=== PATIENT | male | born 1955 | race Caucasian/White ===

== ENCOUNTER 2016-08-25 19:56 | Observation (INO) | payer SELFPAY ==
--- NOTE | 2016-08-25 20:51 | CT ---
EXAM DESCRIPTION: CT HEAD WITHOUT INTRAVENOUS CONTRAST CLINICAL HISTORY: Dizziness COMPARISON: None TECHNIQUE: CT of the head was performed without intravenous contrast . FINDINGS: There is no intracranial hemorrhage, midline shift, mass effect or acute focal infarct. An MRI examination is more sensitive than the current study in evaluation of early acute infarcts, if present or clinically suspected. There is good deng/white matter differentiation. The ventricular system is normal. Visualized mastoid air cells are unremarkable. The paranasal sinuses show underlying changes of mild chronic sinusitis. There is no visualization of calvarial or skull base fractures. IMPRESSION: There are no acute intracranial findings. Electronically signed by: Wyatt Choe MD 08/25/2016 20:50
--- NOTE | 2016-08-25 20:53 | RAD ---
EXAM DESCRIPTION: X-RAY CHEST- TWO VIEW CLINICAL HISTORY: Dizziness. COMPARISON: 08/06/2016 TECHNIQUE: 2.0 views of the chest. FINDINGS: Chronic prominence of the interstitium is seen in the bilateral lung granados, without any superimposed airspace infiltrates or pleural effusions. There are no pneumothoraces. The cardiomediastinal contour is suggestive of stable cardiomegaly. IMPRESSION: Stable cardiomegaly without any acute lung parenchymal process Electronically signed by: Wyatt Choe MD 08/25/2016 20:51
[2016-08-25] MEDS ORDERED: ONDANSETRON ODT 8 MG TAB SL SCH (21:30)
[2016-08-25] MEDS ORDERED: MECLIZINE HCL 12.5 MG TAB PO ONE (22:00)
[2016-08-25] MEDS ORDERED: LACTATED RINGERS 500 ML IVS ONE (23:22)
[2016-08-25] MEDS ORDERED: IPRATROPIUM/ALBUTEROL 3 ML VIAL NEB ONE (23:23)
[2016-08-25] MEDS ORDERED: SUCRALFATE 1 GM/10 ML 1 GM UD PO ONE (23:26)
--- NOTE | 2016-08-26 00:32 | ED.PDOC ---
History of Present Illness - General Chief Complaint: General Stated Complaint: Dizzy Time Seen by Provider: 08/25/16 20:06 Source: patient Exam Limitations: no limitations - History of Present Illness Initial Comments: the patient is 60-year-old male presenting to the emergency room secondary to dizziness. It started at our so after he went to bed from eating. He has had difficulty standing since. He has also had some mild nausea. He is very anxious and has had a history of anxiety. He does have a history of significant pulmonary hypertension along with COPD and diabetes. He does take multiple medications which can certainly upset his stomach. No fevers. No sore throat. No significant near syncope. Timing/Duration: 1-3 hours Severity: moderate Improving Factors: rest Worsening Factors: movement Associated Symptoms: malaise, nausea/vomiting, shortness of breath, weakness Allergies/Adverse Reactions: Allergies Codeine Allergy (Verified 08/07/16 13:07) Penicillins Allergy (Verified 08/07/16 13:07) Home Medications: Ambulatory Orders Aspirin [Aspirin Adult Low Dose] 81 mg PO DAILY 06/08/16 Empagliflozin-Linagliptin [Glyxambi 10-5 mg] 1 tab PO DAILY 06/08/16 Glipizide [Glipizide Xl] 2.5 mg PO DAILY 06/08/16 Hydrochlorothiazide 25 mg PO MOWETH@0900 06/08/16 Ipratropium/Albuterol Inhaler [Combivent Respimat 20-100 Mcg/Act] 120 puff INH PRN PRN 06/08/16 Lisinopril 10 mg PO DAILY 06/08/16 amLODIPine BESYLATE [Norvasc] 5 mg PO DAILY 06/08/16 Azithromycin 500 mg PO DAILY #3 tab 07/15/16 Fluticasone Furoate-Vilanterol [Breo Ellipta] 1 inh IN DAILY #30 inh 07/15/16 Metoprolol Tartrate [Lopressor] 25 mg PO BIDFD #60 tab 07/15/16 guaiFENesin ER TAB [Mucinex Tab] 600 mg PO BID #60 tab 07/15/16 predniSONE [Prednisone] 10 mg PO DAILY #30 tab 07/15/16 Furosemide [Lasix] 20 mg PO DAILY #33 tab 08/06/16 Potassium Chloride Tab [K-Dur] 20 meq PO DAILY #30 tab 08/06/16 Ciprofloxacin [Cipro] 500 mg PO BID #10 tab 08/07/16 Review of Systems - Review of Systems Constitutional: States: malaise EENTM: States: no symptoms reported Respiratory: States: short of breath - chronic Cardiology: States: no symptoms reported Gastrointestinal/Abdominal: States: nausea Genitourinary: States: no symptoms reported Musculoskeletal: States: no symptoms reported Skin: States: no symptoms reported Neurological: States: other - he reports mild generalized weakness and moderate dizziness. All other Systems: No Change from Baseline Past Medical History (General) - Patient Medical History Hx Seizures: No Hx Stroke: No Hx Dementia: No Hx Asthma: No Hx of COPD: Yes Hx Cardiac Disorders: No Hx Congestive Heart Failure: Yes Hx Pacemaker: No Hx Hypertension: Yes Hx Thyroid Disease: No Hx Diabetes: Yes Hx Gastroesophageal Reflux: No Hx Renal Disease: No Hx Cancer: No Hx of HIV: No Hx Hepatitis C: No Hx MRSA: No Surgical History: tonsillectomy - Vaccination History Hx Tetanus, Diphtheria Vaccination: Yes Hx Influenza Vaccination: Yes Hx Pneumococcal Vaccination: Yes Immunizations Up to Date: Yes - Social History Hx Tobacco Use: No Hx Chewing Tobacco Use: Yes - chews on cigars Hx Alcohol Use: No Hx Substance Use: No Hx Substance Use Treatment: No Hx Depression: No Hx Physical Abuse: No Hx Emotional Abuse: No Hx Suspected Abuse: No - Activities of Daily Living Hospice Agency (if applicable):: None - Female History Patient : No Family Medical History - Family History Mother Living Status: Hx Cardiac Disease: Yes Hx Family Diabetes: Yes Brother Family History: Unknown Name: Eliezer Braden Age (years): 60 Living Status: Still Living Hx Family Asthma: No Hx Family Congestive Heart Failure: No Hx Family Hypertension: Yes Hx Family Stroke: No Hx Cardiac Disease: No Hx Family Diabetes: Yes Hx Family Cancer: No Physical Exam - Physical Exam General Appearance: Alert, Anxious, No apparent distress Eye Exam: bilateral normal - no significant abnormal nystagmus. Visual acuity appears preserved once his glasses are cleaned Ears, Nose, Throat: normal pharynx, other - bilateral cerumen impaction. Neck: full range of motion, supple Respiratory: chest non-tender, lungs clear, normal breath sounds, no respiratory distress, no accessory muscle use Cardiovascular/Chest: normal peripheral pulses, regular rate, rhythm, no edema Peripheral Pulses: radial,right: 2+, radial,left: 2+, dorsalis pedis,right: 2+, dorsalis pedis,left: 2+ Gastrointestinal/Abdominal: non tender, soft Rectal Exam: deferred Back Exam: normal inspection Extremity: normal range of motion, non-tender, normal inspection, no pedal edema , normal capillary refill Neurologic: alert, oriented x 3 - moderately anxious Skin Exam: normal color Comments: Vital Signs - 24 hr 08/25/16 08/25/16 08/25/16 20:00 20:02 23:40 Temperature 97.3 F L Pulse Rate 62 57 L Pulse Rate [ 62 62 Left Radial] Respiratory 20 20 18 Rate Blood Pressure 141/69 [Left Arm] O2 Sat by Pulse 97 98 Oximetry Progress - Progress Progress: 08/26/16 00:34 the patient is a 60-year-old male presenting to the emergency room secondary to dizziness and nausea. The source of this is uncertain at this time. Head CT is negative. Lab work is otherwise within normal limits with this patient. His blood pressure is mildly low for him. He may be having some orthostatic issues. He is receiving a small fluid bolus to see if this improves his situation. Additionally he does have significant anxiety which is likely contributing. The patient will be monitored overnight due to his significant cardiopulmonary issues. It is entirely possible he may be coming down with a gastroenteritis giving him these symptoms, however at this time it is simply not clear. He is too shaky on his feet to go home and care for himself at this time. Admit and follow for issues above. - Results/Orders Results/Orders: 08/25/16 20:07 Telemetry .CONTINUOUS 08/25/16 20:15 EKG STAT normal sinus rhythm. Mild right axis deviation. PACs. Poor R-wave progression. No acute ST segment changes otherwise concerning for ischemia. Chest x-ray shows no definitive infiltrate. it does show chronic changes. Moderate cardiomegaly. 08/25/16 21:30 Ondansetron Odt [Zofran ODT] 4 mg SL ONCE 08/25/16 23:40 SVN/Updraft Therapy ONCE Laboratory Results - last 24 hr 08/25/16 08/25/16 20:35 22:48 WBC 7.7 RBC 4.70 Hgb 14.7 Hct 43.5 MCV 92.6 MCH 31.3 H MCHC 33.9 RDW 14.3 Plt Count 137 MPV 7.4 Absolute Neuts (auto) 4.20 Absolute Lymphs (auto) 2.60 Absolute Monos (auto) 0.70 Absolute Eos (auto) 0.10 Absolute Basos (auto) 0.10 Neutrophils % 54.6 Lymphocytes % 33.4 Monocytes % 9.3 H Eosinophils % 1.6 Basophils % 1.1 PT 11.2 INR 0.990 PTT (SP) 32.6 Sodium 137 Potassium 3.8 Chloride 102 Carbon Dioxide 28 Anion Gap 10.8 L BUN 17 Creatinine 0.79 BUN/Creatinine Ratio 21.5 H Random Glucose 153 H Serum Osmolality 278.4 Calcium 9.1 Magnesium 1.8 Total Bilirubin 0.3 AST 27 ALT 39 Alkaline Phosphatase 62 Creatine Kinase 51 CK-MB (CK-2) 1.1 CK-MB (CK-2) % Not Reportable Troponin I < 0.02 B-Natriuretic Peptide 16.2 Serum Total Protein 6.9 Albumin 4.0 Globulin 2.9 Albumin/Globulin Ratio 1.4 Urine Color Yellow Urine Appearance Clear Urine pH 7.0 Ur Specific Ashley 1.015 Urine Protein Negative Urine Glucose (UA) >=1000 H Urine Ketones Negative Urine Blood Trace-lysed H Urine Nitrite Negative Urine Bilirubin Negative Urine Urobilinogen 1.0 Ur Leukocyte Esterase Negative Urine RBC 1-3 Urine WBC 0-1 Ur Epithelial Cells 0-1 Urine Bacteria 0 - EKG/XRAY/CT CT Ordered: Yes Departure - Departure Clinical Impression: Dizziness, Nausea, Dehydration, mild Disposition: Admit Patient Home Medications: Ambulatory Orders Aspirin [Aspirin Adult Low Dose] 81 mg PO DAILY 06/08/16 Empagliflozin-Linagliptin [Glyxambi 10-5 mg] 1 tab PO DAILY 06/08/16 Glipizide [Glipizide Xl] 2.5 mg PO DAILY 06/08/16 Hydrochlorothiazide 25 mg PO MOWETH@0900 06/08/16 Ipratropium/Albuterol Inhaler [Combivent Respimat 20-100 Mcg/Act] 120 puff INH PRN PRN 06/08/16 Lisinopril 10 mg PO DAILY 06/08/16 amLODIPine BESYLATE [Norvasc] 5 mg PO DAILY 06/08/16 Azithromycin 500 mg PO DAILY #3 tab 07/15/16 Fluticasone Furoate-Vilanterol [Breo Ellipta] 1 inh IN DAILY #30 inh 07/15/16 Metoprolol Tartrate [Lopressor] 25 mg PO BIDFD #60 tab 07/15/16 guaiFENesin ER TAB [Mucinex Tab] 600 mg PO BID #60 tab 07/15/16 predniSONE [Prednisone] 10 mg PO DAILY #30 tab 07/15/16 Furosemide [Lasix] 20 mg PO DAILY #33 tab 08/06/16 Potassium Chloride Tab [K-Dur] 20 meq PO DAILY #30 tab 08/06/16 Ciprofloxacin [Cipro] 500 mg PO BID #10 tab 08/07/16 Decision To Admit - Decistion To Admit Decision to Admit Reason: Medical Nature Decision to Admit Date: 08/26/16 Decision to Admit Time: 00:36
[2016-08-26] MEDS ORDERED: ACETAMINOPHEN 325 MG TAB PO PRN (02:32)
[2016-08-26] MEDS ORDERED: SODIUM CHLORIDE 0.9% (FLUSH) 10 ML SYG IV PRN (02:32)
[2016-08-26] MEDS ORDERED: ALBUTEROL SULFATE 2.5 MG/3 ML VIAL NEB PRN (02:32)
[2016-08-26] MEDS ORDERED: ONDANSETRON INJ 4 MG/2 ML VIAL IV PRN (02:32)
[2016-08-26] MEDS ORDERED: ALPRAZolam 0.25 MG TAB PO PRN (02:41)
[2016-08-26] MEDS ORDERED: KCL 20MEQ/D5NS 1,000 ML IVS PRN (02:42)
[2016-08-26] MEDS ORDERED: IV SET AND CAP CHANGE INJ INJ SCH (03:00)
[2016-08-26] MEDS ORDERED: KCL 20 MEQ/NS 1,000 ML IVS ONE (03:06)
[2016-08-26] MEDS ORDERED: KCL 20 MEQ/NS 1,000 ML IVS PRN (03:08)
[2016-08-26 06:37] VITALS: BP 143/77; TEMP 97.5; O2SAT 97
[2016-08-26] MEDS ORDERED: DEXTROSE 50% 25 GM/50 ML SYG IV PRN (07:12)
[2016-08-26] MEDS ORDERED: GLUCAGON INJ 1 MG VIAL SUBCU PRN (07:12)
[2016-08-26] MEDS ORDERED: IPRATROPIUM/ALBUTEROL 3 ML VIAL INH SCH (08:00)
[2016-08-26] MEDS ORDERED: SODIUM CHLORIDE 0.9% (FLUSH) 10 ML SYG IV SCH (09:00)
--- NOTE | 2016-08-26 10:04 | SSS ---
DATE OF ADMISSION: 08/26/16 DATE OF DISCHARGE: 08/26/16 SUPERVISING PHYSICIAN: Shaina Fulton MD CHIEF COMPLAINT: Dizziness. HISTORY OF PRESENT ILLNESS: This is a 60-year-old male who presents to the Emergency Room secondary to dizziness. It started earlier in the evening. He was visiting with friends and after he was eating, he became very dizzy. He had difficulty standing and he also had some mild nausea with one or two bouts of vomiting. He also complains of anxiety as he has a significant history of anxiety. He also has pulmonary hypertension, chronic obstructive pulmonary disease and diabetes. He takes multiple medications and it is unclear whether any of them were new that may have caused the dizziness as well as stomach upset. He had difficulty standing up in the Emergency Room, but his CBC was basically within normal limits. His chemistry was also basically within normal limits. His urinalysis showed a glucose of greater than 1000 as well as trace of lysed urine blood. It was otherwise negative. He had a head CT done and it showed no acute intracranial findings. His chest x-ray showed stable cardiomegaly without any acute lung parenchymal processes. He was given some Carafate and ranitidine in the Emergency Room. He was also given some meclizine. He received 1 liter of fluids and I was called for admission for observation. PAST MEDICAL HISTORY: 1. Hypertension. 2. Chronic obstructive pulmonary disease. 3. Diabetes mellitus, type 2. 4. Obesity. 5. Sleep apnea. 6. Emphysema. 7. History of plantar fasciitis. PAST SURGICAL HISTORY: 1. Tonsillectomy as a child. 2. Right arm [place] [address] Nix. CURRENT MEDICATIONS: Per the EMR and awaiting verification. ALLERGIES: CODEINE, PENICILLIN. FAMILY HISTORY: Positive for coronary artery disease and diabetes. SOCIAL HISTORY: The patient is a former smoker. He denies smoking in the last four to five months. He denies any ETOH use or illicit drug use. 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 He is single and lives in [place]. REVIEW OF SYSTEMS: GENERAL: Denies fever, fatigue or weight gain. HEENT: Complains of seasonal allergies although he is not having problems at this time. Denies ear pain, vision changes or sinus symptoms. RESPIRATORY: Complains of occasional wheezing and coughing, but denies shortness of breath. CARDIAC: Denies chest pain, palpitations or tachycardia. GASTROINTESTINAL: Complains of nausea with no vomiting although earlier today, he had several bouts of vomiting. GENITOURINARY: No dysuria or hematuria. EXTREMITIES: Denies any swelling or pain. NEUROLOGIC: Complains of dizziness and some generalized weakness. Denies any headaches or seizures. PHYSICAL EXAMINATION: VITAL SIGNS: Afebrile. Heart rate 62. Blood pressure 143/77. Respiratory rate 20. O2 saturation 97%. GENERAL: This is a 60-year-old, obese male who is lying in his hospital bed. He is in no acute distress. HEENT: Normocephalic, atraumatic. Pupils are equal and reactive. Oropharynx is clear. Oral mucous membranes are moist. NECK: Supple without mass. No jugular venous distention. RESPIRATORY: Somewhat diminished throughout, otherwise clear to auscultation bilaterally. CHEST: There is equal rise and fall of the chest with inspiration and expiration. CARDIAC: Regular rate and rhythm. ABDOMEN: Soft, very large and rounded. Bowel sounds are positive. EXTREMITIES: No cyanosis, clubbing or edema. NEUROLOGIC: Awake, alert and oriented times three. LABORATORY: Laboratory and films are as per the history of present illness. ASSESSMENT: 1. Dizziness, resolved with fluids and Antivert. 2. Nausea and vomiting, resolved with hydration and Carafate. 3. Chronic obstructive pulmonary disease with poor compliance. 4. Generalized weakness. 5. Obesity. 6. History of tobacco abuse. PLAN: The patient was admitted overnight. He was given fluids. He required no further antiemetics. His vital signs were stable overnight. He will be discharged this morning in stable condition. He is to continue his present home medications. I have added Antivert for him for the dizziness. He is to followup closely with Sandra Ho at [facility] within the next one to two weeks. Otherwise, he can return to the hospital or followup with [facility] for any further problems. Dr. Fulton is the collaborating physician and available for consultation. #[id number] [facility]ITALR[facility]
[2016-08-26] MEDS ORDERED: INSULIN LISPRO 100 UNITS/ML PEN SUBCU SCH (11:30)
== END 2016-08-26 08:26 | disposition home or self-care (01) ==
LOC: ER 19:56 → MS 08-26 02:01
PROVIDERS: ADMIT Nurse Practitioner Acute Care; ATTEND Nurse Practitioner Acute Care
DX: R42 Dizziness and giddiness (principal); R11.2 Nausea with vomiting, unspecified; J44.9 Chronic obstructive pulmonary disease, unspecified; R53.1 Weakness; E66.9 Obesity, unspecified; I10 Essential (primary) hypertension; E11.9 Type 2 diabetes mellitus without complications; G47.30 Sleep apnea, unspecified; Z68.35 Body mass index [BMI] 35.0-35.9, adult; Z79.82 Long term (current) use of aspirin; Z79.84 Long term (current) use of oral hypoglycemic drugs; Z79.52 Long term (current) use of systemic steroids; Z79.899 Other long term (current) drug therapy; Z88.0 Allergy status to penicillin; Z88.6 Allergy status to analgesic agent; Z87.891 Personal history of nicotine dependence; Z82.49 Family history of ischemic heart disease and other diseases of the circulatory system; Z83.3 Family history of diabetes mellitus

== ENCOUNTER → 2016-11-12 | Outpatient (CLI) | payer SELFPAY | END | disposition home or self-care (01) | LOC: LAB.O 07:50 | PROVIDERS: ATTEND Internal Medicine Endocrinology, Diabetes & Metabolism | DX: E11.65 Type 2 diabetes mellitus with hyperglycemia (principal) ==

== ENCOUNTER 2016-12-28 17:32 | Emergency (ER) | payer SELFPAY ==
[2016-12-28 17:49] VITALS: BP 151/74
--- NOTE | 2016-12-28 18:14 | ED.PDOC ---
History of Present Illness - General Chief Complaint: ENT Problem Stated Complaint: sorethroat Time Seen by Provider: 12/28/16 18:14 Source: patient Exam Limitations: no limitations - History of Present Illness Initial Comments: Jose Francisco Braden 60 y/o male with DM2 and HTN stated started having achy throat and slight cough yesterday which had got worse today. Timing/Duration: yesterday EENT Location: throat Prearrival Treatment: no prearrival treatment Improving Factors: rest Worsening Factors: nothing Associated Symptoms: cough Allergies/Adverse Reactions: Allergies Codeine Allergy (Verified 12/28/16 17:47) Penicillins Allergy (Verified 12/28/16 17:47) Home Medications: Ambulatory Orders Aspirin [Aspirin Adult Low Dose] 81 mg PO DAILY 06/08/16 Empagliflozin-Linagliptin [Glyxambi 10-5 mg] 1 tab PO DAILY 06/08/16 Glipizide [Glipizide Xl] 2.5 mg PO DAILY 06/08/16 Hydrochlorothiazide 25 mg PO MOWETH@0900 06/08/16 Ipratropium/Albuterol Inhaler [Combivent Respimat 20-100 Mcg/Act] 120 puff INH PRN PRN 06/08/16 Lisinopril 10 mg PO DAILY 06/08/16 amLODIPine BESYLATE [Norvasc] 5 mg PO DAILY 06/08/16 Fluticasone Furoate-Vilanterol [Breo Ellipta 100-25 Mcg/INH] 1 inh IN DAILY #30 inh 07/15/16 Metoprolol Tartrate [Lopressor] 25 mg PO BIDFD #60 tab 07/15/16 guaiFENesin ER TAB [Mucinex Tab] 600 mg PO BID #60 tab 07/15/16 Furosemide [Lasix] 20 mg PO DAILY #33 tab 08/06/16 Potassium Chloride Tab [K-Dur] 20 meq PO DAILY #30 tab 08/06/16 Meclizine HCl 25 mg PO Q4H PRN #100 tab 08/26/16 Doxycycline Hyclate 100 mg PO BID #14 tab 12/28/16 Review of Systems - Review of Systems Constitutional: States: no symptoms reported EENTM: States: see HPI Respiratory: States: see HPI, cough - slightly productive Cardiology: States: no symptoms reported Gastrointestinal/Abdominal: States: no symptoms reported Genitourinary: States: no symptoms reported Musculoskeletal: States: no symptoms reported Skin: States: no symptoms reported Neurological: States: no symptoms reported Endocrine: States: no symptoms reported Hematologic/Lymphatic: States: no symptoms reported Past Medical History (General) - Patient Medical History Hx Seizures: No Hx Stroke: No Hx Dementia: No Hx Asthma: No Hx of COPD: Yes Hx Cardiac Disorders: No Hx Congestive Heart Failure: No Hx Pacemaker: No Hx Hypertension: Yes Hx Thyroid Disease: No Hx Diabetes: Yes Hx Gastroesophageal Reflux: No Hx Renal Disease: No Hx Cancer: No Hx of HIV: No Hx Hepatitis C: No Hx MRSA: No Surgical History: tonsillectomy, other - excision cyst right arm - Vaccination History Hx Tetanus, Diphtheria Vaccination: Yes Hx Influenza Vaccination: Yes Hx Pneumococcal Vaccination: Yes - Social History Hx Tobacco Use: No Hx Chewing Tobacco Use: Yes - chews on cigars Hx Alcohol Use: No Hx Substance Use: No Hx Substance Use Treatment: No Hx Depression: No Hx Physical Abuse: No Hx Emotional Abuse: No Hx Suspected Abuse: No - Activities of Daily Living Hospice Agency (if applicable):: None Grooming Ability: Independent Eating (Feeding) Ability: Independent Toileting Ability: Independent - Female History Patient is a Female of Child Bearing Age (10 -59 yrs old): No Patient : No Family Medical History - Family History Mother Living Status: Hx Cardiac Disease: Yes - brother Hx Family Diabetes: Yes - mom Brother Family History: Unknown Name: Eliezer Braden Age (years): 60 Living Status: Still Living Hx Family Asthma: No Hx Family Congestive Heart Failure: No Hx Family Hypertension: Yes Hx Family Stroke: No Hx Cardiac Disease: No Hx Family Diabetes: Yes Hx Family Cancer: No Physical Exam - Physical Exam General Appearance: Alert, No apparent distress Eye Exam: bilateral normal Ear Exam: bilateral ear: auricle normal, canal normal, TM normal, other - SCALY RASH RIGHT PREAURICULAR AREA Nasal Exam: normal inspection Throat Exam: normal mouth inspection, other - pharyngeal erythema Neck: non-tender, full range of motion Cardiovascular/Respiratory: regular rate, rhythm, no M/R/G, normal peripheral pulses, wheezing - mild Abdominal Exam: non-tender, no organomegaly Neurologic: no motor/sensory deficits, alert, normal mood/affect, oriented x 3 Skin Exam: normal color, warm/dry Progress - Results/Orders Results/Orders: 12/28/16 18:08 STREP A SCREEN CULTURE Stat 12/28/16 18:15 SVN/Updraft Therapy .ONCE 12/28/16 18:58 Doxycycline Hyclate [Vibramycin] 100 mg PO ONCE ONE 12/29/16 09:00 Updrafts Daily Laboratory Results Group A Strep DNA Negative (NEGATIVE) 12/28/16 18:08 Vital Signs - 8 hr 12/28/16 12/28/16 17:40 17:47 Temperature 100.0 F H Pulse Rate [ 96 H pulse ox] Respiratory 20 20 Rate Blood Pressure 151/74 [Left Arm] O2 Sat by Pulse 94 L Oximetry - EKG/XRAY/CT XRAY: chest - no acute abnormality Departure - Departure Clinical Impression: Nasopharyngitis acute, Bronchospasm Time of Disposition: 18:48 Disposition: Discharge to Home or Self Care Condition: Good Departure Forms: ED Discharge - Pt. Copy, Patient Portal Self Enrollment Instructions: Sore Throat, DI for Viral Pharyngitis Referrals: Sandra Ho FNP [Primary Care Provider] - 1-2 Weeks Prescriptions: Doxycycline Hyclate 100 mg PO BID #14 tab Home Medications: Ambulatory Orders Aspirin [Aspirin Adult Low Dose] 81 mg PO DAILY 06/08/16 Empagliflozin-Linagliptin [Glyxambi 10-5 mg] 1 tab PO DAILY 06/08/16 Glipizide [Glipizide Xl] 2.5 mg PO DAILY 06/08/16 Hydrochlorothiazide 25 mg PO MOWETH@0900 06/08/16 Ipratropium/Albuterol Inhaler [Combivent Respimat 20-100 Mcg/Act] 120 puff INH PRN PRN 06/08/16 Lisinopril 10 mg PO DAILY 06/08/16 amLODIPine BESYLATE [Norvasc] 5 mg PO DAILY 06/08/16 Fluticasone Furoate-Vilanterol [Breo Ellipta 100-25 Mcg/INH] 1 inh IN DAILY #30 inh 07/15/16 Metoprolol Tartrate [Lopressor] 25 mg PO BIDFD #60 tab 07/15/16 guaiFENesin ER TAB [Mucinex Tab] 600 mg PO BID #60 tab 07/15/16 Furosemide [Lasix] 20 mg PO DAILY #33 tab 08/06/16 Potassium Chloride Tab [K-Dur] 20 meq PO DAILY #30 tab 08/06/16 Meclizine HCl 25 mg PO Q4H PRN #100 tab 08/26/16 Doxycycline Hyclate 100 mg PO BID #14 tab 12/28/16 Additional Instructions: FOLLOW UP WITH PRIMARY MD 12/30/16 CALL FOR APPOINTMENT ;rETURN TO EMERGENCY ROOM NEEDED
[2016-12-28] MEDS ORDERED: IPRATROPIUM/ALBUTEROL 3 ML VIAL NEB ONE (18:16)
--- NOTE | 2016-12-28 18:37 | RAD ---
PROCEDURE: Chest,2 Views CLINICAL HISTORY: cough INDICATION: Same as above COMPARISON: 08/25/2016 TECHNIQUE: PA and and lateral chest radiographs were obtained. FINDINGS: The lung granados are well inflated. There are no discrete airspace infiltrates, pneumothoraces or pleural effusions. The pulmonary vascularity is normal The cardiomediastinal silhouette is stable and suggestive of stable cardiomegaly. IMPRESSION: There is no acute pleural-parenchymal process seen in the imaged lung granados. Stable cardiomegaly Electronically signed by: Wyatt Choe MD 12/28/2016 6:37 PM CDT Workstation: [id number]
[2016-12-28] MEDS ORDERED: DOXYCYCLINE TAB (ER DISPENSE) 100 MG CAP PO ONE (18:46)
[2016-12-28] MEDS ORDERED: ACETAMINOPHEN 325 MG TAB PO ONE (18:46)
[2016-12-28] MEDS ORDERED: DOXYCYCLINE HYCLATE CAP 100 MG CAP PO ONE (18:58)
[2016-12-28 19:09] VITALS: TEMP 99.5
[2016-12-29 11:49] VITALS: O2SAT 99
== END 2016-12-28 19:07 | disposition home or self-care (01) ==
LOC: ER 17:32
DX: J00 Acute nasopharyngitis [common cold] (principal); J98.01 Acute bronchospasm; E11.9 Type 2 diabetes mellitus without complications; I10 Essential (primary) hypertension; J44.9 Chronic obstructive pulmonary disease, unspecified; Z88.6 Allergy status to analgesic agent; Z88.0 Allergy status to penicillin; Z79.82 Long term (current) use of aspirin; Z79.899 Other long term (current) drug therapy

== ENCOUNTER 2017-01-06 18:27 | Emergency (ER) | payer SELFPAY ==
[2017-01-06] MEDS ORDERED: IPRATROPIUM/ALBUTEROL 3 ML VIAL INH ONE (18:41)
[2017-01-06] MEDS ORDERED: methylPREDNISolone SODIUM SUC 125 MG/2 ML VIAL IV ONE (18:45)
--- NOTE | 2017-01-06 18:49 | ED.PDOC ---
History of Present Illness - General Stated Complaint: WHEEZING AND FEVER Time Seen by Provider: 01/06/17 18:34 Source: patient Exam Limitations: no limitations - History of Present Illness Initial Comments: C/O WHEEZING AND SUBJECTIVE FEVER X 1 WK. FEELS HOT. POS COUGH. H/O COPD W/ EXACERBATIONS. Timing/Duration: week Severity: severe Possible Cause: unknown cause Improving Factors: nothing Worsening Factors: movement Associated Symptoms: cough, fever/chills, shortness of breath, wheezing Allergies/Adverse Reactions: Allergies Codeine Allergy (Verified 12/28/16 17:47) Penicillins Allergy (Verified 12/28/16 17:47) Home Medications: Ambulatory Orders Aspirin [Aspirin Adult Low Dose] 81 mg PO DAILY 06/08/16 Empagliflozin-Linagliptin [Glyxambi 10-5 mg] 1 tab PO DAILY 06/08/16 Glipizide [Glipizide Xl] 2.5 mg PO DAILY 06/08/16 Hydrochlorothiazide 25 mg PO MOWETH@0900 06/08/16 Ipratropium/Albuterol Inhaler [Combivent Respimat 20-100 Mcg/Act] 120 puff INH PRN PRN 06/08/16 Lisinopril 10 mg PO DAILY 06/08/16 amLODIPine BESYLATE [Norvasc] 5 mg PO DAILY 06/08/16 Fluticasone Furoate-Vilanterol [Breo Ellipta 100-25 Mcg/INH] 1 inh IN DAILY #30 inh 07/15/16 Metoprolol Tartrate [Lopressor] 25 mg PO BIDFD #60 tab 07/15/16 guaiFENesin ER TAB [Mucinex Tab] 600 mg PO BID #60 tab 07/15/16 Furosemide [Lasix] 20 mg PO DAILY #33 tab 08/06/16 Potassium Chloride Tab [K-Dur] 20 meq PO DAILY #30 tab 08/06/16 Meclizine HCl 25 mg PO Q4H PRN #100 tab 08/26/16 Doxycycline Hyclate 100 mg PO BID #14 tab 12/28/16 Azithromycin Tab [Zithromax Tab] 250 mg PO QD #4 tab 01/06/17 methylPREDNISolone TAB [Medrol Tab] 4 mg PO DAILY #1 tab 01/06/17 Review of Systems - Review of Systems Constitutional: States: fever. Denies: chills EENTM: Denies: ear pain, nose congestion, throat pain Respiratory: States: cough, short of breath, wheezing Cardiology: Denies: chest pain, palpitations Gastrointestinal/Abdominal: States: no symptoms reported Genitourinary: States: no symptoms reported Musculoskeletal: States: no symptoms reported Skin: States: no symptoms reported Neurological: States: no symptoms reported Endocrine: States: no symptoms reported Hematologic/Lymphatic: States: no symptoms reported All other Systems: Reviewed and Negative Past Medical History (General) - Patient Medical History Hx Seizures: No Hx Stroke: No Hx Dementia: No Hx Asthma: No Hx of COPD: Yes Hx Cardiac Disorders: No Hx Congestive Heart Failure: No Hx Pacemaker: No Hx Hypertension: Yes Hx Thyroid Disease: No Hx Diabetes: Yes Hx Gastroesophageal Reflux: No Hx Renal Disease: No Hx Cancer: No Hx of HIV: No Hx Hepatitis C: No Hx MRSA: No - Vaccination History Hx Tetanus, Diphtheria Vaccination: Yes Hx Influenza Vaccination: Yes Hx Pneumococcal Vaccination: Yes - Social History Hx Tobacco Use: No Hx Chewing Tobacco Use: Yes - chews on cigars Hx Alcohol Use: No Hx Substance Use: No Hx Substance Use Treatment: No Hx Depression: No Hx Physical Abuse: No Hx Emotional Abuse: No Hx Suspected Abuse: No - Female History Patient : No Family Medical History - Family History Mother Living Status: Hx Cardiac Disease: Yes - brother Hx Family Diabetes: Yes - mom Brother Family History: Unknown Name: Eliezer Braden Age (years): 60 Living Status: Still Living Hx Family Asthma: No Hx Family Congestive Heart Failure: No Hx Family Hypertension: Yes Hx Family Stroke: No Hx Cardiac Disease: No Hx Family Diabetes: Yes Hx Family Cancer: No Physical Exam - Physical Exam General Appearance: Alert, Obvious distress Eye Exam: bilateral normal ENT Exam: normal ENT inspection, hearing grossly normal, TMs normal, pharynx normal Neck: non-tender, full range of motion, supple, normal inspection - NO JVD. NO BRUIT. Respiratory: chest non-tender, respiratory distress, wheezing, expiration, inspiration Cardiovascular/Chest: normal peripheral pulses, regular rate, rhythm, no edema, no gallop, no JVD, no murmur Gastrointestinal/Abdominal: normal bowel sounds, non tender Extremity: normal range of motion, non-tender, pedal edema Neurologic: alert, oriented x 3 Skin Exam: normal color, diaphoresis Lymphatic: no adenopathy Progress - Progress Progress: 01/06/17 20:22 PT STATES BREATHING IS NOT MUCH BETTER YET. STILL BL EXPIR WHEEZE IN ALL LUNG JARVIS UPON AUSCULTATION. GIVING 2ND DUONEBS TX. GIVING AZITHROMYCIN IV. DX: COPD EXACERBATION EKG = NSR. CXR NEG FOR IFXN, POS FOR COPD. BNAT NEG (20 CMP NEG CBC = MILD ANEMIA, MACROCYTIC, HYPERCHROMIC THUS POSSIBLY VIT B12 OR FOLIC ACID DEFICIENCY; NOT RELATED TO HIS ER VISIT THUS FURTHER W/U REFERRED TO PCP. 01/06/17 21:05 SOB IMPROVING SINCE 2ND DUONEB. STILL BL WHEEZES THUS GIVING 3RD DUONEB PRIOR TO DISCHARGE. 01/06/17 21:07 WILL RX AZITHROMYCIN (1ST DOSE GIVEN IV IN ER) AND MEDROL DOSE PACK FOR COPD EXACERBATION. SATS IMPROVED FROM 91% RA ON ER ADMISSION TO 99% RA. SAFE FOR DC TO HOME. - EKG/XRAY/CT EKG: Sinus Departure - Departure Clinical Impression: COPD exacerbation, Dyspnea, Hypoxia, Anemia, macrocytic Disposition: Discharge to Home or Self Care Condition: Good Instructions: DI for Chronic Obstructive Pulmonary Disease Diet: resume usual diet Activity: increase activity as tolerated Referrals: Sandra Ho FNP [Primary Care Provider] - 1-5 Days Prescriptions: Azithromycin Tab [Zithromax Tab] 250 mg PO QD #4 tab methylPREDNISolone TAB [Medrol Tab] 4 mg PO DAILY #1 tab Home Medications: Ambulatory Orders Aspirin [Aspirin Adult Low Dose] 81 mg PO DAILY 06/08/16 Empagliflozin-Linagliptin [Glyxambi 10-5 mg] 1 tab PO DAILY 06/08/16 Glipizide [Glipizide Xl] 2.5 mg PO DAILY 06/08/16 Hydrochlorothiazide 25 mg PO MOWETH@0900 06/08/16 Ipratropium/Albuterol Inhaler [Combivent Respimat 20-100 Mcg/Act] 120 puff INH PRN PRN 06/08/16 Lisinopril 10 mg PO DAILY 06/08/16 amLODIPine BESYLATE [Norvasc] 5 mg PO DAILY 06/08/16 Fluticasone Furoate-Vilanterol [Breo Ellipta 100-25 Mcg/INH] 1 inh IN DAILY #30 inh 07/15/16 Metoprolol Tartrate [Lopressor] 25 mg PO BIDFD #60 tab 07/15/16 guaiFENesin ER TAB [Mucinex Tab] 600 mg PO BID #60 tab 07/15/16 Furosemide [Lasix] 20 mg PO DAILY #33 tab 08/06/16 Potassium Chloride Tab [K-Dur] 20 meq PO DAILY #30 tab 08/06/16 Meclizine HCl 25 mg PO Q4H PRN #100 tab 08/26/16 Doxycycline Hyclate 100 mg PO BID #14 tab 12/28/16 Azithromycin Tab [Zithromax Tab] 250 mg PO QD #4 tab 01/06/17 methylPREDNISolone TAB [Medrol Tab] 4 mg PO DAILY #1 tab 01/06/17
--- NOTE | 2017-01-06 19:11 | RAD ---
EXAM DESCRIPTION: Chest,2 Views CLINICAL HISTORY: 61 years Male DYSPNEA COMPARISON: 12/28/2016 FINDINGS: Cardiac enlargement which appears stable. Pulmonary hyperinflation consistent with COPD, also stable. Multilevel degenerative change in the spine. Some increased perihilar markings which appears stable as compared to the previous study and stable basilar atelectasis. IMPRESSION: No interval change Electronically signed by: Temitope Young 01/06/2017 7:11 PM CDT
[2017-01-06] MEDS: SODIUM CHLORIDE 0.9% (FLUSH) 10 ML SYG IV PRN ×2 (19:31→20:40)
[2017-01-06] MEDS ORDERED: IPRATROPIUM/ALBUTEROL 3 ML VIAL NEB ONE ×2 (20:20→21:06)
[2017-01-06] MEDS ORDERED: AZITHROMYCIN IV 500 MG in SODIUM CHLORIDE 0.9% 250ML 250 ML IVPB ONE (20:21)
[2017-01-06] MEDS ORDERED: SODIUM CHLORIDE 0.9% 250ML 250 ML ONE (20:30)
[2017-01-06] MEDS ORDERED: AZITHROMYCIN IV 500 MG VIAL IVPB ONE (20:30)
[2017-01-06 22:11] VITALS: O2SAT 94
[2017-01-06 22:48] VITALS: BP 133/65; TEMP 98.8
== END 2017-01-06 22:48 | disposition home or self-care (01) ==
LOC: ER 18:27
DX: J44.1 Chronic obstructive pulmonary disease with (acute) exacerbation (principal); R09.02 Hypoxemia; D53.9 Nutritional anemia, unspecified; F17.290 Nicotine dependence, other tobacco product, uncomplicated; E11.9 Type 2 diabetes mellitus without complications; I10 Essential (primary) hypertension; Z79.899 Other long term (current) drug therapy; Z79.82 Long term (current) use of aspirin; Z88.0 Allergy status to penicillin; Z88.6 Allergy status to analgesic agent
CPT/HCPCS: 36415; 71020; 80053; 83880; 85025; 93005; 94640; 94760; J0456; J2930; J7050; J7620

== ENCOUNTER 2017-01-30 11:14 | Emergency (ER) | payer SELFPAY ==
--- NOTE | 2017-01-30 11:40 | ED.PDOC ---
History of Present Illness - General Chief Complaint: Abdominal Pain Stated Complaint: Lower abd pain Time Seen by Provider: 01/30/17 11:24 Information Source: patient, RN notes reviewed, Vital Signs reviewed Exam Limitations: no limitations - History of Present Illness Initial Comments: Patient comes in with c/o sharp, constant lower abd pain that started @ 10am this morning. Reports he ate at [employer] and the pain started after that. + nausea but no vomiting. Feels like he needs to have a bowel movement but can't. + Sweating but no fever or chills. No CP or SOB. Denies urinary symptoms. Abdominal Pain Onset Location: suprapubic Pain Radiation: no radiation Quality: moderate, sharpness Timing/Duration: 1-3 hours Improving Factors: nothing Worsening Factors: nothing Associated Symptoms: diaphoresis, nausea/vomiting Review of Systems - Review of Systems Constitutional: States: diaphoresis. Denies: chills, fever, malaise, weakness Respiratory: States: no symptoms reported Cardiology: States: no symptoms reported Gastrointestinal/Abdominal: States: see HPI, abdominal pain, nausea. Denies: diarrhea, vomiting Genitourinary: States: no symptoms reported Musculoskeletal: States: no symptoms reported Skin: States: no symptoms reported Neurological: States: no symptoms reported. Denies: headache All other Systems: No Change from Baseline Past Medical History (General) - Patient Medical History Hx Seizures: No Hx Stroke: No Hx Dementia: No Hx Asthma: No Hx of COPD: Yes Hx Cardiac Disorders: No Hx Congestive Heart Failure: No Hx Pacemaker: No Hx Hypertension: Yes Hx Thyroid Disease: No Hx Diabetes: Yes Hx Gastroesophageal Reflux: No Hx Renal Disease: No Hx Cancer: No Hx of HIV: No Hx Hepatitis C: No Hx MRSA: No - Vaccination History Hx Tetanus, Diphtheria Vaccination: Yes Hx Influenza Vaccination: Yes Hx Pneumococcal Vaccination: Yes - Social History Hx Tobacco Use: No Hx Chewing Tobacco Use: Yes - chews on cigars Hx Alcohol Use: No Hx Substance Use: No Hx Substance Use Treatment: No Hx Depression: No Hx Physical Abuse: No Hx Emotional Abuse: No Hx Suspected Abuse: No - Female History Patient : No Family Medical History - Family History Mother Living Status: Hx Cardiac Disease: Yes - brother Hx Family Diabetes: Yes - mom Brother Family History: Unknown Name: Eliezer Braden Age (years): 60 Living Status: Still Living Hx Family Asthma: No Hx Family Congestive Heart Failure: No Hx Family Hypertension: Yes Hx Family Stroke: No Hx Cardiac Disease: No Hx Family Diabetes: Yes Hx Family Cancer: No Physical Exam - Physical Exam General Appearance: Alert, No apparent distress, Obese, Restless, Unkempt, Well Developed, Well Groomed, Well Hydrated, Well Nourished Neck: non-tender, full range of motion, supple, normal inspection Respiratory: lungs clear, normal breath sounds, no respiratory distress, no accessory muscle use Cardiovascular/Chest: regular rate, rhythm, no gallop, no murmur Gastrointestinal/Abdominal: normal bowel sounds, soft, no organomegaly, guarding , rebound - suprapubic & LLQ, tenderness - suprapubic, LLQ & LUQ Extremity: normal range of motion Neurologic: alert, normal mood/affect, oriented x 3 Skin Exam: normal color, warm/dry Progress - Progress Progress: 01/30/17 14:07 Patient reports he is feeling better. Discussed need to see Urologist for his kidney stone. Dr. Ceja is here in the specialty clinic tomorrow. - EKG/XRAY/CT CT Ordered: Yes - 5mm kidney stone @ R UVJ with mild hydronephrosis per Rad Departure - Departure Clinical Impression: Kidney stone on right side, Hydronephrosis of right kidney Time of Disposition: 14:54 Disposition: Discharge to Home or Self Care Condition: Good Departure Forms: ED Discharge - Pt. Copy, Patient Portal Self Enrollment Instructions: Kidney Stones -- Adult Diet: resume usual diet Activity: increase activity as tolerated Referrals: Sandra Ho FNP [Primary Care Provider] - 1-2 Weeks DAE CEJA MD [Referring] - 1-2 Days Prescriptions: Tramadol HCl 50 mg PO Q6HR PRN #15 tab PRN Reason: Moderate To Severe Pain Home Medications: Ambulatory Orders Aspirin [Aspirin Adult Low Dose] 81 mg PO DAILY 06/08/16 Empagliflozin-Linagliptin [Glyxambi 10-5 mg] 1 tab PO DAILY 06/08/16 Glipizide [Glipizide Xl] 2.5 mg PO DAILY 06/08/16 Hydrochlorothiazide 25 mg PO MOWETH@0900 06/08/16 Ipratropium/Albuterol Inhaler [Combivent Respimat 20-100 Mcg/Act] 120 puff INH PRN PRN 06/08/16 Lisinopril 10 mg PO DAILY 06/08/16 amLODIPine BESYLATE [Norvasc] 5 mg PO DAILY 06/08/16 Fluticasone Furoate-Vilanterol [Breo Ellipta 100-25 Mcg/INH] 1 inh IN DAILY #30 inh 07/15/16 Metoprolol Tartrate [Lopressor] 25 mg PO BIDFD #60 tab 07/15/16 guaiFENesin ER TAB [Mucinex Tab] 600 mg PO BID #60 tab 07/15/16 Furosemide [Lasix] 20 mg PO DAILY #33 tab 08/06/16 Potassium Chloride Tab [K-Dur] 20 meq PO DAILY #30 tab 08/06/16 Meclizine HCl 25 mg PO Q4H PRN #100 tab 08/26/16 Doxycycline Hyclate 100 mg PO BID #14 tab 12/28/16 Azithromycin Tab [Zithromax Tab] 250 mg PO QD #4 tab 01/06/17 methylPREDNISolone TAB [Medrol Tab] 4 mg PO DAILY #1 tab 01/06/17 Tramadol HCl 50 mg PO Q6HR PRN #15 tab 01/30/17 Additional Instructions: Increase water intake
[2017-01-30] MEDS ORDERED: SODIUM CHLORIDE 0.9% 1000ML 1,000 ML IVS ONE (11:50)
[2017-01-30] MEDS ORDERED: KETOROLAC TROMETHAMINE INJ 30 MG/ML VIAL IV ONE (13:40)
--- NOTE | 2017-01-30 13:53 | CT ---
EXAM DESCRIPTION: Abdomen/Pelvis w/Contrast CLINICAL HISTORY: abd pain with rebound COMPARISON: April 15, 2015 TECHNIQUE: CT of the abdomen and Pelvis was performed with IV contrast. This exam was performed according to our departmental dose-optimization program, which includes automated exposure control, adjustment of the mA and/or kV according to patient size and/or use of iterative reconstruction technique. FINDINGS: There is a 5 mm calculus at or just proximal to the right UVJ resulting in mild right-sided hydroureteronephrosis, perinephric and periureteral inflammation. The left kidney and left ureter are unremarkable. No bladder calculus. No colonic wall thickening or pericolonic inflammation. Normal appendix. No dilated small bowel loops. No pneumoperitoneum or adenopathy. No calcified gallstone. The liver, spleen, pancreas and adrenals are unremarkable. There is minimal anterior compression of the T8 body which is likely not acute. IMPRESSION: 5 mm calculus at or just proximal to the right UVJ resulting in mild right-sided hydroureteronephrosis, perinephric and periureteral inflammation. Urologic consultation is recommended. Electronically signed by: Jaspreet Segura MD 01/30/2017 1:51 PM CDT Workstation: [id number]
[2017-01-30 16:01] VITALS: BP 136/72; TEMP 97.2; O2SAT 96
== END 2017-01-30 15:00 | disposition home or self-care (01) ==
LOC: ER 11:14
DX: N13.2 Hydronephrosis with renal and ureteral calculous obstruction (principal); J44.9 Chronic obstructive pulmonary disease, unspecified; I10 Essential (primary) hypertension; E11.9 Type 2 diabetes mellitus without complications; F17.220 Nicotine dependence, chewing tobacco, uncomplicated
CPT/HCPCS: 36415; 74177; 80053; 81001; 85025; J1885; J7030

== ENCOUNTER 2017-03-28 12:41 | Emergency (ER) | payer SELFPAY ==
[2017-03-28 12:58] VITALS: BP 161/87; TEMP 97; O2SAT 98
--- NOTE | 2017-03-28 13:08 | ED.PDOC ---
History of Present Illness - General Chief Complaint: ENT Problem Stated Complaint: RIGHT EAR PROBLEM X SEVERAL YEARS, WORSE LAST 3 MO Time Seen by Provider: 03/28/17 12:54 Source: patient, RN notes reviewed, Vital Signs reviewed Exam Limitations: no limitations - History of Present Illness Initial Comments: Patient comes in with c/o of a sore on his right ear. It does not bother him during the day but at night he sleeps on the right side and it is causing a lot of pain. He has had this for several years and has had it frozen of 4 times. A couple of months ago it started bleeding and has been painful since. Timing/Duration: constant - several years, worse recently Improving Factors: nothing Worsening Factors: other - sleeping on his R side Associated Symptoms: denies symptoms Allergies/Adverse Reactions: Allergies Codeine Allergy (Verified 03/28/17 12:53) Penicillins Allergy (Verified 03/28/17 12:53) Home Medications: Ambulatory Orders Aspirin [Aspirin Adult Low Dose] 81 mg PO DAILY 06/08/16 Empagliflozin-Linagliptin [Glyxambi 10-5 mg] 1 tab PO DAILY 06/08/16 Glipizide [Glipizide Xl] 2.5 mg PO DAILY 06/08/16 Hydrochlorothiazide 25 mg PO MOWETH@0900 06/08/16 Ipratropium/Albuterol Inhaler [Combivent Respimat 20-100 Mcg/Act] 120 puff INH PRN PRN 06/08/16 Lisinopril 10 mg PO DAILY 06/08/16 amLODIPine BESYLATE [Norvasc] 5 mg PO DAILY 06/08/16 Fluticasone Furoate-Vilanterol [Breo Ellipta 100-25 Mcg/INH] 1 inh IN DAILY #30 inh 07/15/16 Metoprolol Tartrate [Lopressor] 25 mg PO BIDFD #60 tab 07/15/16 guaiFENesin ER TAB [Mucinex Tab] 600 mg PO BID #60 tab 07/15/16 Furosemide [Lasix] 20 mg PO DAILY #33 tab 08/06/16 Potassium Chloride Tab [K-Dur] 20 meq PO DAILY #30 tab 08/06/16 Meclizine HCl 25 mg PO Q4H PRN #100 tab 08/26/16 Doxycycline Hyclate 100 mg PO BID #14 tab 12/28/16 Azithromycin Tab [Zithromax Tab] 250 mg PO QD #4 tab 01/06/17 methylPREDNISolone TAB [Medrol Tab] 4 mg PO DAILY #1 tab 01/06/17 Tramadol HCl 50 mg PO Q6HR PRN #15 tab 01/30/17 Review of Systems - Review of Systems Constitutional: States: no symptoms reported EENTM: States: ear pain. Denies: ear discharge Respiratory: States: no symptoms reported Cardiology: States: no symptoms reported Skin: States: see HPI, lesions Neurological: States: no symptoms reported All other Systems: No Change from Baseline Past Medical History (General) - Patient Medical History Hx Seizures: No Hx Stroke: No Hx Dementia: No Hx Asthma: No Hx of COPD: No Hx Cardiac Disorders: Yes Hx Congestive Heart Failure: No Hx Pacemaker: No Hx Hypertension: Yes Hx Thyroid Disease: No Hx Diabetes: Yes Hx Gastroesophageal Reflux: Yes Hx Renal Disease: No Hx Cancer: No Hx of HIV: No Hx Hepatitis C: No Hx MRSA: No - Vaccination History Hx Tetanus, Diphtheria Vaccination: Yes Hx Influenza Vaccination: Yes Hx Pneumococcal Vaccination: Yes Immunizations Up to Date: Yes - Social History Hx Tobacco Use: No Hx Chewing Tobacco Use: No Hx Alcohol Use: No Hx Substance Use: No Hx Substance Use Treatment: No Hx Depression: No Feels Threatened In Home Enviroment: No Feels Threatened In a Relationship: No Hx Physical Abuse: No Hx Emotional Abuse: No Hx Suspected Abuse: No - Female History Patient : No Family Medical History - Family History Mother Living Status: Hx Cardiac Disease: Yes - brother Hx Family Diabetes: Yes - mom Brother Family History: Unknown Name: Eliezer Braden Age (years): 60 Living Status: Still Living Hx Family Asthma: No Hx Family Congestive Heart Failure: No Hx Family Hypertension: Yes Hx Family Stroke: No Hx Cardiac Disease: No Hx Family Diabetes: Yes Hx Family Cancer: No Physical Exam - Physical Exam General Appearance: Alert, Comfortable, No apparent distress, Well Developed, Well Groomed, Well Hydrated, Well Nourished Ears, Nose, Throat: hearing grossly normal, normal ENT inspection Respiratory: no respiratory distress Neurologic: alert, normal mood/affect, oriented x 3 Skin Exam: normal color - except for a rough, light brown, irregular, thickened lesion just anterior to pinna of the right ear. Tender to touch Comments: Vital Signs 03/28/17 12:53 Temperature 97 F L Pulse Rate [ 80 Left Superficial Temporal] Respiratory 20 Rate Blood Pressure 161/87 [Left Arm] O2 Sat by Pulse 98 Oximetry Departure - Departure Clinical Impression: Seborrheic keratoses, inflamed Time of Disposition: 13:16 Disposition: Discharge to Home or Self Care Condition: Good Departure Forms: ED Discharge - Pt. Copy, Patient Portal Self Enrollment Instructions: Seborrheic Keratosis Diet: resume usual diet Activity: increase activity as tolerated Referrals: Sandra Ho FNP [Primary Care Provider] - 1-5 Days Home Medications: Ambulatory Orders Aspirin [Aspirin Adult Low Dose] 81 mg PO DAILY 06/08/16 Empagliflozin-Linagliptin [Glyxambi 10-5 mg] 1 tab PO DAILY 06/08/16 Glipizide [Glipizide Xl] 2.5 mg PO DAILY 06/08/16 Hydrochlorothiazide 25 mg PO MOWETH@0900 06/08/16 Ipratropium/Albuterol Inhaler [Combivent Respimat 20-100 Mcg/Act] 120 puff INH PRN PRN 06/08/16 Lisinopril 10 mg PO DAILY 06/08/16 amLODIPine BESYLATE [Norvasc] 5 mg PO DAILY 06/08/16 Fluticasone Furoate-Vilanterol [Breo Ellipta 100-25 Mcg/INH] 1 inh IN DAILY #30 inh 07/15/16 Metoprolol Tartrate [Lopressor] 25 mg PO BIDFD #60 tab 07/15/16 guaiFENesin ER TAB [Mucinex Tab] 600 mg PO BID #60 tab 07/15/16 Furosemide [Lasix] 20 mg PO DAILY #33 tab 08/06/16 Potassium Chloride Tab [K-Dur] 20 meq PO DAILY #30 tab 08/06/16 Meclizine HCl 25 mg PO Q4H PRN #100 tab 08/26/16 Doxycycline Hyclate 100 mg PO BID #14 tab 12/28/16 Azithromycin Tab [Zithromax Tab] 250 mg PO QD #4 tab 01/06/17 methylPREDNISolone TAB [Medrol Tab] 4 mg PO DAILY #1 tab 01/06/17 Tramadol HCl 50 mg PO Q6HR PRN #15 tab 01/30/17
== END 2017-03-28 13:23 | disposition home or self-care (01) ==
LOC: ER 12:41
DX: L82.0 Inflamed seborrheic keratosis (principal); I10 Essential (primary) hypertension; E11.9 Type 2 diabetes mellitus without complications; K21.9 Gastro-esophageal reflux disease without esophagitis; Z79.899 Other long term (current) drug therapy; Z79.82 Long term (current) use of aspirin; Z88.6 Allergy status to analgesic agent; Z88.0 Allergy status to penicillin

== ENCOUNTER → 2017-03-29 | Outpatient (CLI) | payer SELFPAY | END | disposition home or self-care (01) | LOC: YCFC.O 09:55 | PROVIDERS: ATTEND Nurse Practitioner Family | DX: J44.9 Chronic obstructive pulmonary disease, unspecified (principal); E11.9 Type 2 diabetes mellitus without complications; I10 Essential (primary) hypertension ==

== ENCOUNTER 2017-05-22 17:52 | Emergency (ER) | payer SELFPAY ==
[2017-05-22] MEDS ORDERED: ACETAMINOPHEN 500 MG TAB PO ONE (18:12)
--- NOTE | 2017-05-22 18:15 | ED.PDOC ---
History of Present Illness - General Chief Complaint: General Stated Complaint: hurt all over Time Seen by Provider: 05/22/17 18:04 Source: patient, RN notes reviewed, Vital Signs reviewed Exam Limitations: no limitations - History of Present Illness Initial Comments: Patient comes in with c/o generalized body aches and chills that started this morning. + mild HERNANDEZ. Denies earache, sore throat, cough, upset stomach, cuts or sores. Severity: moderate Improving Factors: nothing Associated Symptoms: fever/chills, headaches, malaise Allergies/Adverse Reactions: Allergies Codeine Allergy (Verified 05/22/17 18:02) Penicillins Allergy (Verified 05/22/17 18:02) Home Medications: Ambulatory Orders Aspirin [Aspirin Adult Low Dose] 81 mg PO DAILY 06/08/16 Glipizide [Glipizide Xl] 2.5 mg PO BID 06/08/16 Lisinopril 10 mg PO DAILY 06/08/16 amLODIPine BESYLATE [Norvasc] 5 mg PO DAILY 06/08/16 Review of Systems - Review of Systems Constitutional: States: chills, malaise EENTM: Denies: ear pain, nose congestion, throat pain Respiratory: Denies: cough, short of breath Cardiology: States: no symptoms reported Gastrointestinal/Abdominal: States: diarrhea - diarrhea 4 days ago. Denies: abdominal pain, nausea, vomiting Musculoskeletal: States: joint pain - generalized, muscle pain - generalized Skin: States: no symptoms reported Neurological: States: headache All other Systems: No Change from Baseline Past Medical History (General) - Patient Medical History Hx Seizures: No Hx Stroke: No Hx Dementia: No Hx Asthma: No Hx of COPD: No Hx Cardiac Disorders: Yes Hx Congestive Heart Failure: No Hx Pacemaker: No Hx Hypertension: Yes Hx Thyroid Disease: No Hx Diabetes: Yes Hx Gastroesophageal Reflux: Yes Hx Renal Disease: No Hx Cancer: No Hx of HIV: No Hx Hepatitis C: No Hx MRSA: No - Vaccination History Hx Tetanus, Diphtheria Vaccination: Yes Hx Influenza Vaccination: Yes Hx Pneumococcal Vaccination: Yes - Social History Hx Tobacco Use: No Hx Chewing Tobacco Use: No Hx Alcohol Use: No Hx Substance Use: No Hx Substance Use Treatment: No Hx Depression: No Hx Physical Abuse: No Hx Emotional Abuse: No Hx Suspected Abuse: No - Female History Patient : No Family Medical History - Family History Mother Living Status: Hx Cardiac Disease: Yes - brother Hx Family Diabetes: Yes - mom Brother Family History: Unknown Name: Eliezer Braden Age (years): 60 Living Status: Still Living Hx Family Asthma: No Hx Family Congestive Heart Failure: No Hx Family Hypertension: Yes Hx Family Stroke: No Hx Cardiac Disease: No Hx Family Diabetes: Yes Hx Family Cancer: No Physical Exam - Physical Exam General Appearance: Alert, Comfortable, No apparent distress, Well Developed, Well Groomed, Well Hydrated, Well Nourished Ears, Nose, Throat: hearing grossly normal, normal ENT inspection, normal pharynx Neck: supple, normal inspection Respiratory: lungs clear, normal breath sounds, no respiratory distress, no accessory muscle use Cardiovascular/Chest: regular rate, rhythm, no gallop, no murmur Gastrointestinal/Abdominal: normal bowel sounds, non tender, soft, no organomegaly Extremity: normal inspection Neurologic: alert, normal mood/affect, oriented x 3 Skin Exam: normal color, warm/dry Progress - Progress Progress: 05/22/17 19:43 No obvious source of infection. Most likely viral. Will treat conservatively with Tylenol and Ibuprofen. Follow up with PCP in 3-5 days. - Results/Orders Results/Orders: Laboratory Tests 05/22/17 05/22/17 05/22/17 18:00 18:40 18:45 WBC 4.7 L RBC 4.32 L Hgb 13.8 L Hct 40.6 L MCV 94.1 H MCH 31.9 H MCHC 34.0 RDW 13.1 Plt Count 114 L MPV 7.1 L Absolute Neuts (auto) 3.60 Absolute Lymphs (auto) 0.60 L Absolute Monos (auto) 0.40 Absolute Eos (auto) 0.10 Absolute Basos (auto) 0.00 Neutrophils % 76.8 Lymphocytes % 12.2 L Monocytes % 8.6 Eosinophils % 1.8 Basophils % 0.6 Sodium Potassium Chloride Carbon Dioxide Anion Gap BUN Creatinine BUN/Creatinine Ratio Random Glucose Serum Osmolality Calcium Total Bilirubin AST ALT Alkaline Phosphatase Serum Total Protein Albumin Globulin Albumin/Globulin Ratio Urine Color Yellow Urine Appearance Clear Urine pH 6.0 Ur Specific Sevier 1.025 Urine Protein Negative Urine Glucose (UA) Negative Urine Ketones Negative Urine Blood Negative Urine Nitrite Negative Urine Bilirubin Negative Urine Urobilinogen 1.0 Ur Leukocyte Esterase Negative Urine RBC 0-1 Urine WBC 0-1 Ur Epithelial Cells 0 Urine Bacteria Rare Urine Mucus Trace Group A Strep DNA Negative 05/22/17 18:45 WBC RBC Hgb Hct MCV MCH MCHC RDW Plt Count MPV Absolute Neuts (auto) Absolute Lymphs (auto) Absolute Monos (auto) Absolute Eos (auto) Absolute Basos (auto) Neutrophils % Lymphocytes % Monocytes % Eosinophils % Basophils % Sodium 133 L Potassium 3.9 Chloride 100 L Carbon Dioxide 26 Anion Gap 10.9 L BUN 11 Creatinine 0.76 BUN/Creatinine Ratio 14.5 Random Glucose 135 H Serum Osmolality 267.8 L Calcium 8.9 Total Bilirubin 0.3 AST 22 ALT 32 Alkaline Phosphatase 69 Serum Total Protein 7.1 Albumin 4.3 Globulin 2.8 Albumin/Globulin Ratio 1.5 Urine Color Urine Appearance Urine pH Ur Specific Sevier Urine Protein Urine Glucose (UA) Urine Ketones Urine Blood Urine Nitrite Urine Bilirubin Urine Urobilinogen Ur Leukocyte Esterase Urine RBC Urine WBC Ur Epithelial Cells Urine Bacteria Urine Mucus Group A Strep DNA Influenza A&B: Negative - EKG/XRAY/CT XRAY: chest - No change, no infiltrate per Radiologist Departure - Departure Clinical Impression: Viral illness Time of Disposition: 19:45 Disposition: Discharge to Home or Self Care Condition: Fair Departure Forms: ED Discharge - Pt. Copy, Patient Portal Self Enrollment Instructions: DI for Viral Syndrome Diet: resume usual diet Activity: increase activity as tolerated Referrals: Sandra Ho NP [Primary Care Provider] - 1-5 Days Home Medications: Ambulatory Orders Aspirin [Aspirin Adult Low Dose] 81 mg PO DAILY 06/08/16 Glipizide [Glipizide Xl] 2.5 mg PO BID 06/08/16 Lisinopril 10 mg PO DAILY 06/08/16 amLODIPine BESYLATE [Norvasc] 5 mg PO DAILY 06/08/16 Additional Instructions: Alternate Tylenol and Ibuprofen every 3-4 hours as needed for fever and body aches.
--- NOTE | 2017-05-22 19:34 | RAD ---
EXAM: Frontal and lateral chest X-ray's obtained. CLINICAL INDICATION: Fever COMPARISON: Chest x-ray from 01/25/2017 FINDINGS: There is similar hyperinflation of the lungs and relative paucity of lung markings in bilateral upper lobes. There is no focal airspace consolidation, pleural effusion, or pneumothorax. There is stable enlargement of the cardiac silhouette. There is no overt pulmonary vascular congestion. There are stable hypertrophic degenerative changes of the spine. IMPRESSION: Similar findings suggesting emphysematous change. No focal airspace consolidation or overt pulmonary vascular congestion. Electronically signed by: Iraj Conway MD 05/22/2017 7:32 PM CDT Workstation: [id number]
[2017-05-22 20:00] VITALS: BP 146/82; TEMP 100.5; O2SAT 95
== END 2017-05-22 20:00 | disposition home or self-care (01) ==
LOC: ER 17:52
DX: B34.9 Viral infection, unspecified (principal); I10 Essential (primary) hypertension; E11.9 Type 2 diabetes mellitus without complications; K21.9 Gastro-esophageal reflux disease without esophagitis; Z88.6 Allergy status to analgesic agent; Z88.0 Allergy status to penicillin; Z79.899 Other long term (current) drug therapy

== ENCOUNTER 2017-07-03 08:02 | Emergency (ER) | payer SELFPAY ==
[2017-07-03 08:15] VITALS: O2SAT 94
--- NOTE | 2017-07-03 08:54 | RAD ---
Procedure: XR CHEST 2 VIEWS Exam Date: 07/03/2017 8:31 AM [facility] Ordering Provider: Devin Fulton Clinical Indication: cough, sore throat copd Comparison: None Findings: There is left upper lobe discoid atelectasis. No pleural effusion or pneumothorax. Cardiac silhouette is normal in size. Impression: Left upper lobe discoid atelectasis. Otherwise, no acute pulmonary process.. Electronically signed by: Tracey Lafleur MD 07/03/2017 8:53 AM [facility]
[2017-07-03] MEDS ORDERED: AZITHROMYCIN 250 MG TAB PO ONE (09:04)
[2017-07-03] MEDS ORDERED: predniSONE 20 MG TAB PO ONE (09:04)
[2017-07-03] MEDS ORDERED: IBUPROFEN 200 MG TAB PO ONE (09:10)
--- NOTE | 2017-07-03 10:00 | ED.PDOC ---
History of Present Illness - General Chief Complaint: General Stated Complaint: Fever, chills, bodyaches, frequent urination Time Seen by Provider: 07/03/17 08:07 Source: patient Exam Limitations: no limitations - History of Present Illness Initial Comments: the patient is a 61-year-old male with a history of pneumonia and COPD presenting to the emergency room with a sore throat and a cough as well as generalized body aches for the last 24 hours. Mild runny nose. No real shortness of breath. He has not been doing his nebulizer frequently treatments frequently. No productive sputum. No chest pain. No real shortness of breath. Timing/Duration: 24 hours Severity: moderate Improving Factors: nothing Worsening Factors: nothing Associated Symptoms: cough, fever/chills, malaise Allergies/Adverse Reactions: Allergies Codeine Allergy (Verified 05/22/17 18:02) Penicillins Allergy (Verified 05/22/17 18:02) Home Medications: Ambulatory Orders Aspirin [Aspirin Adult Low Dose] 81 mg PO DAILY 06/08/16 Glipizide [Glipizide Xl] 2.5 mg PO BID 06/08/16 Lisinopril 10 mg PO DAILY 06/08/16 amLODIPine BESYLATE [Norvasc] 5 mg PO DAILY 06/08/16 Azithromycin 500 mg PO DAILY #5 tab 07/03/17 predniSONE [Prednisone] 20 mg PO DAILY #3 tab 07/03/17 Review of Systems - Review of Systems Constitutional: States: fever, malaise EENTM: States: nose congestion, throat pain Respiratory: States: cough Cardiology: States: no symptoms reported Gastrointestinal/Abdominal: States: no symptoms reported Genitourinary: States: no symptoms reported Musculoskeletal: States: no symptoms reported Skin: States: no symptoms reported Neurological: States: no symptoms reported Endocrine: States: no symptoms reported All other Systems: No Change from Baseline Past Medical History (General) - Patient Medical History Hx Seizures: No Hx Stroke: No Hx Dementia: No Hx Asthma: No Hx of COPD: No Hx Cardiac Disorders: Yes Hx Congestive Heart Failure: No Hx Pacemaker: No Hx Hypertension: Yes Hx Thyroid Disease: No Hx Diabetes: Yes Hx Gastroesophageal Reflux: Yes Hx Renal Disease: No Hx Cancer: No Hx of HIV: No Hx Hepatitis C: No Hx MRSA: No Surgical History: other - Vaccination History Hx Tetanus, Diphtheria Vaccination: Yes Hx Influenza Vaccination: No Hx Pneumococcal Vaccination: Yes - 2016 - Social History Hx Tobacco Use: No Hx Chewing Tobacco Use: No Hx Alcohol Use: No Hx Substance Use: No Hx Substance Use Treatment: No Hx Depression: No Hx Physical Abuse: No Hx Emotional Abuse: No Hx Suspected Abuse: No - Female History Patient : No Family Medical History - Family History Mother Living Status: Hx Cardiac Disease: Yes - brother Hx Family Diabetes: Yes - mom Brother Family History: Unknown Name: Eliezer Braden Age (years): 60 Living Status: Still Living Hx Family Asthma: No Hx Family Congestive Heart Failure: No Hx Family Hypertension: Yes Hx Family Stroke: No Hx Cardiac Disease: No Hx Family Diabetes: Yes Hx Family Cancer: No Physical Exam - Physical Exam General Appearance: Alert, Comfortable, No apparent distress Eye Exam: bilateral normal Ears, Nose, Throat: nasal congestion, pharyngeal erythema Neck: full range of motion, supple Respiratory: no respiratory distress, no accessory muscle use, other - mild wheezes to the right upper lobe Cardiovascular/Chest: normal peripheral pulses, no edema, other - regular rate Peripheral Pulses: radial,right: 2+, radial,left: 2+, dorsalis pedis,right: 2+, dorsalis pedis,left: 2+ Gastrointestinal/Abdominal: non tender - bese, soft Rectal Exam: deferred Back Exam: no vertebral tenderness Extremity: non-tender, no pedal edema, no calf tenderness, normal capillary refill Neurologic: mooner II-XII nml as tested, alert, normal mood/affect, oriented x 3 Skin Exam: normal color Comments: Vital Signs - 24 hr 07/03/17 08:14 Temperature 98.8 F Pulse Rate [ 76 Left Radial] Respiratory 22 Rate Blood Pressure 139/71 [Left Arm] O2 Sat by Pulse 94 L Oximetry Progress - Progress Progress: 07/03/17 10:00 the patient is a 61-year-old male with a history of COPD presenting with a report of fever, sore throat and cough. There is no evidence of any overt pneumonia. The patient has tested negative for flu and strep. Given his history of COPD the patient is going to be placed on prednisone 20 mg daily for the next 3 days as well as azithromycin 500 mg daily for the next 5 days. He needs to increase his breathing treatments to at least twice daily for the next week. He should follow-up with his primary care doctor in the earlier part of this coming week. ER warnings were given for any significant worsening. Motrin and Tylenol can be used for any body aches and fevers. - Results/Orders Results/Orders: rapid strep and rapid flu were negative. Chest x-ray shows some discoid atelectasis in the right upper lung Departure - Departure Clinical Impression: COPD with acute exacerbation Pharyngitis Qualifiers: Pharyngitis/tonsillitis etiology: unspecified etiology Qualified Code(s): J02.9 - Acute pharyngitis, unspecified Disposition: Discharge to Home or Self Care Condition: Fair Departure Forms: ED Discharge - Pt. Copy, Patient Portal Self Enrollment Instructions: DI for Chronic Obstructive Pulmonary Disease Diet: diabetic diet Activity: increase activity as tolerated Referrals: Sandra Ho NP [Primary Care Provider] - 1-2 Weeks Prescriptions: Azithromycin 500 mg PO DAILY #5 tab predniSONE [Prednisone] 20 mg PO DAILY #3 tab Home Medications: Ambulatory Orders Aspirin [Aspirin Adult Low Dose] 81 mg PO DAILY 06/08/16 Glipizide [Glipizide Xl] 2.5 mg PO BID 06/08/16 Lisinopril 10 mg PO DAILY 06/08/16 amLODIPine BESYLATE [Norvasc] 5 mg PO DAILY 06/08/16 Azithromycin 500 mg PO DAILY #5 tab 07/03/17 predniSONE [Prednisone] 20 mg PO DAILY #3 tab 07/03/17 Additional Instructions: the patient is a 61-year-old male with a history of COPD presenting with a report of fever, sore throat and cough. There is no evidence of any overt pneumonia. The patient has tested negative for flu and strep. Given his history of COPD the patient is going to be placed on prednisone 20 mg daily for the next 3 days as well as azithromycin 500 mg daily for the next 5 days. He needs to increase his breathing treatments to at least twice daily for the next week. He should follow-up with his primary care doctor in the earlier part of this coming week. ER warnings were given for any significant worsening. Motrin and Tylenol can be used for any body aches and fevers.
[2017-07-03 10:16] VITALS: BP 124/76; TEMP 98
== END 2017-07-03 10:12 | disposition home or self-care (01) ==
LOC: ER 08:02
DX: J44.1 Chronic obstructive pulmonary disease with (acute) exacerbation (principal); J02.9 Acute pharyngitis, unspecified; E11.9 Type 2 diabetes mellitus without complications; I10 Essential (primary) hypertension; K21.9 Gastro-esophageal reflux disease without esophagitis; Z79.82 Long term (current) use of aspirin; Z79.899 Other long term (current) drug therapy; Z88.6 Allergy status to analgesic agent; Z88.0 Allergy status to penicillin
CPT/HCPCS: 71020; 82948; 87070; 87502; 87651; J7512; Q0144

== ENCOUNTER 2017-07-06 02:26 | Emergency (ER) | payer SELFPAY ==
[2017-07-06 02:45] VITALS: TEMP 97
[2017-07-06] MEDS ORDERED: SODIUM CHLORIDE 0.9% (FLUSH) 10 ML SYG IV PRN (02:52)
[2017-07-06] MEDS ORDERED: IPRATROPIUM/ALBUTEROL 3 ML VIAL INH ONE (02:52)
[2017-07-06] MEDS ORDERED: IPRATROPIUM/ALBUTEROL 3 ML VIAL NEB ONE ×3 (02:55→03:25)
[2017-07-06] MEDS ORDERED: methylPREDNISolone SODIUM SUC 125 MG/2 ML VIAL IV ONE (02:57)
--- NOTE | 2017-07-06 03:05 | ED.PDOC ---
History of Present Illness - General Chief Complaint: Respiratory Problem Stated Complaint: short of breath Time Seen by Provider: 07/06/17 02:43 Source: patient Exam Limitations: no limitations - History of Present Illness Initial Comments: 3 D AGO PT STARTED HAVING SOB AND WAS SEEN IN ER AT THAT TIME. GIVEN 3D STEROIDS AND 5 D AZITHROMYCIN FOR COPD EXACERBATION. IT STARTED IMPROVING BUT HAS WORSENED AGAIN. DENIES SMOKING HX OTHER THAN CIGARETTES A KID AND CHEWS ON A CIGAR NOW. Timing/Duration: constant Severity: severe Activities at Onset: none Possible Cause: chronic episodes Improving Factors: medication Associated Symptoms: denies symptoms Respiratory Risk Factors: no cause identified Allergies/Adverse Reactions: Allergies Codeine Allergy (Verified 05/22/17 18:02) Penicillins Allergy (Verified 05/22/17 18:02) Home Medications: Ambulatory Orders Aspirin [Aspirin Adult Low Dose] 81 mg PO DAILY 06/08/16 Glipizide [Glipizide Xl] 2.5 mg PO BID 06/08/16 Lisinopril 10 mg PO DAILY 06/08/16 amLODIPine BESYLATE [Norvasc] 5 mg PO DAILY 06/08/16 Azithromycin 500 mg PO DAILY #5 tab 07/03/17 Albuterol Sulfate Nebs [Proventil Nebs] 2.5 mg INH 07/06/17 Fluticasone Furoate-Vilanterol [Breo Ellipta 200-25 Mcg/INH] 1 inh IN 07/06/17 Levofloxacin [Levaquin] 750 mg PO DAILY #5 tablet 07/06/17 Methylprednisolone [Medrol Dose Siva] 4 mg PO DAILY #1 tab 07/06/17 Mometasone Furoate-Formoterol [Dulera 200-5 Mcg/Act] 1 aer IN 07/06/17 Review of Systems - Review of Systems Constitutional: Denies: chills, diaphoresis, fever EENTM: Denies: ear pain, nose congestion Respiratory: States: cough, short of breath, wheezing Cardiology: Denies: chest pain, palpitations Gastrointestinal/Abdominal: Denies: abdominal pain, constipation Genitourinary: States: no symptoms reported Musculoskeletal: States: no symptoms reported Skin: States: no symptoms reported Neurological: Denies: tingling, tremors Endocrine: States: no symptoms reported Hematologic/Lymphatic: States: no symptoms reported All other Systems: Reviewed and Negative Past Medical History (General) - Patient Medical History Hx Seizures: No Hx Stroke: No Hx Dementia: No Hx Asthma: No Hx of COPD: Yes Hx Cardiac Disorders: Yes Hx Congestive Heart Failure: No Hx Pacemaker: No Hx Hypertension: Yes Hx Thyroid Disease: No Hx Diabetes: Yes Hx Gastroesophageal Reflux: Yes Hx Renal Disease: No Hx Cancer: No Hx of HIV: No Hx Hepatitis C: No Hx MRSA: No - Vaccination History Hx Tetanus, Diphtheria Vaccination: Yes Hx Influenza Vaccination: No Hx Pneumococcal Vaccination: Yes - 2016 - Social History Hx Tobacco Use: No Hx Chewing Tobacco Use: No Hx Alcohol Use: No Hx Substance Use: No Hx Substance Use Treatment: No Hx Depression: No Hx Physical Abuse: No Hx Emotional Abuse: No Hx Suspected Abuse: No - Female History Patient : No Family Medical History - Family History Mother Living Status: Hx Cardiac Disease: Yes - brother Hx Family Diabetes: Yes - mom Brother Family History: Unknown Name: Eliezer Braden Age (years): 60 Living Status: Still Living Hx Family Asthma: No Hx Family Congestive Heart Failure: No Hx Family Hypertension: Yes Hx Family Stroke: No Hx Cardiac Disease: No Hx Family Diabetes: Yes Hx Family Cancer: No Physical Exam - Physical Exam General Appearance: Alert, Obese Eyes, Ears, Nose, Throat Exam: PERRL/EOMI, normal ENT inspection, TMs normal, pharynx normal Neck: non-tender, full range of motion, supple Respiratory: chest non-tender, decreased breath sounds, wheezing - SEVERE INSPIR AND EXPIR WHEEZE IN ALL LUNG JARVIS. Cardiovascular/Chest: normal peripheral pulses, regular rate, rhythm, no edema, no gallop, no JVD, no murmur Peripheral Pulses: radial,right: 2+, radial,left: 2+ Gastrointestinal/Abdominal: normal bowel sounds, non tender, soft Extremity: normal range of motion, normal inspection Neurologic: no motor/sensory deficits, alert, normal mood/affect Skin Exam: normal color, cyanosis Lymphatic: no adenopathy Progress - Results/Orders Results/Orders: WHEEZE HAS RESOLVED W/ DUONEBS X 3 TX. PT BREATHING BETTER. CXR SHOWS LLL PNE, THUS I WILL RX LEVQUIN. I INSTRUCTED PT TO STOP AZITHROMYCIN. COPD EXAC - RX MEDROL DOSE PACK. INSTURCTED PT TO CONTINUE HIS HOME NEB TX. OTHER TESTS NEG OR UNREMARKABLE - CBC, CMP, EKG, BNP, TROP. 02 SATS 96% ON RA. SAFE FOR DC TO HOME WITH CLOSE F/U WITH PCP THIS WEEK. Departure - Departure Clinical Impression: Pneumonia involving left lung, COPD exacerbation, Dyspnea Disposition: Discharge to Home or Self Care Condition: Good Departure Forms: ED Discharge - Pt. Copy, Patient Portal Self Enrollment Instructions: DI for Pneumonia -- Adult Diet: resume usual diet Activity: increase activity as tolerated Referrals: Sandra Ho, [employer] [Primary Care Provider] - 1-5 Days Prescriptions: Levofloxacin [Levaquin] 750 mg PO DAILY #5 tablet Methylprednisolone [Medrol Dose Siva] 4 mg PO DAILY #1 tab Home Medications: Ambulatory Orders Aspirin [Aspirin Adult Low Dose] 81 mg PO DAILY 06/08/16 Glipizide [Glipizide Xl] 2.5 mg PO BID 06/08/16 Lisinopril 10 mg PO DAILY 06/08/16 amLODIPine BESYLATE [Norvasc] 5 mg PO DAILY 06/08/16 Azithromycin 500 mg PO DAILY #5 tab 07/03/17 Albuterol Sulfate Nebs [Proventil Nebs] 2.5 mg INH 07/06/17 Fluticasone Furoate-Vilanterol [Breo Ellipta 200-25 Mcg/INH] 1 inh IN 07/06/17 Levofloxacin [Levaquin] 750 mg PO DAILY #5 tablet 07/06/17 Methylprednisolone [Medrol Dose Siva] 4 mg PO DAILY #1 tab 07/06/17 Mometasone Furoate-Formoterol [Dulera 200-5 Mcg/Act] 1 aer IN 07/06/17 Additional Instructions: Stop the azithromycin antibiotic and start the levaquin instead.
--- NOTE | 2017-07-06 03:30 | RAD ---
EXAM DESCRIPTION: Chest,1 View CLINICAL HISTORY: SOB, h/o COPD COMPARISON: 05/03/2017 FINDINGS: Single frontal view of the chest. Cardiomegaly. Pulmonary vascular congestion. Left basilar opacity. No pneumothorax. No acute osseous abnormalities. Upper abdominal soft tissues are unremarkable. IMPRESSION: 1. Interval development of left basilar opacity and likely small left pleural effusion. Underlying opacity could be related to acute pneumonic consolidation or atelectasis. 2. Cardiomegaly with pulmonary vascular congestion. Electronically signed by: Kj Rider 07/06/2017 3:29 AM [facility]
[2017-07-06] MEDS ORDERED: levoFLOXacin 500 MG TAB ONE (04:30)
[2017-07-06] MEDS ORDERED: levoFLOXacin 500 MG TAB PO ONE (04:30)
[2017-07-06 04:56] VITALS: BP 167/89; O2SAT 97
== END 2017-07-06 04:55 | disposition home or self-care (01) ==
LOC: ER 02:26
DX: J18.9 Pneumonia, unspecified organism (principal); J44.1 Chronic obstructive pulmonary disease with (acute) exacerbation; I10 Essential (primary) hypertension; E11.9 Type 2 diabetes mellitus without complications; K21.9 Gastro-esophageal reflux disease without esophagitis; Z79.899 Other long term (current) drug therapy; Z79.82 Long term (current) use of aspirin; Z88.0 Allergy status to penicillin; Z88.6 Allergy status to analgesic agent; F17.290 Nicotine dependence, other tobacco product, uncomplicated
CPT/HCPCS: 36415; 71010; 80053; 83880; 84484; 85025; 93005; J2930; J7620

== ENCOUNTER 2018-02-23 10:11 | Emergency (ER) | payer MEDICARE, MEDICAID ==
[2018-02-23 10:33] VITALS: TEMP 99
--- NOTE | 2018-02-23 10:35 | ED.PDOC ---
History of Present Illness - General Chief Complaint: ENT Problem Stated Complaint: dry throat,rash Time Seen by Provider: 02/23/18 10:22 Source: patient Exam Limitations: no limitations - History of Present Illness Initial Comments: RAHS TO THE LEFT ANTECUBITAL AREA AND SORE THROAT. LOW GRADE FEVER NOTED. Timing/Duration: abrupt Improving Factors: nothing Worsening Factors: nothing Associated Symptoms: denies symptoms Allergies/Adverse Reactions: Allergies Codeine Allergy (Verified 05/22/17 18:02) Penicillins Allergy (Verified 05/22/17 18:02) Home Medications: Ambulatory Orders Aspirin [Aspirin Adult Low Dose] 81 mg PO DAILY 06/08/16 Glipizide [Glipizide Xl] 2.5 mg PO BID 06/08/16 Albuterol Sulfate Nebs [Proventil Nebs] 2.5 mg INH PRN 07/06/17 Mometasone Furoate-Formoterol [Dulera 200-5 Mcg/Act] 1 aer IN DAILY 07/06/17 Amlodipine Besylate 5 mg PO DAILY 02/23/18 Budesonide-Formoterol Fumarate [Symbicort] 1 aer IN DAILY 02/23/18 Fluoxetine HCl 20 mg PO DAILY 02/23/18 Lisinopril & Hydrochlorothiazi [Lisinopril/Hctz 20-25 mg] 1 tab PO DAILY Ckesd-7-Uiax Ethyl Esters [Whddg-5-Qnei Ethyl Esters 1 gm] 1 cap PO DAILY Potassium Chloride [Micro-K] 20 meq PO DAILY 02/23/18 Propranolol HCl [Propranolol HCl ER] 60 mg PO DAILY 02/23/18 Tamsulosin [Flomax] 0.4 mg PO QD 02/23/18 Triamcinolone 0.1% Oint [Kenalog 0.1% Ointment] 15 gm TOP BID #1 tube 02/23/18 Review of Systems - Review of Systems Constitutional: States: no symptoms reported EENTM: States: throat pain, mouth swelling Respiratory: States: no symptoms reported Cardiology: States: no symptoms reported Gastrointestinal/Abdominal: States: no symptoms reported Genitourinary: States: no symptoms reported Musculoskeletal: States: no symptoms reported Skin: States: rash Neurological: States: no symptoms reported Endocrine: States: no symptoms reported Hematologic/Lymphatic: States: no symptoms reported Past Medical History (General) - Patient Medical History Hx Seizures: No Hx Stroke: No Hx Dementia: No Hx Asthma: No Hx of COPD: Yes Hx Cardiac Disorders: Yes Hx Congestive Heart Failure: No Hx Pacemaker: No Hx Hypertension: Yes Hx Thyroid Disease: No Hx Diabetes: Yes Hx Gastroesophageal Reflux: Yes Hx Renal Disease: No Hx Cancer: No Hx of HIV: No Hx Hepatitis C: No Hx MRSA: No - Vaccination History Hx Tetanus, Diphtheria Vaccination: Yes Hx Influenza Vaccination: No Hx Pneumococcal Vaccination: Yes - 2016 - Social History Hx Tobacco Use: No Hx Chewing Tobacco Use: No Hx Alcohol Use: No Hx Substance Use: No Hx Substance Use Treatment: No Hx Depression: No Hx Physical Abuse: No Hx Emotional Abuse: No Hx Suspected Abuse: No - Female History Patient : No Family Medical History - Family History Mother Living Status: Hx Cardiac Disease: Yes - brother Hx Family Diabetes: Yes - mom Brother Family History: Unknown Name: Eliezer Braden Age (years): 60 Living Status: Still Living Hx Family Asthma: No Hx Family Congestive Heart Failure: No Hx Family Hypertension: Yes Hx Family Stroke: No Hx Cardiac Disease: No Hx Family Diabetes: Yes Hx Family Cancer: No Physical Exam - Physical Exam General Appearance: Alert, No apparent distress Eye Exam: bilateral normal Nasal Exam: normal inspection Throat Exam: pharynx swelling Neck: non-tender, full range of motion, supple Cardiovascular/Respiratory: regular rate, rhythm, normal peripheral pulses Neurologic: meat boner II-XII nml as tested, alert, oriented x 3 Skin Exam: rash - TO THE LEFT ANTECUBITAL AREA, PAPULAR RASH Progress - Results/Orders Results/Orders: LABORATORY IS RESULTED, CBC, CMP AND RSS ARE WNL. RSS IS NEGATIVE. Departure - Departure Clinical Impression: Dermatitis Time of Disposition: 11:54 Disposition: Discharge to Home or Self Care Condition: Good Departure Forms: ED Discharge - Pt. Copy, Patient Portal Self Enrollment Instructions: DI for Ear Pain-Adult, Skin Rash Diet: resume usual diet Activity: increase activity as tolerated Referrals: Felipe Escudero MD [Primary Care Provider] - 1-2 Weeks Prescriptions: Triamcinolone 0.1% Oint [Kenalog 0.1% Ointment] 15 gm TOP BID #1 tube Home Medications: Ambulatory Orders Aspirin [Aspirin Adult Low Dose] 81 mg PO DAILY 06/08/16 Glipizide [Glipizide Xl] 2.5 mg PO BID 06/08/16 Albuterol Sulfate Nebs [Proventil Nebs] 2.5 mg INH PRN 07/06/17 Mometasone Furoate-Formoterol [Dulera 200-5 Mcg/Act] 1 aer IN DAILY 07/06/17 Amlodipine Besylate 5 mg PO DAILY 02/23/18 Budesonide-Formoterol Fumarate [Symbicort] 1 aer IN DAILY 02/23/18 Fluoxetine HCl 20 mg PO DAILY 02/23/18 Lisinopril & Hydrochlorothiazi [Lisinopril/Hctz 20-25 mg] 1 tab PO DAILY Ljupm-4-Vzqh Ethyl Esters [Imajb-5-Actd Ethyl Esters 1 gm] 1 cap PO DAILY Potassium Chloride [Micro-K] 20 meq PO DAILY 02/23/18 Propranolol HCl [Propranolol HCl ER] 60 mg PO DAILY 02/23/18 Tamsulosin [Flomax] 0.4 mg PO QD 02/23/18 Triamcinolone 0.1% Oint [Kenalog 0.1% Ointment] 15 gm TOP BID #1 tube 02/23/18
--- NOTE | 2018-02-23 11:28 | RAD ---
EXAM DESCRIPTION: Chest,1 View CLINICAL HISTORY: 62 years Male, sob COMPARISON: July 06, 2017 TECHNIQUE: AP portable chest. FINDINGS: Lungs are clear. No consolidation. Heart normal size. IMPRESSION: Normal. Electronically signed by: Marcos Ch MD 02/23/2018 11:26 AM CDT
[2018-02-23 11:46] VITALS: BP 100/61; O2SAT 93
== END 2018-02-23 12:05 | disposition home or self-care (01) ==
LOC: ER 10:11
DX: L30.9 Dermatitis, unspecified (principal); J44.9 Chronic obstructive pulmonary disease, unspecified; I10 Essential (primary) hypertension; E11.9 Type 2 diabetes mellitus without complications; K21.9 Gastro-esophageal reflux disease without esophagitis; Z79.899 Other long term (current) drug therapy; Z79.84 Long term (current) use of oral hypoglycemic drugs; Z79.82 Long term (current) use of aspirin; Z88.0 Allergy status to penicillin

== ENCOUNTER 2018-02-24 21:43 | Inpatient (IN) | payer MEDICARE, MEDICAID ==
[2018-02-24] MEDS ORDERED: IPRATROPIUM/ALBUTEROL 3 ML VIAL NEB ONE ×2 (22:01)
[2018-02-24] MEDS ORDERED: levoFLOXacin 500 MG TAB PO ONE (22:01)
--- NOTE | 2018-02-24 22:05 | ED.PDOC ---
History of Present Illness - General Chief Complaint: Respiratory Problem Stated Complaint: shortness of breath Time Seen by Provider: 02/24/18 22:01 Source: patient Exam Limitations: no limitations - History of Present Illness Initial Comments: patient comes in today for shortness of breath. 2 days ago patient states he started feeling sick with coughing and purulent sputum. He began having wheezing and some shortness of breath. Yesterday he was seen here and told there was nothing wrong but he has since continued to worsen. Patient is having more coughing with purulent sputum consistent within the past when he has had pneumonia. He does have COPD but has not had breathing treatments for about 6 months and up until yesterday had no symptoms. He denies any fever or chills. He has no weakness, nausea, or vomiting. He does have a history of diabetes and hypertension. Patient denies any history of heart failureor coronary artery disease. He has a severe reaction to penicillins and does not have a he has ever taken cephalosporins and does not recognize the names of Keflex or Rocephin. Timing/Duration: getting worse Possible Cause: chronic episodes Improving Factors: nothing Worsening Factors: movement Associated Symptoms: cough, shortness of breath, wheezing Respiratory Risk Factors: no cause identified Allergies/Adverse Reactions: Allergies Codeine Allergy (Verified 05/22/17 18:02) Penicillins Allergy (Verified 05/22/17 18:02) Home Medications: Ambulatory Orders Aspirin [Aspirin Adult Low Dose] 81 mg PO DAILY 06/08/16 Glipizide [Glipizide Xl] 2.5 mg PO BID 06/08/16 Albuterol Sulfate Nebs [Proventil Nebs] 2.5 mg INH PRN 07/06/17 Mometasone Furoate-Formoterol [Dulera 200-5 Mcg/Act] 1 aer IN DAILY 07/06/17 Amlodipine Besylate 5 mg PO DAILY 02/23/18 Budesonide-Formoterol Fumarate [Symbicort] 1 aer IN DAILY 02/23/18 Fluoxetine HCl 20 mg PO DAILY 02/23/18 Lisinopril & Hydrochlorothiazi [Lisinopril/Hctz 20-25 mg] 1 tab PO DAILY Eodjf-5-Qlbs Ethyl Esters [Hwisn-0-Lihz Ethyl Esters 1 gm] 1 cap PO DAILY Potassium Chloride [Micro-K] 20 meq PO DAILY 02/23/18 Propranolol HCl [Propranolol HCl ER] 60 mg PO DAILY 02/23/18 Tamsulosin [Flomax] 0.4 mg PO QD 02/23/18 Triamcinolone 0.1% Oint [Kenalog 0.1% Ointment] 15 gm TOP BID #1 tube 02/23/18 Review of Systems - Review of Systems Constitutional: States: no symptoms reported. Denies: chills, diaphoresis, fever, weakness EENTM: States: no symptoms reported. Denies: eye pain, ear pain, throat pain Respiratory: States: no symptoms reported, cough, short of breath, wheezing Cardiology: Denies: no symptoms reported, chest pain, edema, palpitations Gastrointestinal/Abdominal: States: no symptoms reported. Denies: abdominal pain, diarrhea, nausea, vomiting Genitourinary: States: no symptoms reported Musculoskeletal: States: no symptoms reported Skin: States: no symptoms reported Neurological: States: no symptoms reported Past Medical History (General) - Patient Medical History Hx Seizures: No Hx Stroke: No Hx Dementia: No Hx Asthma: No Hx of COPD: Yes Hx Cardiac Disorders: Yes Hx Congestive Heart Failure: No Hx Pacemaker: No Hx Hypertension: Yes Hx Thyroid Disease: No Hx Diabetes: Yes Hx Gastroesophageal Reflux: Yes Hx Renal Disease: No Hx Cancer: No Hx of HIV: No Hx Hepatitis C: No Hx MRSA: No - Vaccination History Hx Tetanus, Diphtheria Vaccination: Yes Hx Influenza Vaccination: No Hx Pneumococcal Vaccination: Yes - 2016 - Social History Hx Tobacco Use: No Hx Chewing Tobacco Use: No Hx Alcohol Use: No Hx Substance Use: No Hx Substance Use Treatment: No Hx Depression: No Hx Physical Abuse: No Hx Emotional Abuse: No Hx Suspected Abuse: No - Female History Patient : No Family Medical History - Family History Mother Living Status: Hx Cardiac Disease: Yes - brother Hx Family Diabetes: Yes - mom Brother Family History: Unknown Name: Eliezer Braden Age (years): 60 Living Status: Still Living Hx Family Asthma: No Hx Family Congestive Heart Failure: No Hx Family Hypertension: Yes Hx Family Stroke: No Hx Cardiac Disease: No Hx Family Diabetes: Yes Hx Family Cancer: No Physical Exam - Physical Exam General Appearance: Alert, Other - audible wheezing and sitting up on the side of bed. Appears upset Eye Exam: bilateral normal ENT Exam: normal ENT inspection, hearing grossly normal, TMs normal, pharynx normal Neck: non-tender, full range of motion, supple, normal inspection Respiratory: chest non-tender, decreased breath sounds, crackles - at bilateral bases, wheezing - in all lung granados Cardiovascular/Chest: normal peripheral pulses, regular rate, rhythm, no edema, no gallop, no JVD, no murmur Gastrointestinal/Abdominal: normal bowel sounds, non tender, soft, no organomegaly, no pulsatile mass Extremity: non-tender Neurologic: alert, oriented x 3 Skin Exam: normal color Progress - Progress Progress: 02/24/18 23:01 Laboratory Results WBC 7.7 K/mm3 (4.8-10.8) 02/24/18 22: RBC 4.22 M/mm3 (4.70-6.10) L 02/24/18 22: Hgb 13.8 gm/dL (14.0-18.0) L 02/24/18 22:01 Hct 39.9 % (42.0-52.0) L 02/24/18 22:01 MCV 94.6 fl (80.0-94.0) H 02/24/18 22:01 MCH 32.7 pg (27.0-31.0) H 02/24/18 22:01 MCHC 34.7 g/dL (33.0-37.0) 02/24/18 22:01 RDW 13.1 % (11.5-14.5) 02/24/18 22:01 Plt Count 120 K/mm3 (130-400) L 02/24/18 22:01 MPV 7.6 fl (7.40-10.4) 02/24/18 22:01 Absolute Neuts (auto) 4.40 K/uL (1.8-6.8) 02/24/18 22:01 Absolute Lymphs (auto) 2.00 K/uL (1.0-3.4) 02/24/18 22: Absolute Monos (auto) 1.10 K/uL (0.2-0.8) H 02/24/18 22:01 Absolute Eos (auto) 0.30 K/uL (0.0-0.4) 02/24/18 22: Absolute Basos (auto) 0.00 K/uL (0.0-0.1) 02/24/18 22:01 Neutrophils % 56.5 % (42.0-78.0) 02/24/18 22:01 Lymphocytes % 25.2 % (20.0-50.0) 02/24/18 22:01 Monocytes % 14.1 % (2.0-9.0) H 02/24/18 22:01 Eosinophils % 3.6 % (1.0-5.0) 02/24/18 22: Basophils % 0.6 % (0.0-2.0) 02/24/18 22:01 Sodium 133 mmol/L (135-145) L 02/24/18 22:01 Potassium 3.3 mmol/L (3.6-5.0) L 02/24/18 22:01 Chloride 96 mmol/L (101-111) L 02/24/18 22:01 Carbon Dioxide 26 mmol/L (21-31) 02/24/18 22:01 Anion Gap 14.3 (12-18) 02/24/18 22:01 BUN 21 mg/dL (7-18) H 02/24/18 22:01 Creatinine 1.22 mg/dL (0.6-1.3) 02/24/18 22:01 BUN/Creatinine Ratio 17.2 (10-20) 02/24/18 22:01 Random Glucose 141 mg/dL (70-105) H 02/24/18 22:01 Serum Osmolality 271.7 mOsm/L (275-295) L 02/24/18 22:01 Lactic Acid 1.6 mmol/L (0.5-2.2) 02/24/18 22:01 Calcium 9.1 mg/dL (8.4-10.2) 02/24/18 22:01 Total Bilirubin 0.6 mg/dL (0.2-1.0) 02/24/18 22:01 AST 26 IU/L (10-42) 02/24/18 22:01 ALT 30 IU/L (10-60) 02/24/18 22:01 Alkaline Phosphatase 74 IU/L (42-121) 02/24/18 22:01 Serum Total Protein 7.1 gm/ dL (6.4-8.2) 02/24/18 22: Albumin 4.0 g/dl (3.2-5.5) 02/24/18 22:01 Globulin 3.1 gm/dL (2.3-3.5) 02/24/18 22:01 Albumin/Globulin Ratio 1.3 (1.1-1.9) 02/24/18 22:01 Patient Name: CHANA BRADEN Gender: Male Date of : 1955 Referring Physician: MARY MASSEY Organization: [facility] Accession Number: [id number] Requested Date: February 24, 2018 22:01 Report Status: Final Requested Procedure: 1 Procedure Description: Chest,2 Views Modality: CR Findings Reporting MD: Miguel Ramirez Fellow MD: Not available Dictation Time: Site Damage Prevention Technician: Not available Cream Hauler Date: EXAM DESCRIPTION: Chest,2 Views CLINICAL HISTORY: 62 years Male, shortness of breath/?pneumonia COMPARISON: AP chest February 23, 2018 FINDINGS: No consolidation. No pneumothorax. No significant pleural effusion. Cardiac silhouette is enlarged but unchanged. Degenerative changes of the spine noted. Anterior wedging of a midthoracic vertebra is unchanged. IMPRESSION: No acute findings 02/24/18 23:03 discussed the patient's findings do not support at this time an acute pneumonia the patient does understand the chest x-rays can lag behind the patient by a couple of days. At this time he appears to have a COPD exacerbation. He continues to be very short of breath and wheezy with mild hypoxia of 91% on room air after 3 breathing treatments, Solu-Medrol, and Levaquin. We've called o n-call practitioner Peggy Kamara for admission and she has accepted. Patient is at high risk for rapid decompensation as he does not have access at this time to nebulizer treatments and continues to be short of breath with tight BS despite treatments as above. Departure - Departure Clinical Impression: COPD with acute exacerbation Disposition: Admit Patient Departure Forms: ED Discharge - Pt. Copy, Patient Portal Self Enrollment Referrals: Felipe Escudero MD [Primary Care Provider] - 1-2 Weeks Home Medications: Ambulatory Orders Aspirin [Aspirin Adult Low Dose] 81 mg PO DAILY 06/08/16 Glipizide [Glipizide Xl] 2.5 mg PO BID 11/01/16 Albuterol Sulfate Nebs [Proventil Nebs] 2.5 mg INH PRN 07/06/17 Mometasone Furoate-Formoterol [Dulera 200-5 Mcg/Act] 1 aer IN DAILY 07/06/17 Amlodipine Besylate 5 mg PO DAILY 02/23/18 Budesonide-Formoterol Fumarate [Symbicort] 1 aer IN DAILY 02/23/18 Fluoxetine HCl 20 mg PO DAILY 02/23/18 Lisinopril & Hydrochlorothiazi [Lisinopril/Hctz 20-25 mg] 1 tab PO DAILY Ortkt-5-Ktvz Ethyl Esters [Lmiai-5-Znmg Ethyl Esters 1 gm] 1 cap PO DAILY Potassium Chloride [Micro-K] 20 meq PO DAILY 02/23/18 Propranolol HCl [Propranolol HCl ER] 60 mg PO DAILY 02/23/18 Tamsulosin [Flomax] 0.4 mg PO QD 02/23/18 Triamcinolone 0.1% Oint [Kenalog 0.1% Ointment] 15 gm TOP BID #1 tube 02/23/18
[2018-02-24] MEDS ORDERED: LEVALBUTEROL NEBS 1.25 MG/3 ML VIAL NEB ONE ×2 (22:19)
[2018-02-24] MEDS ORDERED: methylPREDNISolone SODIUM SUC 125 MG/2 ML VIAL IM ONE (22:40)
--- NOTE | 2018-02-24 22:57 | RAD ---
EXAM DESCRIPTION: Chest,2 Views CLINICAL HISTORY: 62 years Male, shortness of breath/?pneumonia COMPARISON: AP chest February 23, 2018 FINDINGS: No consolidation. No pneumothorax. No significant pleural effusion. Cardiac silhouette is enlarged but unchanged. Degenerative changes of the spine noted. Anterior wedging of a midthoracic vertebra is unchanged. IMPRESSION: No acute findings. Electronically signed by: Miguel Ramirez MD 02/24/2018 10:55 PM CDT
--- NOTE | 2018-02-24 23:23 | HP ---
SUPERVISING PHYSICIAN: Kj Valenzuela M.D. CHIEF COMPLAINT: Shortness of breath. HISTORY OF PRESENT ILLNESS: Mr. Braden is a 62 year-old male patient who has a history of chronic obstructive pulmonary disease, but is not currently on any breathing treatments. He presented to the Emergency Room the day before yesterday with complaints of some shortness of breath and was told there was nothing wrong with him, and he was discharged home. Since discharge the patient has continued to have increasing cough, purulent sputum, wheezing and shortness of breath. He presented to the Emergency Room again for evaluation and was found to have a low-grade temperature of 99.4, satting 91 to 92 on room air but obviously short of breath and audible wheezing. He was give breathing treatments and Solu-Medrol with minimal improvement. His labs showed he had a white count of 7,700. Radiographic studies on his chest x-ray per radiology interpretation of 2 view chest showed no acute findings. Given his history of chronic obstructive pulmonary disease and obvious respiratory distress, and having failed to respond to outpatient treatment plan in regards to his COPD exacerbation, the patient is now going to be admitted to the hospital for continued treatment and evaluation of COPD exacerbation with concerns for developing community-acquired pneumonia. The patient is admitted in stable condition. PAST MEDICAL HISTORY: 1. Hypertension. 2. Chronic obstructive pulmonary disease. 3. Diabetes mellitus type 2. 4. Obesity. 5. Sleep apnea utilizing CPAP. 6. Emphysema. 7. History of plantar fasciitis. PAST SURGICAL HISTORY: 1. Tonsillectomy. 2. Right arm lymph node removed in 2013. CURRENT MEDICATIONS: 1. Lisinopril/Hydrochlorothiazide 20-25 mg 1 tablet daily. 2. Albuterol nebulizers 2.5 mg every 4 hours as needed. 3. Symbicort 1 actuator inhaled daily. 4. Propranolol 60 mg daily. 5. Lake-3 acid ethyl esters 1 capsule twice daily. 6. Glipizide XL 2.5 mg b.i.d. 7. Potassium chloride 10 mEq daily. 8. Flomax 0.4 mg daily. 9. Aspirin 81 mg daily. 10. Amlodipine 10 mg daily. 11. Trulicity 1.5 subcue monthly. ALLERGIES: CODEINE AND PENICILLINS. FAMILY HISTORY: Positive for coronary artery disease and diabetes. SOCIAL HISTORY: The patient is a former smoker but quit last year. He denies any alcohol or illicit drug use. He currently is single and lives in [place]. 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 REVIEW OF SYSTEMS: CONSTITUTIONAL: Denies any chills, fever, diaphoresis or weakness. HEENT: Denies any ear pain or throat pain. RESPIRATORY: As noted in History of Present Illness, worsening cough, shortness of breath, wheezing and productive sputum. CARDIOVASCULAR: Denies any chest pains, edema, palpitations or syncopal episodes. GASTROINTESTINAL: Denies any abdominal pains, diarrhea, nausea or vomiting or constipation. GENITOURINARY: Denies any dysuria, hematuria, polyuria or other urinary symptoms. NEUROLOGIC: Denies any ataxia, seizures, syncope or near syncopal episodes. The patient does have a tremor that has been present for a length of time that appears to be chronic. PHYSICAL EXAMINATION: VITAL SIGNS: Temperature 99.4, pulse 90, blood pressure 145/84, respirations 24 with shortness of breath and accessory muscles utilized, satting 91 to 92% on room air at rest. Admission weight 115.3 kg. GENERAL: On admission to the Medical/Surgical floor, the patient appears to be resting comfortably in no acute distress. There is some audible wheezes noted. He is alert. HEENT: Tympanic membranes are clear bilaterally. Oropharynx is pink and moist without any lesions. NECK: Supple, non-tender. Full range of motion. No jugular venous distention. CHEST: Breath sounds were decreased more so on the left than the right with wheezing noted in all lung granados, more prominent on the expiratory than inspiratory phase. CARDIOVASCULAR: Heart rate was regular rate and rhythm without any appreciable murmurs, gallops, or rubs. ABDOMEN: Obese but soft, non-tender with positive bowel sounds. EXTREMITIES: No clubbing, cyanosis or edema. NEUROLOGIC: He is alert and oriented times three. LABORATORY: White count 7,700, hemoglobin 13.8, hematocrit 39.9, platelet count 120,000. Differential showed to be without a left shift. Chemistries showed a mild hyponatremia and hypokalemia with potassium 3.3, sodium 133, CO2 was 26, BUN 21, creatinine 1.22, glucose 141. Liver functions all were within normal limits. Lactic acid normal at 1.6, calcium 8.8. MICROBIOLOGY: Sputum cultures are pending. Blood cultures were not collected in the E. R. prior to administration of antibiotics. RADIOLOGY: Chest x-ray of 2 view chest in the Emergency Department prior to admission per radiology interpretation showed no acute findings. ASSESSMENT: 1. Acute exacerbation of chronic obstructive pulmonary disease having failed to respond to outpatient treatment plan with concerns for developing community acquired pneumonia. 2. Hypertension. 3. Diabetes mellitus type 2 on oral therapy. 4. Obesity as noted with a body mass index of 34.5. 5. Obstructive sleep apnea utilizing CPAP. 6. History of benign prostatic hypertrophy on Flomax. PLAN: The patient is going to be admitted to the Medical/Surgical floor for ongoing evaluation and treatment of exacerbation of chronic obstructive pulmonary disease with concerns for community acquired pneumonia. He was initiated on Levaquin in the Emergency Department as well as given 125 mg of Solu-Medrol. He was started on DuoNeb breathing treatments and aggressive pulmonary hygiene. Will continue with current antibiotic regimen of Levaquin and aggressive pulmonary hygiene. Will restart his medications once those have been updated and verified. He will be on DVT prophylaxis as per protocol as well as Protonix for GI protection. Will anticipate his length of stay to be 2 to 3 days until clinically stable and will be able to continue with outpatient treatment management. The patient will be followed closely and treated appropriately. Once clinically stable and able to transition to p.o. medication , the patient will need close followup with his primary care provider, Dr. Escudero. #[id number] [facility]
[2018-02-24] MEDS ORDERED: ENOXAPARIN SODIUM 40 MG/0.4 ML SYG SUBCU SCH (23:45)
[2018-02-24] MEDS ORDERED: ALBUTEROL SULFATE 2.5 MG/3 ML VIAL NEB PRN (23:53)
[2018-02-25] MEDS: IV SET AND CAP CHANGE INJ INJ SCH (00:07)
[2018-02-25] MEDS: PANTOPRAZOLE SODIUM IV 40 MG VIAL IV SCH (06:06)
--- NOTE | 2018-02-25 08:17 | RAD ---
PROCEDURE: Chest,2 Views CLINICAL HISTORY: Pneumonia INDICATION: Same as above COMPARISON: 02/24/2018 TECHNIQUE: PA and and lateral chest radiographs were obtained. FINDINGS: Multilevel degenerative changes seen in the thoracic spine There are no discrete airspace infiltrates, pneumothoraces or pleural effusions. The pulmonary vascularity is normal The cardiomediastinal silhouette is stable. IMPRESSION: There is no acute pleural-parenchymal process seen in the imaged lung granados. Place of interpretation: Teleradiology. Electronically signed by: Wyatt Choe MD 02/25/2018 8:16 AM CDT Workstation: [id number]
[2018-02-25] MEDS: IPRATROPIUM/ALBUTEROL 3 ML VIAL NEB SCH ×4 (08:22→20:09)
[2018-02-25] MEDS ORDERED: DEXTROSE 50% 25 GM/50 ML SYG IV PRN (09:25)
[2018-02-25] MEDS ORDERED: GLUCAGON INJ 1 MG VIAL SUBCU PRN (09:25)
[2018-02-25] MEDS ORDERED: NON-FORMULARY MEDICATION 1 EA MIS (Lisinopril & Hydrochlorothiazi [Lisinopril/Hctz 20-25 M PO SCH (09:30)
[2018-02-25] MEDS: hydroCHLOROthiazide 25 MG TAB PO SCH (10:46)
[2018-02-25] MEDS: TAMSULOSIN 0.4 MG CAP PO SCH (10:46)
[2018-02-25] MEDS: LISINOPRIL 10 MG TAB PO SCH (10:46)
[2018-02-25] MEDS: POTASSIUM CHLORIDE 10 MEQ TAB PO SCH (10:47)
[2018-02-25] MEDS: glipiZIDE EXTENDED REL (XL) 2.5 MG TAB PO SCH ×2 (10:47→17:50)
[2018-02-25] MEDS: amLODIPine BESYLATE 5 MG TAB PO SCH (10:47)
[2018-02-25] MEDS: ASPIRIN (ENTERIC COATED) 81 MG TAB PO SCH (10:47)
[2018-02-25] MEDS: SODIUM CHLORIDE 0.9% (FLUSH) 10 ML SYG IV SCH ×2 (10:50→20:36)
[2018-02-25] MEDS: PROPRANOLOL HCL 60 MG PO SCH (10:51)
[2018-02-25] MEDS ORDERED: KETOROLAC TROMETHAMINE INJ 30 MG/ML VIAL IV ONE (12:05)
[2018-02-25] MEDS: INSULIN LISPRO 100 UNITS/ML PEN SUBCU SCH ×3 (12:30→20:49)
[2018-02-25] MEDS: methylPREDNISolone SODIUM SUC 125 MG/2 ML VIAL IV SCH ×3 (12:35→23:34)
[2018-02-25] MEDS: SODIUM CHLORIDE 0.9% 1000ML 1,000 ML IVS PRN (12:35)
[2018-02-25] MEDS: levoFLOXacin 750MG IV 750 MG in PREMIX BAG 1 BAG IVPB SCH (20:33)
[2018-02-25] MEDS: ENOXAPARIN SODIUM 40 MG/0.4 ML SYG SUBCU SCH (20:37)
[2018-02-25] MEDS ORDERED: levoFLOXacin 500MG IV 500 MG in PREMIX BAG 1 BAG IVPB SCH (21:00)
--- NOTE | 2018-02-25 22:19 | PN ---
DATE: 02/25/18 SUPERVISING PHYSICIAN: Kj Valenzuela M.D. SUBJECTIVE: The patient is resting in bed. Just finished a pulmonary treatment. He notes that he is still somewhat short of breath but has no chest pains. He has been afebrile. He is producing purulent-looking sputum which has been sent for culture. OBJECTIVE: VITAL SIGNS: Temperature 98.1, pulse 74, blood pressure 118/72, respirations 16, satting 95% on nasal cannula at 2 liters at rest. I's and O's show a negative balance of 150 with 150 in, 300 out. Weight is 115.3 kg. CHEST : Lungs continue to be decreased with some faint wheezing but no rhonchi noted today. Again, wheezing is notably more expiratory than inspiratory. HEART: Regular rate and rhythm. ABDOMEN: Obese but soft, non-tender. Positive bowel sounds. EXTREMITIES: No clubbing, edema or cyanosis. NEUROLOGIC: He remains alert and oriented times three. LABORATORY: White count 5,900 with hemoglobin 13.4, hematocrit 30.6. RBC indices indicate a macrocytic/hyperchromic presentation. Platelet count is 120, 000. Differential shows an early left shift. Chemistries show a persistent hyponatremia of 133 with potassium 4.2, BUN 21, creatinine 1 with glucose 225, calcium 8.8. Urinalysis was pending. MICROBIOLOGY: Sputum culture is pending. RADIOLOGY: Chest x-ray this morning, 2 view chest, per radiology interpretation showed no acute pleural or parenchymal processes seen in imaged granados. ASSESSMENT: 1. Acute exacerbation of chronic obstructive pulmonary disease having failed to respond to outpatient treatment management plan with concerns for developing community acquired pneumonia requiring aggressive management with corticosteroids, parenteral antibiotics and aggressive pulmonary hygiene. 2. Hypertension, stable. 3. Diabetes mellitus type 2 on oral therapy. 4. Electrolyte imbalance to include hyponatremia likely chronic with the patient on a thiazide diuretic. 5. Renal insufficiency probably secondary to thiazide diuretic with some prerenal azotemia complicated by his chronic obstructive pulmonary disease exacerbation. 6. Obesity as noted with a body mass index of 34.5. 7. Obstructive sleep apnea utilizing CPAP. 8. History of benign prostatic hypertrophy on Flomax with no complications. PLAN: Will continue with aggressive pulmonary hygiene and parenteral antibiotics with Levaquin. I will increase his dose to 750 every 24 hours. Given that he continues to have a significant amount of wheezing and history of COPD, I will go ahead and continue his Solu-Medrol at 60 mg every 6 hours IV for 4 more doses. I resumed his home medications. He will remain on DVT prophylaxis and GI prophylaxis with Protonix. Will plan to repeat labs and a chest x-ray in the morning. Until clinically stable and can discharge on oral medications, will continue to monitor and treat appropriately. #[id number] [facility]
[2018-02-26] MEDS: SODIUM CHLORIDE 0.9% 1000ML 1,000 ML IVS PRN ×2 (02:14→15:02)
[2018-02-26] MEDS: methylPREDNISolone SODIUM SUC 125 MG/2 ML VIAL IV SCH (05:37)
[2018-02-26] MEDS: PANTOPRAZOLE SODIUM IV 40 MG VIAL IV SCH (06:02)
[2018-02-26] MEDS: INSULIN LISPRO 100 UNITS/ML PEN SUBCU SCH ×4 (07:07→20:51)
[2018-02-26] MEDS: glipiZIDE EXTENDED REL (XL) 2.5 MG TAB PO SCH ×2 (07:08→16:32)
[2018-02-26] MEDS: POTASSIUM CHLORIDE 10 MEQ TAB PO SCH (07:18)
--- NOTE | 2018-02-26 07:22 | RAD ---
EXAM: Two view chest. INDICATION: COPD. COMPARISON: Chest x-ray: 02/25/2018. FINDINGS: Cardiac silhouette: Enlarged Harriet: Unremarkable. Lobar consolidation: None. Pleural effusion: None. Pneumothorax: None. Other: None. Bones: Unremarkable. Other: None. IMPRESSION: 1. No acute cardiopulmonary process. Electronically signed by: Tristan Fisher MD 02/26/2018 7:21 AM CDT Workstation: [id number]
[2018-02-26] MEDS: SODIUM CHLORIDE 0.9% (FLUSH) 10 ML SYG IV PRN (08:00)
[2018-02-26] MEDS: TAMSULOSIN 0.4 MG CAP PO SCH (08:00)
[2018-02-26] MEDS: amLODIPine BESYLATE 5 MG TAB PO SCH (08:01)
[2018-02-26] MEDS: LISINOPRIL 10 MG TAB PO SCH (08:01)
[2018-02-26] MEDS: ASPIRIN (ENTERIC COATED) 81 MG TAB PO SCH (08:01)
[2018-02-26] MEDS: hydroCHLOROthiazide 25 MG TAB PO SCH (08:01)
[2018-02-26] MEDS: PROPRANOLOL HCL 60 MG PO SCH (08:02)
[2018-02-26] MEDS: IPRATROPIUM/ALBUTEROL 3 ML VIAL NEB SCH ×4 (08:03→20:05)
[2018-02-26] MEDS: guaiFENesin ER TAB 600 MG TAB PO SCH ×2 (10:34→20:45)
[2018-02-26] MEDS ORDERED: methylPREDNISolone SODIUM SUC 40 MG/ML VIAL ONE (12:24)
[2018-02-26] MEDS: methylPREDNISolone SODIUM SUC 40 MG/ML VIAL IV SCH ×2 (12:25→17:28)
--- NOTE | 2018-02-26 15:23 | PN ---
DATE: 02/26/18 SUPERVISING PHYSICIAN: Kj Valenzuela M.D. SUBJECTIVE: The patient says he continues with a cough but is able to produce much of his sputum. He still has a complaint of some shortness of breath and just not feeling well overall. He has no chest pain, diarrhea, nausea or vomiting and he remains afebrile. OBJECTIVE: VITAL SIGNS: Temperature 97.6, pulse 64, blood pressure 132/62, respirations 18 , saturation 94% on nasal cannula at 2 liters, I's and O's show a positive balance of 150 with 2200 in, 0 out. Weight is 117.8 kg. CHEST: Lung sounds are diminished throughout with notable rhonchi and some inspiratory wheezing heard in the right upper apices with no rales noted. HEART: Regular rate and rhythm. ABDOMEN: Obese but soft, non-tender. Positive bowel sounds. EXTREMITIES: No clubbing, edema or cyanosis. NEUROLOGIC: He remains alert and oriented times three. LABORATORY: White count has gone up to 11,200. Hemoglobin 12.5, hematocrit 37.1 with continued macrocytic/hyperchromic presentation. Platelet count is 105 ,000. Differential shows a left shift increasing bands at 14%. Chemistries show a persistent hyponatremia with sodium of 133, BUN 20, creatinine 0.91. Blood sugars have been between 177 and 280. Calcium 8.1. Urinalysis showed 500 glucose, otherwise within normal limits. . MICROBIOLOGY: Sputum culture and gram stain are pending. RADIOLOGY: Repeat chest x-ray this morning per radiology interpretation showed no acute cardiopulmonary processes. ASSESSMENT: 1. Acute exacerbation of chronic obstructive pulmonary disease having failed to respond to outpatient treatment management plan with again concerns for developing community acquired pneumonia requiring continued aggressive management with corticosteroids, parenteral antibiotics and aggressive pulmonary hygiene. 2. Hypertension, stable. 3. Diabetes mellitus type 2 on oral therapy. 4. Electrolyte imbalance with persistent hyponatremia likely chronic with the patient on a Dyazide diuretics. 5. Continued renal insufficiency probably secondary to thiazide diuretics with some continued prerenal azotemia complicated by his chronic obstructive pulmonary disease exacerbation. 6. Obesity as noted with a body mass index of 34.5. 7. Obstructive sleep apnea utilizing CPAP. 8. History of benign prostatic hypertrophy on Flomax with no complications noted. PLAN: Will continue with current plan of care with aggressive pulmonary hygiene , chest percussive therapy and Levaquin IV 750 mg. He continues to have some inspiratory and expiratory wheezing. Will continue with Solu-Medrol but will decrease to 40 mg every 6 hours for an additional four doses. We will resume his home medications as appropriate and he is on DVT prophylaxis as well as GI prophylaxis while on Solu-Medrol with IV Protonix. Will again plan to repeat labs and chest x-ray in the morning and hopefully be able to discharge in the next 24 to 48 hours if the patient stabilizes and is able to deescalate to oral medications. Until the, we will continue to monitor and treat appropriately. #[id number] [facility]
[2018-02-26] MEDS: ENOXAPARIN SODIUM 40 MG/0.4 ML SYG SUBCU SCH (20:46)
[2018-02-26] MEDS: levoFLOXacin 750MG IV 750 MG in PREMIX BAG 1 BAG IVPB SCH (20:47)
[2018-02-26] MEDS ORDERED: ALPRAZolam 0.25 MG TAB PO ONE (23:00)
[2018-02-26] MEDS ORDERED: ALPRAZolam 0.5 MG TAB ONE (23:02)
[2018-02-27] MEDS: methylPREDNISolone SODIUM SUC 40 MG/ML VIAL IV SCH ×4 (00:09→17:08)
[2018-02-27] MEDS: SODIUM CHLORIDE 0.9% (FLUSH) 10 ML SYG IV PRN (00:09)
[2018-02-27] MEDS: SODIUM CHLORIDE 0.9% 1000ML 1,000 ML IVS PRN (04:34)
[2018-02-27] MEDS: PANTOPRAZOLE SODIUM IV 40 MG VIAL IV SCH (06:23)
--- NOTE | 2018-02-27 07:51 | RAD ---
Procedure: XR CHEST 2 VIEWS Exam Date: 02/27/2018 Ordering Provider: Terence Orellana NP Clinical Indication: copd exacerbation; ? rt sided pneumonia Comparison: 02/26/2018 Findings: Cardiomegaly. No focal lung consolidation. No pleural effusion. No pneumothorax. No acute osseous abnormalities. Impression: 1. No acute abnormalities in the chest. Electronically signed by: Robert Beltrán MD 02/27/2018 7:50 AM CDT
[2018-02-27] MEDS: IPRATROPIUM/ALBUTEROL 3 ML VIAL NEB SCH ×4 (08:04→20:36)
[2018-02-27] MEDS: INSULIN LISPRO 100 UNITS/ML PEN SUBCU SCH ×4 (08:23→21:14)
[2018-02-27] MEDS: POTASSIUM CHLORIDE 10 MEQ TAB PO SCH (08:33)
[2018-02-27] MEDS: glipiZIDE EXTENDED REL (XL) 2.5 MG TAB PO SCH ×2 (08:33→17:08)
[2018-02-27] MEDS: guaiFENesin ER TAB 600 MG TAB PO SCH ×2 (08:45→21:16)
[2018-02-27] MEDS: LISINOPRIL 10 MG TAB PO SCH (08:45)
[2018-02-27] MEDS: hydroCHLOROthiazide 25 MG TAB PO SCH (08:45)
[2018-02-27] MEDS: TAMSULOSIN 0.4 MG CAP PO SCH (08:45)
[2018-02-27] MEDS: ASPIRIN (ENTERIC COATED) 81 MG TAB PO SCH (08:46)
[2018-02-27] MEDS: amLODIPine BESYLATE 5 MG TAB PO SCH (08:46)
[2018-02-27] MEDS: PROPRANOLOL HCL 60 MG PO SCH (08:47)
[2018-02-27] MEDS: SODIUM CHLORIDE 0.9% (FLUSH) 10 ML SYG IV SCH ×2 (12:48→21:17)
--- NOTE | 2018-02-27 15:15 | PN ---
DATE: 02/27/18 SUPERVISING PHYSICIAN: Kj Valenzuela M.D. SUBJECTIVE: The patient is resting in bed. He has had continued wheezing and some mild shortness of breath. No chest pain and he remains afebrile. Discussed that he needs to be up practicing some good deep breathing exercises as well as trying to ambulate and at least be in a chair for meals.. OBJECTIVE: VITAL SIGNS: Temperature 97.5, pulse 62, blood pressure 129/76, respirations 18 , saturation 96% on nasal cannula at 3 liters, I's and O's show a positive balance of 1385 with 3885 in, 2500 out. Weight is 118.1 kg. CHEST: Lung sounds are diminished bilaterally and coarse to the upper right lung granados with some continued expiratory wheezing, HEART: Regular rate and rhythm. ABDOMEN: Obese but soft, non-tender. Positive bowel sounds. EXTREMITIES: No clubbing, edema or cyanosis. NEUROLOGIC: He is alert and oriented times three. LABORATORY: White count 11,900. Hemoglobin stable at 13.4, hematocrit 39.2 with platelet count of 115,000. Differential shows to continue the left shift. Chemistries continue to show persistent hyponatremia with potassium 3.7, BUN 16, creatinine 0.8. . MICROBIOLOGY: Sputum culture and gram stain still pending. RADIOLOGY: Chest x-ray per radiology interpretation continues to show no acute abnormalities in the chest including no focal lung consolidation. ASSESSMENT: 1. Acute exacerbation of chronic obstructive pulmonary disease having failed to respond to outpatient treatment management with concerns for developing community acquired pneumonia requiring ongoing aggressive management with corticosteroids, parenteral antibiotics and aggressive pulmonary hygiene. 2. Hypertension, stable. 3. Diabetes mellitus type 2 on oral therapy. 4. Electrolyte imbalance with persistent hyponatremia likely chronic with the patient on Dyazide diuretic. 5. Renal insufficiency secondary to Dyazide diuretics with some prerenal azotemia complicated by his chronic obstructive pulmonary disease exacerbation. 6. Obesity with a body mass index of 34.5. 7. Obstructive sleep apnea utilizing CPAP. 8. History of benign prostatic hypertrophy on Flomax with no complications noted. PLAN: He continues to have wheezing, we will continue with IV corticosteroids. as well as Levaquin IV 750 mg every 24 hours. He continues on Mucinex and has been hydrated and is able to produce somewhat more sputum today. Will continue with aggressive pulmonary hygiene with chest percussive therapy in efforts to mobilize some of the mucus. He will be saline-locked as he has had an adequate rehydration and is more euvolemic today. He remains on GI prophylaxis, Protonix while on Solu-Medrol and is on DVT prophylaxis. Will repeat his lab and chest x-ray in the morning and hopefully be able to discharge to outpatient management with p.o. antibiotics. Until then, we will continue to monitor and treat appropriately. #[id number] [facility]
[2018-02-27] MEDS ORDERED: BISACODYL TAB 5 MG TAB PO PRN (17:23)
[2018-02-27] MEDS ORDERED: MAGNESIUM HYDROXIDE 30 ML UD PO SCH (21:00)
[2018-02-27] MEDS: ENOXAPARIN SODIUM 40 MG/0.4 ML SYG SUBCU SCH (21:15)
[2018-02-27] MEDS: levoFLOXacin 750MG IV 750 MG in PREMIX BAG 1 BAG IVPB SCH (21:15)
[2018-02-28] MEDS: methylPREDNISolone SODIUM SUC 40 MG/ML VIAL IV SCH (00:19)
[2018-02-28] MEDS: IV SET AND CAP CHANGE INJ INJ SCH (00:20)
[2018-02-28] MEDS ORDERED: PANTOPRAZOLE SODIUM TAB 40 MG PO SCH (06:30)
[2018-02-28] MEDS: INSULIN LISPRO 100 UNITS/ML PEN SUBCU SCH ×2 (07:11→11:32)
[2018-02-28] MEDS: glipiZIDE EXTENDED REL (XL) 2.5 MG TAB PO SCH (07:12)
[2018-02-28] MEDS: POTASSIUM CHLORIDE 10 MEQ TAB PO SCH (07:33)
[2018-02-28] MEDS: guaiFENesin ER TAB 600 MG TAB PO SCH (08:09)
[2018-02-28] MEDS: ASPIRIN (ENTERIC COATED) 81 MG TAB PO SCH (08:09)
[2018-02-28] MEDS: SODIUM CHLORIDE 0.9% (FLUSH) 10 ML SYG IV SCH (08:09)
[2018-02-28] MEDS: hydroCHLOROthiazide 25 MG TAB PO SCH (08:09)
[2018-02-28] MEDS: LISINOPRIL 10 MG TAB PO SCH (08:09)
[2018-02-28] MEDS: TAMSULOSIN 0.4 MG CAP PO SCH (08:10)
[2018-02-28] MEDS: amLODIPine BESYLATE 5 MG TAB PO SCH (08:10)
[2018-02-28] MEDS: PROPRANOLOL HCL 60 MG PO SCH (08:10)
[2018-02-28] MEDS: IPRATROPIUM/ALBUTEROL 3 ML VIAL NEB SCH (08:29)
[2018-02-28] MEDS ORDERED: predniSONE 20 MG TAB PO SCH (09:00)
[2018-02-28] MEDS ORDERED: FISH OIL 1,200 MG CAP PO SCH ×2 (09:00)
[2018-02-28 10:28] VITALS: BP 146/77; TEMP 97.9; O2SAT 94
--- NOTE | 2018-02-28 21:13 | DS ---
SUPERVISING PHYSICIAN: Kj Valenzuela M.D. ADMISSION DIAGNOSIS: 1. Acute exacerbation of chronic obstructive pulmonary disease having failed to respond to outpatient treatment plan with initial concerns for developing community acquired pneumonia. 2. Hypertension. 3. Diabetes mellitus type 2 on oral therapy. 4. Obesity as noted with a body mass index of 34.5. 5. Obstructive sleep apnea utilizing CPAP at night. 6. History of benign prostatic hypertrophy on Flomax. DISCHARGE DIAGNOSIS: 1. Acute exacerbation of chronic obstructive pulmonary disease having failed to respond to outpatient treatment plan with no obvious signs of acute community acquired pneumonia but continued requirements of aggressive management with corticosteroids, parenteral antibiotics and aggressive pulmonary hygiene, but stabilizing and able to deescalate to p.o. medication regimen. 2. History of chronic obstructive pulmonary disease with chronic bronchitis with poor control secondary to poor medical compliance with usp treatment of chronic obstructive pulmonary disease. 3. Hypertension, stable. 4. Diabetes mellitus type 2 on oral therapy. 5. Electrolyte imbalance with hyponatremia that is persistent more likely chronic in nature with the patient on a thiazide diuretic. 6. Renal insufficiency secondary to thiazide diuretics with a degree of prerenal azotemic state complicated by his chronic obstructive pulmonary disease but showing improvement with fluids. 7. Obesity with a body mass index of 34.5. 8. Obstructive sleep apnea utilizing CPAP. 9. History of benign prostatic hypertrophy on Flomax with no complications noted during admission. REASON FOR HOSPITALIZATION: Mr. Braden is a 62 year-old male patient who has a history of chronic obstructive pulmonary disease, and is not very compliant with his regimen for maintenance of COPD and not currently on usp management. He presented to the Emergency Room initially on 02/23/18, the day before admission, complaining of some shortness of breath. At that time he was told there was nothing wrong with him, and he was discharged home. After discharge, the patient has continued to have increasing shortness of breath, productive sputum and wheezing. He then presented back to the Emergency Room on 02/24/18 for evaluation and was found to have a low-grade temperature of 99.4, satting 91 to 92% on room air with some obvious shortness of breath and audible wheezing. He was given breathing treatments and Solu- Medrol and had minimal improvement. His labs showed a normal white count. Radiographic studies of 2 view chest per radiology interpretation showed no acute findings at that time. Given his history of chronic obstructive pulmonary disease and obvious respiratory distress, and having failed to respond to outpatient treatment plan in regards to his COPD exacerbation, the patient was admitted to the hospital for initiation of treatment and evaluation of COPD exacerbation with concerns for developing community-acquired pneumonia. The patient was admitted in stable condition. LABORATORY STUDIES: White count on admission was 7,700. White count did go up to a maximum of 11,900, at discharge had gone down to 10,200. Hemoglobin and hematocrit were stable, on discharge hemoglobin was 13.7, hematocrit 39.5. Platelets were 111,000. Differential did show a left shift on admission and he developed bandemia shortly after admission which did resolve and was showing improvements prior to discharge after treatment with antibiotics. Chemistries initially on admission showed sodium was low at 133, potassium 3.3, BUN 21, creatinine 1.21. Liver functions all showed to be within normal limits. With fluids and treatment, and prior to discharge he was still continuing to show a low sodium of 132. Potassium was up to 4.0, BUN 17, creatinine 0.7. Blood sugars ranged between 173 and 280. Urinalysis just showed 500 of glucose, otherwise within normal limits. He did have a Strep culture that was collected , Strep screen and Strep culture that was collected on 02/23/18 that showed no beta hemolytic Streptococcus isolated. Gram stain after admission for antibiotics showed less than 10 epithelials with a few WBCs and rare gram positive cocci. Sputum culture at discharge was still pending with a few mixed gram positive syeda noted. Final culture is pending. RADIOLOGY: Initially on admission he had a chest x-ray and per radiology interpretation of a single view chest showed no acute findings. He had multiple chest x-rays through his admission process and last x-ray on 02/27/18, the day before discharge, per radiology interpretation continued to show no acute abnormalities in the chest. HOSPITAL COURSE: Mr. Braden was admitted from the [facility] on 02/24/18 for exacerbation of COPD with concerns for developing community acquired pneumonia. He did have a mild fever on admission and was wheezing. Initially he was started on Levaquin 750 daily along with corticosteroids IV which was continued up until discharge and he was transitioned to p.o. medications. He did show slow progression in his treatment course but on the day of discharge was showing good improvement, was ambulating without any significant distress and was having no further complaints. It was felt that he had clinically improved well enough to continue with outpatient management with p.o. medication. PLAN: Mr. Braden was discharged on 02/28/18 with instructions to followup with Dr. Escudero in 7 days as scheduled. He is to resume his home medications as instructed. He was reminded to utilize his Symbicort inhaler daily and not just as needed to better control his COPD on a usp maintenance basis. He was again reminded that his Symbicort was not for short term management and should he have any concerns for exacerbation once again he is to utilize Albuterol and to return to the hospital should he have any concerning symptoms or worsening symptoms. Diet at discharge was diabetic diet as tolerated. Activity is increase as tolerated. DISCHARGE MEDICATIONS: 1. Dulcolax tablet 5 mg daily as needed to prevent constipation. 2. Symbicort 160-4.5 mcg per actuator, 2 inhaled daily. 3. Guaifenesin 1200 mg twice daily. 4. Levaquin 500 mg, #4. 5. Medrol Dosepak 4 mg, 6 day pack. Take as directed. Condition on discharge was stable and improved. #[id number] [facility]
== END 2018-02-28 13:00 | disposition home or self-care (01) | DRG 191 ==
LOC: ER 21:43 → OBSVTOIN 23:22 → MS 23:22
PROVIDERS: ADMIT Nurse Practitioner Family; ATTEND Nurse Practitioner Family
DX: J44.1 Chronic obstructive pulmonary disease with (acute) exacerbation (principal); E87.1 Hypo-osmolality and hyponatremia; I10 Essential (primary) hypertension; E11.9 Type 2 diabetes mellitus without complications; G47.33 Obstructive sleep apnea (adult) (pediatric); N40.0 Benign prostatic hyperplasia without lower urinary tract symptoms; N28.9 Disorder of kidney and ureter, unspecified; L30.9 Dermatitis, unspecified; T50.2X5A Adverse effect of carbonic-anhydrase inhibitors, benzothiadiazides and other diuretics, initial encounter; E66.9 Obesity, unspecified; Y92.009 Unspecified place in unspecified non-institutional (private) residence as the place of occurrence of the external cause; Z91.19 Patient's noncompliance with other medical treatment and regimen; Z79.51 Long term (current) use of inhaled steroids; Z79.84 Long term (current) use of oral hypoglycemic drugs; Z79.899 Other long term (current) drug therapy; Z79.82 Long term (current) use of aspirin; Z68.34 Body mass index [BMI] 34.0-34.9, adult; Z88.0 Allergy status to penicillin; Z88.5 Allergy status to narcotic agent; Z87.891 Personal history of nicotine dependence

== ENCOUNTER 2018-08-04 16:53 | Emergency (ER) | payer MEDICARE, MEDICAID ==
[2018-08-04 17:14] VITALS: TEMP 97.3
[2018-08-04] MEDS ORDERED: IPRATROPIUM/ALBUTEROL 3 ML VIAL NEB ONE (17:24)
--- NOTE | 2018-08-04 17:28 | ED.PDOC ---
History of Present Illness - General Chief Complaint: Respiratory Problem Stated Complaint: shortness of breath Time Seen by Provider: 08/04/18 17:15 Source: patient Exam Limitations: no limitations - History of Present Illness Timing/Duration: yesterday Cough Quality/Degree: dry cough Possible Cause: occasional episodes Improving Factors: nothing Worsening Factors: movement Associated Symptoms: chest pain/soreness, dizziness, fever/chills, shortness of breath Allergies/Adverse Reactions: Allergies Codeine Allergy (Verified 02/25/18 01:06) Penicillins Allergy (Verified 02/25/18 01:06) Home Medications: Ambulatory Orders Aspirin [Aspirin Adult Low Dose] 81 mg PO DAILY 06/08/16 Glipizide [Glipizide Xl] 2.5 mg PO BID 06/08/16 Albuterol Sulfate Nebs [Proventil Nebs] 2.5 mg INH Q4H PRN 07/06/17 Amlodipine Besylate 10 mg PO DAILY 02/23/18 Lisinopril & Hydrochlorothiazi [Lisinopril/Hctz 20-25 mg] 1 tab PO DAILY 02/23/18 Zhnvz-6-Sqnd Ethyl Esters [Xouub-4-Ijlk Ethyl Esters 1 gm] 1 cap PO BID 02/23/18 Potassium Chloride [Micro-K] 10 meq PO DAILY 02/23/18 Propranolol HCl [Propranolol HCl ER] 60 mg PO DAILY 02/23/18 Tamsulosin [Flomax] 0.4 mg PO QD 02/23/18 Dulaglutide [Trulicity] 1.5 mg SC MONTHLY 02/25/18 Albuterol Sulfate Nebs [Proventil Nebs] 2.5 mg INH Q4HR #60 vial 02/28/18 Bisacodyl [Dulcolax Tab] 5 mg PO DAILY PRN tab 02/28/18 Budesonide-Formoterol Fumarate [Symbicort 160-4.5 Mcg/Act] 2 inh IN DAILY #1 02/28/18 Methylprednisolone [Medrol Dose Siva] 4 mg PO DAILY 6 Days #21 tab 02/28/18 guaiFENesin ER TAB [Mucinex Tab] 1,200 mg PO BID tab 02/28/18 levoFLOXacin [Levaquin] 500 mg PO DAILY #4 tab 02/28/18 Apixaban [Eliquis] 5 mg PO BID #30 tab 08/04/18 Digoxin 0.25 mg PO QAM #30 tab 08/04/18 Review of Systems - Review of Systems Constitutional: States: chills, weakness EENTM: States: no symptoms reported Respiratory: States: cough, short of breath, wheezing Cardiology: States: chest pain Gastrointestinal/Abdominal: States: nausea. Denies: abdominal pain, diarrhea, vomiting Genitourinary: States: no symptoms reported Musculoskeletal: States: no symptoms reported Skin: States: no symptoms reported Neurological: States: no symptoms reported Endocrine: States: no symptoms reported Hematologic/Lymphatic: States: no symptoms reported Past Medical History (General) - Patient Medical History Hx Seizures: No Hx Stroke: No Hx Dementia: No Hx Asthma: No Hx of COPD: Yes Hx Cardiac Disorders: Yes Hx Congestive Heart Failure: No Hx Pacemaker: No Hx Hypertension: Yes Hx Thyroid Disease: No Hx Diabetes: Yes Hx Gastroesophageal Reflux: Yes Hx Renal Disease: No 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 Hx of HIV: No Hx Hepatitis C: No Hx MRSA: No - Vaccination History Hx Tetanus, Diphtheria Vaccination: Yes Hx Influenza Vaccination: No Hx Pneumococcal Vaccination: Yes - Social History Hx Tobacco Use: Yes Hx Chewing Tobacco Use: No Hx Alcohol Use: Yes Hx Substance Use: No Hx Substance Use Treatment: No Hx Depression: No Hx Physical Abuse: No Hx Emotional Abuse: No Hx Suspected Abuse: No - Female History Patient : No Family Medical History - Family History Mother Living Status: Hx Cardiac Disease: Yes - brother Hx Family Diabetes: Yes - mom Brother Family History: Unknown Name: Eliezer Braden Age (years): 60 Living Status: Still Living Hx Family Asthma: No Hx Family Congestive Heart Failure: No Hx Family Hypertension: Yes Hx Family Stroke: No Hx Cardiac Disease: No Hx Family Diabetes: Yes Hx Family Cancer: No Physical Exam - Physical Exam General Appearance: Alert, Anxious Eye Exam: bilateral normal ENT Exam: normal ENT inspection Neck: non-tender, full range of motion Respiratory: chest non-tender, normal breath sounds, no respiratory distress, wheezing Cardiovascular/Chest: normal peripheral pulses, regular rate, rhythm, no edema Gastrointestinal/Abdominal: normal bowel sounds, non tender, soft Extremity: normal range of motion, non-tender, normal inspection Neurologic: alert, normal mood/affect, oriented x 3 Skin Exam: normal color, warm/dry Lymphatic: no adenopathy Progress - EKG/XRAY/CT EKG: Atrial, Fibrillation, no ST T wave changes Comments: rate 84, QRS 69, QTc 408 Departure - Departure Clinical Impression: Atrial fibrillation and flutter Disposition: Discharge to Home or Self Care Departure Forms: ED Discharge - Pt. Copy, Patient Portal Self Enrollment Referrals: Felipe Escudero MD [Primary Care Provider] - 1-2 Weeks Prescriptions: Apixaban [Eliquis] 5 mg PO BID #30 tab Digoxin 0.25 mg PO QAM #30 tab Home Medications: Ambulatory Orders Aspirin [Aspirin Adult Low Dose] 81 mg PO DAILY 06/08/16 Glipizide [Glipizide Xl] 2.5 mg PO BID 06/08/16 Albuterol Sulfate Nebs [Proventil Nebs] 2.5 mg INH Q4H PRN 07/06/17 Amlodipine Besylate 10 mg PO DAILY 02/23/18 Lisinopril & Hydrochlorothiazi [Lisinopril/Hctz 20-25 mg] 1 tab PO DAILY 02/23/18 Zjdnm-1-Wcrn Ethyl Esters [Drqcg-0-Zdcw Ethyl Esters 1 gm] 1 cap PO BID 02/23/18 Potassium Chloride [Micro-K] 10 meq PO DAILY 02/23/18 Propranolol HCl [Propranolol HCl ER] 60 mg PO DAILY 02/23/18 Tamsulosin [Flomax] 0.4 mg PO QD 02/23/18 Dulaglutide [Trulicity] 1.5 mg SC MONTHLY 02/25/18 Albuterol Sulfate Nebs [Proventil Nebs] 2.5 mg INH Q4HR #60 vial 02/28/18 Bisacodyl [Dulcolax Tab] 5 mg PO DAILY PRN tab 02/28/18 Budesonide-Formoterol Fumarate [Symbicort 160-4.5 Mcg/Act] 2 inh IN DAILY #1 02/28/18 Methylprednisolone [Medrol Dose Siva] 4 mg PO DAILY 6 Days #21 tab 02/28/18 guaiFENesin ER TAB [Mucinex Tab] 1,200 mg PO BID tab 02/28/18 levoFLOXacin [Levaquin] 500 mg PO DAILY #4 tab 02/28/18 Apixaban [Eliquis] 5 mg PO BID #30 tab 08/04/18 Digoxin 0.25 mg PO QAM #30 tab 08/04/18
--- NOTE | 2018-08-04 17:40 | RAD ---
EXAM DESCRIPTION: Chest,1 View CLINICAL HISTORY: 62 years Male cough COMPARISON: 02/27/2018 FINDINGS: Cardiac enlargement. Prominence of the central pulmonary vasculature without henrietta pulmonary edema. Blunting of the left costophrenic angle which is similar to the previous examination and appears unchanged. IMPRESSION: Stable appearance of the chest Electronically signed by: Temitope Young MD 08/04/2018 5:38 PM [facility]
[2018-08-04] MEDS ORDERED: DIGOXIN 0.25 MG TAB PO ONE (18:43)
[2018-08-04] MEDS ORDERED: APIXABAN 2.5 MG TAB PO ONE (18:45)
[2018-08-04 18:48] VITALS: BP 119/62; O2SAT 91
== END 2018-08-04 19:05 | disposition home or self-care (01) ==
LOC: ER 16:53
DX: I48.91 Unspecified atrial fibrillation (principal); I48.92 Unspecified atrial flutter; J44.9 Chronic obstructive pulmonary disease, unspecified; E11.9 Type 2 diabetes mellitus without complications; I10 Essential (primary) hypertension; Z79.899 Other long term (current) drug therapy; Z85.22 Personal history of malignant neoplasm of nasal cavities, middle ear, and accessory sinuses; Z87.891 Personal history of nicotine dependence; Z79.82 Long term (current) use of aspirin; Z88.0 Allergy status to penicillin; Z88.5 Allergy status to narcotic agent
CPT/HCPCS: 36415; 71045; 80053; 84484; 85025; 93005; 94640; J7620

== ENCOUNTER 2018-08-07 19:44 | Emergency (ER) | payer MEDICARE, MEDICAID ==
[2018-08-07] MEDS ORDERED: ASPIRIN (CHEWABLE) 81 MG TAB PO ONE (20:04)
[2018-08-07] MEDS ORDERED: NITROGLYCERIN 2% 1 GM UD TOP ONE (20:04)
--- NOTE | 2018-08-07 20:07 | ED.PDOC ---
History of Present Illness - General Chief Complaint: Cardiovascular Problem Stated Complaint: chest pain Time Seen by Provider: 08/07/18 19:57 Source: patient Exam Limitations: no limitations - History of Present Illness Initial Comments: Patient present with chest pain for one hour. Sudden onset, upper sternal with radiation to both sides of the chest, was constant but now has resolved, was burning in nature. Denies previous episodes. No cardiac history. No COPD. Stopped smoking 25 years ago. Denies cholesterol medications. His brother, sister, and mother all had heart attacks. Denies history of bipedal edema. NO cough nor dyspnea. No orthopnea. No other complaints. Timing/Duration: 1 hour Severity: mild Improving Factors: nothing Worsening Factors: nothing Associated Symptoms: denies symptoms Allergies/Adverse Reactions: Allergies Codeine Allergy (Verified 02/25/18 01:06) Penicillins Allergy (Verified 02/25/18 01:06) Home Medications: Ambulatory Orders Aspirin [Aspirin Adult Low Dose] 81 mg PO DAILY 06/08/16 Glipizide [Glipizide Xl] 2.5 mg PO BID 06/08/16 Albuterol Sulfate Nebs [Proventil Nebs] 2.5 mg INH Q4H PRN 07/06/17 Amlodipine Besylate 10 mg PO DAILY 02/23/18 Lisinopril & Hydrochlorothiazi [Lisinopril/Hctz 20-25 mg] 1 tab PO DAILY 02/23/18 Bxwqi-6-Ftdc Ethyl Esters [Iuslj-4-Zeuu Ethyl Esters 1 gm] 1 cap PO BID 02/23/18 Potassium Chloride [Micro-K] 10 meq PO DAILY 02/23/18 Propranolol HCl [Propranolol HCl ER] 60 mg PO DAILY 02/23/18 Tamsulosin [Flomax] 0.4 mg PO QD 02/23/18 Dulaglutide [Trulicity] 1.5 mg SC MONTHLY 02/25/18 Albuterol Sulfate Nebs [Proventil Nebs] 2.5 mg INH Q4HR #60 vial 02/28/18 Bisacodyl [Dulcolax Tab] 5 mg PO DAILY PRN tab 02/28/18 Budesonide-Formoterol Fumarate [Symbicort 160-4.5 Mcg/Act] 2 inh IN DAILY #1 02/28/18 Methylprednisolone [Medrol Dose Siva] 4 mg PO DAILY 6 Days #21 tab 02/28/18 guaiFENesin ER TAB [Mucinex Tab] 1,200 mg PO BID tab 02/28/18 levoFLOXacin [Levaquin] 500 mg PO DAILY #4 tab 02/28/18 Apixaban [Eliquis] 5 mg PO BID #30 tab 08/04/18 Digoxin 0.25 mg PO QAM #30 tab 08/04/18 Omeprazole 20 mg PO QAM #30 cap 08/07/18 Review of Systems - Review of Systems Constitutional: States: no symptoms reported EENTM: States: no symptoms reported Respiratory: States: no symptoms reported Cardiology: States: see HPI Gastrointestinal/Abdominal: States: no symptoms reported Genitourinary: States: no symptoms reported Musculoskeletal: States: no symptoms reported Skin: States: no symptoms reported Neurological: States: no symptoms reported Endocrine: States: no symptoms reported Hematologic/Lymphatic: States: no symptoms reported Past Medical History (General) - Patient Medical History Hx Seizures: No Hx Stroke: No Hx Dementia: No Hx Asthma: No Hx of COPD: Yes Hx Cardiac Disorders: Yes Hx Congestive Heart Failure: No Hx Pacemaker: No Hx Hypertension: Yes Hx Thyroid Disease: No Hx Diabetes: Yes Hx Gastroesophageal Reflux: Yes Hx Renal Disease: No 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 Hx of HIV: No Hx Hepatitis C: No Hx MRSA: No - Vaccination History Hx Tetanus, Diphtheria Vaccination: Yes Hx Influenza Vaccination: No Hx Pneumococcal Vaccination: Yes - Social History Hx Tobacco Use: Yes Hx Chewing Tobacco Use: No Hx Alcohol Use: Yes Hx Substance Use: No Hx Substance Use Treatment: No Hx Depression: No Hx Physical Abuse: No Hx Emotional Abuse: No Hx Suspected Abuse: No - Female History Patient : No Family Medical History - Family History Mother Living Status: Hx Cardiac Disease: Yes - brother Hx Family Diabetes: Yes - mom Brother Family History: Unknown Name: Eliezer Braden Age (years): 60 Living Status: Still Living Hx Family Asthma: No Hx Family Congestive Heart Failure: No Hx Family Hypertension: Yes Hx Family Stroke: No Hx Cardiac Disease: No Hx Family Diabetes: Yes Hx Family Cancer: No Physical Exam - Physical Exam General Appearance: Alert Eye Exam: bilateral normal Ears, Nose, Throat: normal ENT inspection Neck: non-tender, full range of motion, supple Respiratory: chest non-tender, lungs clear, normal breath sounds Cardiovascular/Chest: normal peripheral pulses, regular rate, rhythm, no edema Gastrointestinal/Abdominal: normal bowel sounds, non tender, soft Back Exam: normal inspection, no CVA tenderness Extremity: normal range of motion, non-tender, normal inspection Neurologic: no motor/sensory deficits, alert, normal mood/affect, oriented x 3 Skin Exam: normal color Lymphatic: no adenopathy Progress - Progress Progress: 08/07/18 21:53 Laboratory Tests 08/07/18 08/07/18 08/07/18 20:25 20:25 20:25 WBC 7.8 RBC 4.55 L Hgb 15.1 Hct 44.4 MCV 97.5 H MCH 33.1 H MCHC 33.9 RDW 13.9 Plt Count 167 MPV 7.7 Absolute Neuts (auto) 4.70 Absolute Lymphs (auto) 2.20 Absolute Monos (auto) 0.80 Absolute Eos (auto) 0.20 Absolute Basos (auto) 0.10 Neutrophils % 59.9 Lymphocytes % 27.5 Monocytes % 9.6 H Eosinophils % 2.1 Basophils % 0.9 PT 10.8 INR 1.08 PTT (SP) 28.5 Sodium 138 Potassium 4.2 Chloride 102 Carbon Dioxide 29 Anion Gap 11.2 L BUN 20 H Creatinine 0.88 BUN/Creatinine Ratio 22.7 H Random Glucose 125 H Serum Osmolality 279.8 Calcium 9.3 Total Bilirubin 0.4 AST 26 ALT 42 Alkaline Phosphatase 57 Creatine Kinase 44 CK-MB (CK-2) 1.2 CK-MB (CK-2) % Not Reportable Troponin I < 0.02 B-Natriuretic Peptide 23.1 Serum Total Protein 7.1 Albumin 4.1 Globulin 3.0 Albumin/Globulin Ratio 1.4 After speaking with the patient, it seemed apparent that the pain was GI in origin. It occurred just after he ate and he has had a history of acid reflux. He has only one risk factor for CAD. He was given a GI cocktail. Patient remained symptom free. EKG showed NSR with no ST changes nor T wave inversions. No LBBB. Troponin x two negative. E.R. warnings given. Care instructions given. Questions were elicited and answered. The patient voiced understanding and agreement with the plan. 08/07/18 23:13 Departure - Departure Clinical Impression: Chest pain in adult, Esophagitis Disposition: Discharge to Home or Self Care Condition: Good Departure Forms: ED Discharge - Pt. Copy, Patient Portal Self Enrollment Instructions: DI for Chest Pain Diet: low fat, low cholesterol Activity: increase activity as tolerated Referrals: Felipe Escudero MD [Primary Care Provider] - 1-2 Weeks Prescriptions: Omeprazole 20 mg PO QAM #30 cap Home Medications: Ambulatory Orders Aspirin [Aspirin Adult Low Dose] 81 mg PO DAILY 06/08/16 Glipizide [Glipizide Xl] 2.5 mg PO BID 06/08/16 Albuterol Sulfate Nebs [Proventil Nebs] 2.5 mg INH Q4H PRN 07/06/17 Amlodipine Besylate 10 mg PO DAILY 02/23/18 Lisinopril & Hydrochlorothiazi [Lisinopril/Hctz 20-25 mg] 1 tab PO DAILY 02/23/18 Uheyd-6-Tvas Ethyl Esters [Pfmrs-7-Kmeg Ethyl Esters 1 gm] 1 cap PO BID 02/23/18 Potassium Chloride [Micro-K] 10 meq PO DAILY 02/23/18 Propranolol HCl [Propranolol HCl ER] 60 mg PO DAILY 02/23/18 Tamsulosin [Flomax] 0.4 mg PO QD 02/23/18 Dulaglutide [Trulicity] 1.5 mg SC MONTHLY 02/25/18 Albuterol Sulfate Nebs [Proventil Nebs] 2.5 mg INH Q4HR #60 vial 02/28/18 Bisacodyl [Dulcolax Tab] 5 mg PO DAILY PRN tab 02/28/18 Budesonide-Formoterol Fumarate [Symbicort 160-4.5 Mcg/Act] 2 inh IN DAILY #1 02/28/18 Methylprednisolone [Medrol Dose Siva] 4 mg PO DAILY 6 Days #21 tab 02/28/18 guaiFENesin ER TAB [Mucinex Tab] 1,200 mg PO BID tab 02/28/18 levoFLOXacin [Levaquin] 500 mg PO DAILY #4 tab 02/28/18 Apixaban [Eliquis] 5 mg PO BID #30 tab 08/04/18 Digoxin 0.25 mg PO QAM #30 tab 08/04/18 Omeprazole 20 mg PO QAM #30 cap 08/07/18 Additional Instructions: Try taking Prilosec every morning as directed. See your regular doctor this week regarding cardiac stress testing. Return to the E.R. if the pain returns or for new symptoms.
--- NOTE | 2018-08-07 20:27 | RAD ---
EXAM DESCRIPTION: AP view of the chest CLINICAL HISTORY:62 years Male, chest pain Comparison: August 04, 2018 FINDINGS: The cardiac silhouette is enlarged but stable. Central pulmonary vascular congestion remains. No focal pulmonary opacities. No definite pleural abnormalities. IMPRESSION: No acute cardiopulmonary disease and no significant change from prior study. Electronically signed by: Glen Sood DO 08/07/2018 8:26 PM [employer]DER
[2018-08-07] MEDS ORDERED: ALUM & MAG HYDROX-SIMETHICONE 30 ML, LIDOCAINE VISCOUS 2% 15 ML PO ONE ×2 (21:52)
[2018-08-07] MEDS ORDERED: ALUM & MAG HYDROX-SIMETHICONE 30 ML UD ONE (22:15)
[2018-08-07] MEDS ORDERED: LIDOCAINE HCL 2% (MOUTH-THROAT) 15 ML UD ONE (22:15)
[2018-08-07 23:40] VITALS: BP 104/64; O2SAT 94
== END 2018-08-07 23:40 | disposition home or self-care (01) ==
LOC: ER 19:44
DX: R07.2 Precordial pain (principal); K20.9 Esophagitis, unspecified; I51.9 Heart disease, unspecified; I10 Essential (primary) hypertension; E11.9 Type 2 diabetes mellitus without complications; K21.9 Gastro-esophageal reflux disease without esophagitis; Z85.89 Personal history of malignant neoplasm of other organs and systems; Z79.82 Long term (current) use of aspirin; Z79.899 Other long term (current) drug therapy; Z88.5 Allergy status to narcotic agent; Z88.0 Allergy status to penicillin; Z87.891 Personal history of nicotine dependence

== ENCOUNTER 2018-09-06 17:35 | Emergency (ER) | payer MEDICARE, MEDICAID ==
[2018-09-06 17:52] VITALS: TEMP 98.6
[2018-09-06] MEDS ORDERED: methylPREDNISolone SODIUM SUC 125 MG/2 ML VIAL IV ONE (18:09)
[2018-09-06] MEDS ORDERED: IPRATROPIUM/ALBUTEROL 3 ML VIAL NEB ONE (18:09)
--- NOTE | 2018-09-06 19:03 | RAD ---
EXAM DESCRIPTION: Chest,2 Views CLINICAL HISTORY: 62 years Male SOB COMPARISON: None TECHNIQUE: PA and lateral views of the chest are obtained. FINDINGS: Heart: The heart is mildly enlarged. Vasculature: The aorta is unremarkable. The pulmonary vascularity is normal. Mediastinum: Unremarkable otherwise. No evidence of mass or adenopathy. Lungs: There is no focal consolidation in the lungs, allowing for superimposed pannus/skinfolds. Pleural spaces: There are no pleural effusions. There are no pneumothoraces. Osseous structures: There is no evidence of acute fracture, osseous destruction or osteoblastic lesions. There are diffuse enthesopathic changes including a rolling pattern of ossification in the thoracic spine consistent with diffuse idiopathic skeletal hyperostosis (DISH). Tubes and catheters: None. Upper abdomen: No acute findings. IMPRESSION: Mild cardiomegaly without gross congestive heart failure. [] Remainder of findings as described above. Electronically signed by: Sera Ramirez MD 09/06/2018 7:02 PM VASCULAR NEUROLOGIST
--- NOTE | 2018-09-06 19:42 | ED.PDOC ---
History of Present Illness - General Chief Complaint: Respiratory Problem Stated Complaint: shortness of breath Time Seen by Provider: 09/06/18 18:01 Source: patient Exam Limitations: no limitations - History of Present Illness Initial Comments: C/O 2 DAY HX OF PROGRESSIVE SOB WITH NON PRODUCTIVE COUGH. HX O2 AND STEROID DEPENDENT COPD. Severity: moderate Improving Factors: nothing Worsening Factors: nothing Allergies/Adverse Reactions: Allergies Codeine Allergy (Verified 09/06/18 17:52) Penicillins Allergy (Verified 09/06/18 17:52) Home Medications: Ambulatory Orders Aspirin [Aspirin Adult Low Dose] 81 mg PO DAILY 06/08/16 Glipizide [Glipizide Xl] 2.5 mg PO BID 06/08/16 Albuterol Sulfate Nebs [Proventil Nebs] 2.5 mg INH Q4H PRN 07/06/17 Amlodipine Besylate 10 mg PO DAILY 02/23/18 Lisinopril & Hydrochlorothiazi [Lisinopril/Hctz 20-25 mg] 1 tab PO DAILY 02/23/18 Bnmul-9-Vnvt Ethyl Esters [Ezvdf-3-Tlde Ethyl Esters 1 gm] 1 cap PO BID 02/23/18 Potassium Chloride [Micro-K] 10 meq PO DAILY 02/23/18 Propranolol HCl [Propranolol HCl ER] 60 mg PO DAILY 02/23/18 Tamsulosin [Flomax] 0.4 mg PO QD 02/23/18 Dulaglutide [Trulicity] 1.5 mg SC MONTHLY 02/25/18 Albuterol Sulfate Nebs [Proventil Nebs] 2.5 mg INH Q4HR #60 vial 02/28/18 Bisacodyl [Dulcolax Tab] 5 mg PO DAILY PRN tab 02/28/18 Budesonide-Formoterol Fumarate [Symbicort 160-4.5 Mcg/Act] 2 inh IN DAILY #1 02/28/18 Methylprednisolone [Medrol Dose Siva] 4 mg PO DAILY 6 Days #21 tab 02/28/18 guaiFENesin ER TAB [Mucinex Tab] 1,200 mg PO BID tab 02/28/18 levoFLOXacin [Levaquin] 500 mg PO DAILY #4 tab 02/28/18 Apixaban [Eliquis] 5 mg PO BID #30 tab 08/04/18 Digoxin 0.25 mg PO QAM #30 tab 08/04/18 Omeprazole 20 mg PO QAM #30 cap 08/07/18 Doxycycline (Monohydrate) [Doxycycline Monohydrate] 100 mg PO BID #20 cap 09/06/18 Prednisone [Deltasone] 20 mg PO DAILY #5 tab 09/06/18 Review of Systems - Review of Systems Constitutional: Denies: chills, fever EENTM: States: no symptoms reported Respiratory: States: cough, short of breath, wheezing Cardiology: States: chest pain. Denies: palpitations, syncope Gastrointestinal/Abdominal: Denies: abdominal pain, nausea, vomiting Genitourinary: States: no symptoms reported Musculoskeletal: States: no symptoms reported Skin: States: other - NO DIAPHORESIS Neurological: States: no symptoms reported Endocrine: States: no symptoms reported Hematologic/Lymphatic: States: no symptoms reported Past Medical History (General) - Patient Medical History Hx Seizures: No Hx Stroke: No Hx Dementia: No Hx Asthma: No Hx of COPD: Yes Hx Cardiac Disorders: Yes Hx Congestive Heart Failure: No Hx Pacemaker: No Hx Hypertension: Yes Hx Thyroid Disease: No Hx Diabetes: Yes Hx Gastroesophageal Reflux: Yes Hx Renal Disease: No 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 Hx of HIV: No Hx Hepatitis C: No Hx MRSA: No Surgical History: other - Vaccination History Hx Tetanus, Diphtheria Vaccination: Yes Hx Influenza Vaccination: No Hx Pneumococcal Vaccination: Yes - Social History Hx Tobacco Use: Yes Hx Chewing Tobacco Use: No Hx Alcohol Use: Yes Hx Substance Use: No Hx Substance Use Treatment: No Hx Depression: No Hx Physical Abuse: No Hx Emotional Abuse: No Hx Suspected Abuse: No - Female History Patient : No Family Medical History - Family History Mother Living Status: Hx Cardiac Disease: Yes - brother Hx Family Diabetes: Yes - mom Brother Family History: Unknown Name: Eliezer Braden Age (years): 60 Living Status: Still Living Hx Family Asthma: No Hx Family Congestive Heart Failure: No Hx Family Hypertension: Yes Hx Family Stroke: No Hx Cardiac Disease: No Hx Family Diabetes: Yes Hx Family Cancer: No Physical Exam - Physical Exam General Appearance: Alert, No apparent distress, Obese Eye Exam: bilateral normal Ears, Nose, Throat: hearing grossly normal, normal ENT inspection Neck: full range of motion, supple, normal inspection Respiratory: other - DIMINISHED NILE, NO WHEEZES, NO RALES, NO RHONCHI. SATS 95% ON RA (NL) Cardiovascular/Chest: regular rate, rhythm, no murmur Gastrointestinal/Abdominal: normal bowel sounds, non tender, soft, no organomegaly Back Exam: normal inspection, no CVA tenderness, no vertebral tenderness Extremity: normal range of motion, non-tender, normal inspection Neurologic: alert, normal mood/affect Skin Exam: normal color, warm/dry Lymphatic: no adenopathy Progress - Progress Progress: 09/06/18 19:43 PT STATES BREATHING SOME BETTER BUT STILL NOT NL. 09/06/18 22:25 PT STABLE, SATS 92% ON RA, HAS O2 AT HOME. NO RESP DISTRESS, NO RETRACTIONS. Departure - Departure Clinical Impression: Acute bronchitis Qualifiers: Bronchitis organism: unspecified organism Qualified Code(s): J20.9 - Acute bronchitis, unspecified COPD (chronic obstructive pulmonary disease) Qualifiers: COPD type: COPD with acute exacerbation Qualified Code(s): J44.1 - Chronic obstructive pulmonary disease with (acute) exacerbation Time of Disposition: 22:27 Disposition: Discharge to Home or Self Care Condition: Good Departure Forms: ED Discharge - Pt. Copy, Patient Portal Self Enrollment Instructions: Exacerbation of COPD, Acute Bronchitis, Adult (DC) Referrals: Felipe Escudero MD [Primary Care Provider] - 1-2 Weeks Prescriptions: Doxycycline (Monohydrate) [Doxycycline Monohydrate] 100 mg PO BID #20 cap Prednisone [Deltasone] 20 mg PO DAILY #5 tab Home Medications: Ambulatory Orders Aspirin [Aspirin Adult Low Dose] 81 mg PO DAILY 06/08/16 Glipizide [Glipizide Xl] 2.5 mg PO BID 06/08/16 Albuterol Sulfate Nebs [Proventil Nebs] 2.5 mg INH Q4H PRN 07/06/17 Amlodipine Besylate 10 mg PO DAILY 02/23/18 Lisinopril & Hydrochlorothiazi [Lisinopril/Hctz 20-25 mg] 1 tab PO DAILY 02/23/18 Jlkyk-2-Uzvk Ethyl Esters [Djosh-2-Sail Ethyl Esters 1 gm] 1 cap PO BID 02/23/18 Potassium Chloride [Micro-K] 10 meq PO DAILY 02/23/18 Propranolol HCl [Propranolol HCl ER] 60 mg PO DAILY 02/23/18 Tamsulosin [Flomax] 0.4 mg PO QD 02/23/18 Dulaglutide [Trulicity] 1.5 mg SC MONTHLY 02/25/18 Albuterol Sulfate Nebs [Proventil Nebs] 2.5 mg INH Q4HR #60 vial 02/28/18 Bisacodyl [Dulcolax Tab] 5 mg PO DAILY PRN tab 02/28/18 Budesonide-Formoterol Fumarate [Symbicort 160-4.5 Mcg/Act] 2 inh IN DAILY #1 02/28/18 Methylprednisolone [Medrol Dose Siva] 4 mg PO DAILY 6 Days #21 tab 02/28/18 guaiFENesin ER TAB [Mucinex Tab] 1,200 mg PO BID tab 02/28/18 levoFLOXacin [Levaquin] 500 mg PO DAILY #4 tab 02/28/18 Apixaban [Eliquis] 5 mg PO BID #30 tab 08/04/18 Digoxin 0.25 mg PO QAM #30 tab 08/04/18 Omeprazole 20 mg PO QAM #30 cap 08/07/18 Doxycycline (Monohydrate) [Doxycycline Monohydrate] 100 mg PO BID #20 cap 09/06/18 Prednisone [Deltasone] 20 mg PO DAILY #5 tab 09/06/18 Additional Instructions: USE NEBULIZER 4-6 TIMES DAILY
[2018-09-06] MEDS ORDERED: ALBUTEROL SULFATE 2.5 MG/3 ML VIAL NEB ONE ×2 (19:43→20:36)
[2018-09-06] MEDS ORDERED: cefTRIAXone SODIUM 1 GM in SODIUM CHL 0.9% 50ML MIN-BAG+ 50 ML IVPB ONE (22:34)
[2018-09-06] MEDS ORDERED: SODIUM CHL 0.9% 50ML MIN-BAG+ 50 ML IVPB ONE (22:39)
[2018-09-06] MEDS ORDERED: cefTRIAXone SODIUM 1 GM VIAL ONE (22:39)
[2018-09-06 23:37] VITALS: BP 121/58; O2SAT 93
== END 2018-09-06 23:37 | disposition home or self-care (01) ==
LOC: ER 17:35
DX: J44.1 Chronic obstructive pulmonary disease with (acute) exacerbation (principal); J20.9 Acute bronchitis, unspecified; I10 Essential (primary) hypertension; E11.9 Type 2 diabetes mellitus without complications; K21.9 Gastro-esophageal reflux disease without esophagitis; I51.9 Heart disease, unspecified; Z99.81 Dependence on supplemental oxygen; Z87.891 Personal history of nicotine dependence; Z79.899 Other long term (current) drug therapy; Z79.82 Long term (current) use of aspirin; Z88.5 Allergy status to narcotic agent; Z88.0 Allergy status to penicillin
CPT/HCPCS: 36415; 71046; 80053; 83880; 84484; 85025; 93005; 94640; J0696; J2930; J7050; J7611; J7620

== ENCOUNTER 2018-10-03 19:33 | Emergency (ER) | payer MEDICARE, MEDICAID ==
--- NOTE | 2018-10-03 20:25 | ED.PDOC ---
History of Present Illness - General Chief Complaint: GI Problem Stated Complaint: rectal bleeding Time Seen by Provider: 10/03/18 20:06 Information Source: patient Exam Limitations: no limitations - History of Present Illness Initial Comments: Jose Francisco Braden 62 y/o male stated that he had 2 episodes of bleeding /rectum after moving bowels today.No abdominal pain,no pain on defacation,no hematemesis. Abdominal Pain Onset Location: other - NO ABDOMINAL PAIN Pain Radiation: other - see hpi Improving Factors: nothing Worsening Factors: other - bowel movement Associated Symptoms: denies symptoms Review of Systems - Review of Systems Constitutional: States: no symptoms reported EENTM: States: no symptoms reported Respiratory: States: no symptoms reported Cardiology: States: no symptoms reported Gastrointestinal/Abdominal: States: see HPI Genitourinary: States: no symptoms reported Musculoskeletal: States: no symptoms reported Past Medical History (General) - Patient Medical History Hx Seizures: No Hx Stroke: No Hx Dementia: No Hx Asthma: No Hx of COPD: Yes Hx Cardiac Disorders: Yes Hx Congestive Heart Failure: No Hx Pacemaker: No Hx Hypertension: Yes Hx Thyroid Disease: No Hx Diabetes: Yes Hx Gastroesophageal Reflux: Yes Hx Renal Disease: No 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 Hx of HIV: No Hx Hepatitis C: No Hx MRSA: No Surgical History: tonsillectomy - Vaccination History Hx Tetanus, Diphtheria Vaccination: Yes Hx Influenza Vaccination: No Hx Pneumococcal Vaccination: Yes - Social History Hx Tobacco Use: Yes Hx Chewing Tobacco Use: No Hx Alcohol Use: Yes Hx Substance Use: No Hx Substance Use Treatment: No Hx Depression: No Hx Physical Abuse: No Hx Emotional Abuse: No Hx Suspected Abuse: No - Female History Patient : No Family Medical History - Family History Mother Living Status: Hx Cardiac Disease: Yes - brother Hx Family Diabetes: Yes - mom Brother Family History: Unknown Name: Eliezer Braden Age (years): 60 Living Status: Still Living Hx Family Asthma: No Hx Family Congestive Heart Failure: No Hx Family Hypertension: Yes Hx Family Stroke: No Hx Cardiac Disease: No Hx Family Diabetes: Yes Hx Family Cancer: No Physical Exam - Physical Exam General Appearance: Alert, Comfortable, No apparent distress Eyes, Ears, Nose, Throat Exam: normal ENT inspection Neck: supple, normal inspection Respiratory: lungs clear, normal breath sounds, no respiratory distress Cardiovascular/Chest: normal peripheral pulses, regular rate, rhythm, no murmur Peripheral Pulses: No deficit Gastrointestinal/Abdominal: soft, no organomegaly Male Genitalia: normal genitalia, normal prostate Rectal Exam: normal rectal tone, blood streaked stool Back Exam: no CVA tenderness, no vertebral tenderness Extremity: no pedal edema, no calf tenderness Neurologic: alert, oriented x 3 Skin Exam: normal color, warm/dry Progress - Progress Progress: 10/03/18 20:28 Vital Signs - 8 hr 10/03/18 20:03 Temperature 98.0 F Pulse Rate [ 75 Right] Respiratory 20 Rate Blood Pressure 134/71 [Left Arm] O2 Sat by Pulse 92 L Oximetry - Results/Orders Results/Orders: Laboratory Tests 10/03/18 10/03/18 10/03/18 20:34 20:55 20:55 WBC 6.7 RBC 4.21 L Hgb 13.8 L Hct 41.3 L MCV 97.9 H MCH 32.8 H MCHC 33.5 RDW 14.4 Plt Count 142 MPV 7.5 Absolute Neuts (auto) 3.40 Absolute Lymphs (auto) 2.40 Absolute Monos (auto) 0.70 Absolute Eos (auto) 0.20 Absolute Basos (auto) 0.00 Neutrophils % 51.1 Lymphocytes % 35.5 Monocytes % 9.8 H Eosinophils % 2.9 Basophils % 0.7 Sodium 136 Potassium 3.9 Chloride 97 L Carbon Dioxide 29 Anion Gap 13.9 BUN 20 H Creatinine 0.99 BUN/Creatinine Ratio 20.2 H Random Glucose 212 H Serum Osmolality 280.9 Calcium 9.0 Total Bilirubin 0.5 AST 22 ALT 34 Alkaline Phosphatase 70 Serum Total Protein 7.1 Albumin 4.0 Globulin 3.1 Albumin/Globulin Ratio 1.3 Stool Occult Blood Positive Discuss test result with patient and recommended transfer to [facility] for GI specialist for colonoscopy evaluation but declined prefers his primary Md in [place] to do the procedure stated he will see him tomorrow already called him up today - EKG/XRAY/CT XRAY: chest - no acute abnormalities CT Ordered: Yes - no acute abnormalities Departure - Departure Clinical Impression: Rectal bleeding Time of Disposition: 21:48 Disposition: Discharge to Home or Self Care Condition: Fair Departure Forms: ED Discharge - Pt. Copy, Patient Portal Self Enrollment Instructions: Bloody Stools, Adult (DC), Bloody Stools Referrals: Felipe Escudero MD [Primary Care Provider] - 1-2 Weeks Home Medications: Ambulatory Orders Aspirin [Aspirin Adult Low Dose] 81 mg PO DAILY 06/08/16 Glipizide [Glipizide Xl] 2.5 mg PO BID 06/08/16 Albuterol Sulfate Nebs [Proventil Nebs] 2.5 mg INH Q4H PRN 07/06/17 Amlodipine Besylate 10 mg PO DAILY 02/23/18 Lisinopril & Hydrochlorothiazi [Lisinopril/Hctz 20-25 mg] 1 tab PO DAILY 02/23/18 Tbhcy-4-Xrnr Ethyl Esters [Icelf-8-Kpdi Ethyl Esters 1 gm] 1 cap PO BID 02/23/18 Potassium Chloride [Micro-K] 10 meq PO DAILY 02/23/18 Propranolol HCl [Propranolol HCl ER] 60 mg PO DAILY 02/23/18 Tamsulosin [Flomax] 0.4 mg PO QD 02/23/18 Dulaglutide [Trulicity] 1.5 mg SC MONTHLY 02/25/18 Albuterol Sulfate Nebs [Proventil Nebs] 2.5 mg INH Q4HR #60 vial 02/28/18 Bisacodyl [Dulcolax Tab] 5 mg PO DAILY PRN tab 02/28/18 Budesonide-Formoterol Fumarate [Symbicort 160-4.5 Mcg/Act] 2 inh IN DAILY #1 02/28/18 Methylprednisolone [Medrol Dose Isva] 4 mg PO DAILY 6 Days #21 tab 02/28/18 guaiFENesin ER TAB [Mucinex Tab] 1,200 mg PO BID tab 02/28/18 levoFLOXacin [Levaquin] 500 mg PO DAILY #4 tab 02/28/18 Apixaban [Eliquis] 5 mg PO BID #30 tab 08/04/18 Digoxin 0.25 mg PO QAM #30 tab 08/04/18 Omeprazole 20 mg PO QAM #30 cap 08/07/18 Doxycycline (Monohydrate) [Doxycycline Monohydrate] 100 mg PO BID #20 cap 09/06/18 Prednisone [Deltasone] 20 mg PO DAILY #5 tab 09/06/18 Additional Instructions: Return to EMERGENCY ROOM if symptoms worsens;Keep appointment with primary Md in am 04 Oct 2018
--- NOTE | 2018-10-03 21:19 | RAD ---
EXAM DESCRIPTION: Chest,1 View CLINICAL HISTORY:62 years Male, sob Comparison: September 06, 2018 FINDINGS: No focal lung consolidation. No pleural effusion. No pneumothorax. Cardiac and mediastinal silhouette is unremarkable. No acute osseous abnormality. Soft tissues are unremarkable. IMPRESSION: No acute findings. No focal lung consolidation. Electronically signed by: Ky Barry MD 10/03/2018 9:17 PM [employer] [employer] [employer]
--- NOTE | 2018-10-03 21:34 | CT ---
EXAM DESCRIPTION: Abdomen/Pelvis w/o Contrast CLINICAL HISTORY: 62 years Male, rectal bleeding Comparison: 01/30/2017 and 04/15/2015 TECHNIQUE: Contiguous axial images of the abdomen and pelvis were obtained without IV contrast followed by reconstruction images. This exam was performed according to our departmental dose-optimization program, which includes automated exposure control, adjustment of the mA and/or kV according to patient size and/or use of iterative reconstruction technique. FINDINGS: Lung bases: Mild left lung base subsegmental atelectasis. Liver: Incompletely characterized subcentimeter hypodense focus at the left hepatic lobe (series 2 image 45) which appears stable when compared to previous study dating back to 04/15/2015. Gallbladder/Bile ducts: Contracted gallbladder. No intra or extrahepatic biliary ductal dilatation. Spleen: Within normal limits. Pancreas: Within normal limits. Adrenal glands: Within normal limits. Kidneys/Bladder: Two punctate nonobstructing renal stones at the right interpolar region. No hydronephrosis. Suggestion of a right parapelvic cyst. Symmetrical nonspecific perirenal fat stranding. Partially distended bladder without gross finding. GI tract: No bowel obstruction or active inflammatory process. The appendix is within normal limits. Prostate gland: Appears prominent in size. Central prostatic ossifications are noted. Vascular structures: Not well evaluated in this unenhanced study. Nonaneurysmal abdominal aorta. Free fluid: No free fluid. Lymph nodes: No lymphadenopathy. Soft tissues: Within normal limits Bones: No acute osseous finding. IMPRESSION: 1. No acute abdominal or pelvic finding in this unenhanced study. 2. Punctate right nephrolithiasis. 3. Prominent prostate gland. Electronically signed by: Starr Chan MD 10/03/2018 9:31 PM [employer]
[2018-10-03 22:09] VITALS: O2SAT 93
[2018-10-03 22:10] VITALS: BP 153/79; TEMP 97.9
== END 2018-10-03 22:10 | disposition home or self-care (01) ==
LOC: ER 19:33
DX: K62.5 Hemorrhage of anus and rectum (principal); J44.9 Chronic obstructive pulmonary disease, unspecified; I51.9 Heart disease, unspecified; I10 Essential (primary) hypertension; E11.9 Type 2 diabetes mellitus without complications; K21.9 Gastro-esophageal reflux disease without esophagitis; Z87.891 Personal history of nicotine dependence; Z85.89 Personal history of malignant neoplasm of other organs and systems

== ENCOUNTER 2018-10-05 21:44 | Emergency (ER) | payer MEDICARE, MEDICAID ==
[2018-10-05 22:03] VITALS: TEMP 98.2
[2018-10-05] MEDS ORDERED: ONDANSETRON ODT 8 MG TAB SL ONE (22:14)
[2018-10-05] MEDS ORDERED: SUCRALFATE 1 GM/10 ML 1 GM UD PO ONE (22:14)
--- NOTE | 2018-10-05 23:00 | RAD ---
EXAM: Acute abdominal series. INDICATION: Nausea, diarrhea. COMPARISON: None. FINDINGS: Cardiac silhouette: Enlarged Harriet: Unremarkable. Lobar consolidation: None. Pleural effusion: None. Pneumothorax: None. Other: None. Intraperitoneal free air: Negative. Bowel: No dilated loops of small bowel or air-fluid levels. Bones: Unremarkable. Other: None. IMPRESSION: 1. Nonspecific, nonobstructed bowel gas pattern. Electronically signed by: Tristan Fisher MD 10/05/2018 10:57 PM [employer] MACHINE OPERATOR Workstation: [id number]
[2018-10-06 00:22] VITALS: O2SAT 96
[2018-10-06] MEDS ORDERED: SODIUM CHLORIDE 0.9% 1000ML 1,000 ML IVS ONE (01:31)
[2018-10-06] MEDS ORDERED: PROMETHAZINE HCL INJ 25 MG in SODIUM CHLORIDE 0.9% 50ML 50 ML IVPB ONE (01:31)
[2018-10-06] MEDS ORDERED: SODIUM CHLORIDE 0.9% 50ML 50 ML ONE (01:54)
[2018-10-06] MEDS ORDERED: PROMETHAZINE HCL INJ 25 MG/ML VIAL ONE (01:54)
--- NOTE | 2018-10-06 02:02 | ED.PDOC ---
History of Present Illness - General Chief Complaint: GI Problem Stated Complaint: diarrhea Time Seen by Provider: 10/05/18 21:50 Source: patient Exam Limitations: no limitations - History of Present Illness Initial Comments: the patient is a 62-year-old male presenting to emergency room secondary to one episode of diarrhea and some nausea with 1 episode of vomiting starting approximately 30 minutes prior to arrival. No chest pain. No syncope. No palpitations. The patient was seen here a couple of days ago for a small amount of blood after having a bowel movement. He is being set up by his primary care doctor for an endoscopy. No fevers. No point abdominal pain. He is simply having mild abdominal cramping and generalized mild nausea. No fevers. No sore throat. No runny nose.he did have a CT scan of the abdomen and pelvis 2 days ago showing no acute pathology. Timing/Duration: 1/2 hour Severity: moderate Improving Factors: nothing Worsening Factors: nothing Associated Symptoms: loss of appetite, malaise, nausea/vomiting Allergies/Adverse Reactions: Allergies Codeine Allergy (Verified 09/06/18 17:52) Penicillins Allergy (Verified 09/06/18 17:52) Home Medications: Ambulatory Orders Aspirin [Aspirin Adult Low Dose] 81 mg PO DAILY 06/08/16 Glipizide [Glipizide Xl] 2.5 mg PO BID 06/08/16 Albuterol Sulfate Nebs [Proventil Nebs] 2.5 mg INH Q4H PRN 07/06/17 Amlodipine Besylate 10 mg PO DAILY 02/23/18 Lisinopril & Hydrochlorothiazi [Lisinopril/Hctz 20-25 mg] 1 tab PO DAILY 02/23/18 Rlzls-6-Huqb Ethyl Esters [Buvzd-7-Lpxy Ethyl Esters 1 gm] 1 cap PO BID 02/23/18 Potassium Chloride [Micro-K] 10 meq PO DAILY 02/23/18 Propranolol HCl [Propranolol HCl ER] 60 mg PO DAILY 02/23/18 Tamsulosin [Flomax] 0.4 mg PO QD 02/23/18 Dulaglutide [Trulicity] 1.5 mg SC MONTHLY 02/25/18 Albuterol Sulfate Nebs [Proventil Nebs] 2.5 mg INH Q4HR #60 vial 02/28/18 Bisacodyl [Dulcolax Tab] 5 mg PO DAILY PRN tab 02/28/18 Budesonide-Formoterol Fumarate [Symbicort 160-4.5 Mcg/Act] 2 inh IN DAILY #1 02/28/18 Methylprednisolone [Medrol Dose Siva] 4 mg PO DAILY 6 Days #21 tab 02/28/18 guaiFENesin ER TAB [Mucinex Tab] 1,200 mg PO BID tab 02/28/18 levoFLOXacin [Levaquin] 500 mg PO DAILY #4 tab 02/28/18 Apixaban [Eliquis] 5 mg PO BID #30 tab 08/04/18 Digoxin 0.25 mg PO QAM #30 tab 08/04/18 Omeprazole 20 mg PO QAM #30 cap 08/07/18 Doxycycline (Monohydrate) [Doxycycline Monohydrate] 100 mg PO BID #20 cap 09/06/18 Prednisone [Deltasone] 20 mg PO DAILY #5 tab 09/06/18 Ondansetron [Zofran Odt] 4 mg PO Q4H PRN #10 tab 10/06/18 Sucralfate Tab [Carafate Tab] 1 gm PO QID #60 tab 10/06/18 Review of Systems - Review of Systems Constitutional: States: malaise EENTM: States: no symptoms reported Respiratory: States: no symptoms reported Cardiology: States: no symptoms reported Gastrointestinal/Abdominal: States: diarrhea, nausea, vomiting Genitourinary: States: no symptoms reported Musculoskeletal: States: no symptoms reported - chronic issues Skin: States: no symptoms reported Neurological: States: anxiety Endocrine: States: no symptoms reported All other Systems: No Change from Baseline Past Medical History (General) - Patient Medical History Hx Seizures: No Hx Stroke: No Hx Dementia: No Hx Asthma: No Hx of COPD: Yes Hx Cardiac Disorders: Yes Hx Congestive Heart Failure: No Hx Pacemaker: No Hx Hypertension: Yes Hx Thyroid Disease: No Hx Diabetes: Yes Hx Gastroesophageal Reflux: Yes Hx Renal Disease: No 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 Hx of HIV: No Hx Hepatitis C: No Hx MRSA: No Surgical History: cancer surgery, tonsillectomy, other - Vaccination History Hx Tetanus, Diphtheria Vaccination: Yes Hx Influenza Vaccination: No Hx Pneumococcal Vaccination: Yes - Social History Hx Tobacco Use: Yes Hx Chewing Tobacco Use: Yes - chews cigars, does not smoke Hx Alcohol Use: Yes Hx Substance Use: No Hx Substance Use Treatment: No Hx Depression: No Hx Physical Abuse: No Hx Emotional Abuse: No Hx Suspected Abuse: No - Female History Patient : No Family Medical History - Family History Mother Living Status: Hx Cardiac Disease: Yes - brother Hx Family Diabetes: Yes - mom Brother Family History: Unknown Name: Eliezer Braden Age (years): 60 Living Status: Still Living Hx Family Asthma: No Hx Family Congestive Heart Failure: No Hx Family Hypertension: Yes Hx Family Stroke: No Hx Cardiac Disease: No Hx Family Diabetes: Yes Hx Family Cancer: No Physical Exam - Physical Exam General Appearance: Alert, Anxious, No apparent distress Eye Exam: bilateral normal Ears, Nose, Throat: hearing grossly normal, normal pharynx - poor dentition Neck: full range of motion, supple Respiratory: lungs clear, normal breath sounds, no respiratory distress, no accessory muscle use - the patient does wear oxygen at baseline. 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 Laboratory work is reassuring. The patient has responded well to medications. CT scan of the abdomen performed 2 days ago showed no acute intra-abdominal pathology. The patient does need to keep follow-up with gastroenterology for colonoscopy. He is going to be written for Zofran and Carafate to take for the next week or so as needed to control symptoms. He can take a small dose of Imodium every now and then if he wishes if he continues to have some diarrhea. He did test negative on one test for C. difficile colitis here today. ER warnings were given for any significant worsening. This is most likely a viral gastroenteritis given the presentation. I do recommend that he stay on his oxygen as his oxygen levels are borderline without it. The patient is also mildly dehydrated and did receive a liter of IV fluids here today. Follow-up with primary care doctor early next week. - Results/Orders Results/Orders: acute abdominal series fails to show any acute pathology. No free air. No obstruction. No ileus. Laboratory Tests 10/05/18 10/05/18 10/05/18 22:16 22:22 23:07 WBC RBC Hgb Hct MCV MCH MCHC RDW Plt Count MPV Absolute Neuts (auto) Absolute Lymphs (auto) Absolute Monos (auto) Absolute Eos (auto) Absolute Basos (auto) Neutrophils % Lymphocytes % Monocytes % Eosinophils % Basophils % Sodium 134 L Potassium 4.1 Chloride 96 L Carbon Dioxide 27 Anion Gap 15.1 BUN 28 H D Creatinine 1.35 H D BUN/Creatinine Ratio 20.7 H POC Glucose 159 H Random Glucose 170 H Serum Osmolality 277.7 Lactic Acid Calcium 9.1 Total Bilirubin 0.8 AST 23 ALT 33 Alkaline Phosphatase 73 Serum Total Protein 7.6 Albumin 4.5 Globulin 3.1 Albumin/Globulin Ratio 1.5 Urine Color Yellow Urine Appearance Clear Urine pH 5.5 Ur Specific [place] 1.025 Urine Protein 30 Urine Glucose (UA) Negative Urine Ketones Trace Urine Blood Negative Urine Nitrite Negative Urine Bilirubin Small H Urine Urobilinogen 0.2 Ur Leukocyte Esterase Negative Urine RBC 0-1 Urine WBC 3-5 H Ur Epithelial Cells 3-5 Urine Bacteria 0 10/05/18 10/05/18 23:07 23:07 WBC 8.0 RBC 4.64 L Hgb 15.3 Hct 45.4 MCV 97.9 H MCH 32.9 H MCHC 33.6 RDW 13.9 Plt Count 183 MPV 7.5 Absolute Neuts (auto) 6.70 Absolute Lymphs (auto) 0.50 L Absolute Monos (auto) 0.70 Absolute Eos (auto) 0.10 Absolute Basos (auto) 0.00 Neutrophils % 83.2 H Lymphocytes % 6.7 L Monocytes % 8.5 Eosinophils % 1.2 Basophils % 0.4 Sodium Potassium Chloride Carbon Dioxide Anion Gap BUN Creatinine BUN/Creatinine Ratio POC Glucose Random Glucose Serum Osmolality Lactic Acid 1.4 Calcium Total Bilirubin AST ALT Alkaline Phosphatase Serum Total Protein Albumin Globulin Albumin/Globulin Ratio Urine Color Urine Appearance Urine pH Ur Specific [place] Urine Protein Urine Glucose (UA) Urine Ketones Urine Blood Urine Nitrite Urine Bilirubin Urine Urobilinogen Ur Leukocyte Esterase Urine RBC Urine WBC Ur Epithelial Cells Urine Bacteria Departure - Departure Clinical Impression: Viral gastroenteritis, Dehydration Acute renal failure Qualifiers: Acute renal failure type: unspecified Qualified Code(s): N17.9 - Acute kidney failure, unspecified Disposition: Discharge to Home or Self Care Condition: Fair Departure Forms: ED Discharge - Pt. Copy, Patient Portal Self Enrollment Instructions: DI for Diarrhea and Traveler's Diarrhea -- Adult, DI for Gastritis Diet: bland diet, diabetic diet Activity: increase activity as tolerated Referrals: Felipe Escudero MD [Primary Care Provider] - 1-5 Days Prescriptions: Ondansetron [Zofran Odt] 4 mg PO Q4H PRN #10 tab PRN Reason: Vomiting Sucralfate Tab [Carafate Tab] 1 gm PO QID #60 tab Home Medications: Ambulatory Orders Aspirin [Aspirin Adult Low Dose] 81 mg PO DAILY 06/08/16 Glipizide [Glipizide Xl] 2.5 mg PO BID 06/08/16 Albuterol Sulfate Nebs [Proventil Nebs] 2.5 mg INH Q4H PRN 07/06/17 Amlodipine Besylate 10 mg PO DAILY 02/23/18 Lisinopril & Hydrochlorothiazi [Lisinopril/Hctz 20-25 mg] 1 tab PO DAILY 02/23/18 Wradq-3-Nghb Ethyl Esters [Fuixe-2-Lcmi Ethyl Esters 1 gm] 1 cap PO BID 02/23/18 Potassium Chloride [Micro-K] 10 meq PO DAILY 02/23/18 Propranolol HCl [Propranolol HCl ER] 60 mg PO DAILY 02/23/18 Tamsulosin [Flomax] 0.4 mg PO QD 02/23/18 Dulaglutide [Trulicity] 1.5 mg SC MONTHLY 02/25/18 Albuterol Sulfate Nebs [Proventil Nebs] 2.5 mg INH Q4HR #60 vial 02/28/18 Bisacodyl [Dulcolax Tab] 5 mg PO DAILY PRN tab 02/28/18 Budesonide-Formoterol Fumarate [Symbicort 160-4.5 Mcg/Act] 2 inh IN DAILY #1 02/28/18 Methylprednisolone [Medrol Dose Siva] 4 mg PO DAILY 6 Days #21 tab 02/28/18 guaiFENesin ER TAB [Mucinex Tab] 1,200 mg PO BID tab 02/28/18 levoFLOXacin [Levaquin] 500 mg PO DAILY #4 tab 02/28/18 Apixaban [Eliquis] 5 mg PO BID #30 tab 08/04/18 Digoxin 0.25 mg PO QAM #30 tab 08/04/18 Omeprazole 20 mg PO QAM #30 cap 08/07/18 Doxycycline (Monohydrate) [Doxycycline Monohydrate] 100 mg PO BID #20 cap 09/06/18 Prednisone [Deltasone] 20 mg PO DAILY #5 tab 09/06/18 Ondansetron [Zofran Odt] 4 mg PO Q4H PRN #10 tab 10/06/18 Sucralfate Tab [Carafate Tab] 1 gm PO QID #60 tab 10/06/18 Additional Instructions: the patient's 62-year-old male presenting to the emergency room secondary to 30 minutes of nausea vomiting and diarrhea prior to arrival. Laboratory work is reassuring. The patient has responded well to medications. CT scan of the abdomen performed 2 days ago showed no acute intra-abdominal pathology. The patient does need to keep follow-up with gastroenterology for colonoscopy. He is going to be written for Zofran and Carafate to take for the next week or so as needed to control symptoms. He can take a small dose of Imodium every now and then if he wishes if he continues to have some diarrhea. He did test negative on one test for C. difficile colitis here today. ER warnings were given for any significant worsening. This is most likely a viral gastroenteritis given the presentation. I do recommend that he stay on his oxygen as his oxygen levels are borderline without it. The patient is also mildly dehydrated and did receive a liter of IV fluids here today. Follow-up with primary care doctor early next week.
[2018-10-06 02:57] VITALS: BP 93/49
== END 2018-10-06 02:57 | disposition home or self-care (01) ==
LOC: ER 21:44
DX: A08.4 Viral intestinal infection, unspecified (principal); E86.0 Dehydration; N17.9 Acute kidney failure, unspecified; J44.9 Chronic obstructive pulmonary disease, unspecified; I51.9 Heart disease, unspecified; I10 Essential (primary) hypertension; E11.9 Type 2 diabetes mellitus without complications; K21.9 Gastro-esophageal reflux disease without esophagitis; Z87.891 Personal history of nicotine dependence; Z79.899 Other long term (current) drug therapy; Z85.89 Personal history of malignant neoplasm of other organs and systems; Z79.82 Long term (current) use of aspirin; Z88.5 Allergy status to narcotic agent; Z88.0 Allergy status to penicillin; Z99.81 Dependence on supplemental oxygen
CPT/HCPCS: 74019; 80053; 81001; 82948; 83605; 85025; 87324; 87449; 87502; A4216; J2550; J7030

== ENCOUNTER 2018-10-10 10:51 | Emergency (ER) | payer MEDICARE, MEDICAID ==
--- NOTE | 2018-10-10 11:58 | ED.PDOC ---
History of Present Illness - General Source: patient Exam Limitations: no limitations - History of Present Illness Initial Comments: Jose Francisco Braden 62 y/o male initially seen 03 Oct 2018 for rectal bleeding and was advised transfer to [facility] to see GI specialist but preferred his family Md in [place] to refer him and has appointment set up but date unknown to patient.He was seen here in ER the following day and again followed up done with his primary MD and had been to urgent care clinic almost daily and he was sent over here with SOB,and abdominal cramps.Stated has tarry stool but no longer bloody.Discuss case with Dr. Escudero his primary MD since his patient wants to see him but unable to see him today. Also taken Imodium and relived his abdominal cramps.Had abdominal CT w/o contrast -no acute changes noted. Timing/Duration: other - one week Severity: moderate Improving Factors: other - see hpi Worsening Factors: nothing Associated Symptoms: shortness of breath, other - abdominal cramps - General Chief Complaint: General Stated Complaint: C/O SOB, abdominal discomfort Time Seen by Provider: 10/10/18 11:27 - History of Present Illness Allergies/Adverse Reactions: Allergies Codeine Allergy (Verified 10/10/18 11:05) Penicillins Allergy (Verified 10/10/18 11:05) Home Medications: Ambulatory Orders Aspirin [Aspirin Adult Low Dose] 162 mg PO DAILY 06/08/16 Glipizide [Glipizide Xl] 2.5 mg PO BID 06/08/16 Albuterol Sulfate Nebs [Proventil Nebs] 2.5 mg INH Q4H PRN 07/06/17 Amlodipine Besylate 10 mg PO DAILY 02/23/18 Lisinopril & Hydrochlorothiazi [Lisinopril/Hctz 20-25 mg] 1 tab PO DAILY 02/23/18 Fkaae-0-Pmqe Ethyl Esters [Upzdz-1-Vork Ethyl Esters 1 gm] 1 cap PO BID 02/23/18 Propranolol HCl [Propranolol HCl ER] 60 mg PO DAILY 02/23/18 Tamsulosin [Flomax] 0.4 mg PO QD 02/23/18 Dulaglutide [Trulicity] 1.5 mg SC MONTHLY 02/25/18 Budesonide-Formoterol Fumarate [Symbicort 160-4.5 Mcg/Act] 2 inh IN DAILY #1 02/28/18 Digoxin 0.25 mg PO QAM #30 tab 08/04/18 Omeprazole 20 mg PO QAM #30 cap 08/07/18 Sucralfate Tab [Carafate Tab] 1 gm PO QID #60 tab 10/06/18 Primidone 50 mg PO BID 10/10/18 Review of Systems - Review of Systems Constitutional: States: no symptoms reported EENTM: States: no symptoms reported Respiratory: States: no symptoms reported Cardiology: States: no symptoms reported Gastrointestinal/Abdominal: States: see HPI Genitourinary: States: no symptoms reported Musculoskeletal: States: no symptoms reported Skin: States: no symptoms reported All other Systems: Reviewed and Negative, No Change from Baseline Past Medical History (General) - Patient Medical History Hx Seizures: No Hx Stroke: No Hx Dementia: No Hx Asthma: No Hx of COPD: Yes Hx Cardiac Disorders: Yes Hx Congestive Heart Failure: No Hx Pacemaker: No Hx Hypertension: Yes Hx Thyroid Disease: No Hx Diabetes: Yes Hx Gastroesophageal Reflux: Yes Hx Renal Disease: No 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 Hx of HIV: No Hx Hepatitis C: No Hx MRSA: No Hx Other PMH: Yes - rectal bleeding Surgical History: tonsillectomy - Vaccination History Hx Tetanus, Diphtheria Vaccination: Yes Hx Influenza Vaccination: Yes - 2018 Hx Pneumococcal Vaccination: Yes - Social History Hx Tobacco Use: Yes Hx Chewing Tobacco Use: Yes - chews cigars, does not smoke Hx Alcohol Use: Yes Hx Substance Use: No Hx Substance Use Treatment: No Hx Depression: No Hx Physical Abuse: No Hx Emotional Abuse: No Hx Suspected Abuse: No - Female History Patient : No Family Medical History - Family History Mother Living Status: Hx Cardiac Disease: Yes - brother Hx Family Diabetes: Yes - mom Brother Family History: Unknown Name: Eliezer Braden Age (years): 60 Living Status: Still Living Hx Family Asthma: No Hx Family Congestive Heart Failure: No Hx Family Hypertension: Yes Hx Family Stroke: No Hx Cardiac Disease: No Hx Family Diabetes: Yes Hx Family Cancer: No Physical Exam - Physical Exam General Appearance: Alert, No apparent distress Eye Exam: bilateral normal Ears, Nose, Throat: hearing grossly normal, normal ENT inspection Neck: non-tender, supple Respiratory: chest non-tender, lungs clear, normal breath sounds Cardiovascular/Chest: normal peripheral pulses, regular rate, rhythm, no murmur Peripheral Pulses: radial,right: 2+, radial,left: 2+ Gastrointestinal/Abdominal: non tender, soft Back Exam: no CVA tenderness, no vertebral tenderness Extremity: no pedal edema, no calf tenderness Neurologic: alert, oriented x 3 Skin Exam: normal color, warm/dry Progress - Progress Progress: 10/10/18 12:13 Vital Signs - 24 hr 10/10/18 10:51 Temperature 98.5 F Pulse Rate [ 70 Left Radial] Respiratory 22 Rate Blood Pressure 130/70 [Left Arm] O2 Sat by Pulse 95 Oximetry Departure - Departure Clinical Impression: Rectal bleeding, COPD exacerbation Disposition: Discharge to Home or Self Care Condition: Good Departure Forms: ED Discharge - Pt. Copy, Patient Portal Self Enrollment Referrals: Felipe Escudero MD [Primary Care Provider] - 1-2 Weeks Home Medications: Ambulatory Orders Aspirin [Aspirin Adult Low Dose] 162 mg PO DAILY 06/08/16 Glipizide [Glipizide Xl] 2.5 mg PO BID 06/08/16 Albuterol Sulfate Nebs [Proventil Nebs] 2.5 mg INH Q4H PRN 07/06/17 Amlodipine Besylate 10 mg PO DAILY 02/23/18 Lisinopril & Hydrochlorothiazi [Lisinopril/Hctz 20-25 mg] 1 tab PO DAILY 02/23/18 Vmorh-0-Xfjf Ethyl Esters [Liqvw-3-Bfya Ethyl Esters 1 gm] 1 cap PO BID 02/23/18 Propranolol HCl [Propranolol HCl ER] 60 mg PO DAILY 02/23/18 Tamsulosin [Flomax] 0.4 mg PO QD 02/23/18 Dulaglutide [Trulicity] 1.5 mg SC MONTHLY 02/25/18 Budesonide-Formoterol Fumarate [Symbicort 160-4.5 Mcg/Act] 2 inh IN DAILY #1 02/28/18 Digoxin 0.25 mg PO QAM #30 tab 08/04/18 Omeprazole 20 mg PO QAM #30 cap 08/07/18 Sucralfate Tab [Carafate Tab] 1 gm PO QID #60 tab 10/06/18 Primidone 50 mg PO BID 10/10/18
[2018-10-10] MEDS ORDERED: PANTOPRAZOLE INJECTION 80 MG in SODIUM CHLORIDE 0.9% 100ML 80 ML IVPB ONE (12:33)
[2018-10-10] MEDS ORDERED: PANTOPRAZOLE SODIUM TAB 40 MG PO ONE (13:26)
[2018-10-10] MEDS ORDERED: IPRATROPIUM/ALBUTEROL 3 ML VIAL NEB ONE (13:34)
[2018-10-11 09:34] VITALS: BP 134/69; TEMP 98; O2SAT 97
== END 2018-10-10 14:20 | disposition home or self-care (01) ==
LOC: ER 10:51
DX: K62.5 Hemorrhage of anus and rectum (principal); J44.1 Chronic obstructive pulmonary disease with (acute) exacerbation; R10.9 Unspecified abdominal pain; I10 Essential (primary) hypertension; E11.9 Type 2 diabetes mellitus without complications; K21.9 Gastro-esophageal reflux disease without esophagitis; Z85.89 Personal history of malignant neoplasm of other organs and systems; Z87.891 Personal history of nicotine dependence; I51.9 Heart disease, unspecified; Z79.82 Long term (current) use of aspirin; Z79.899 Other long term (current) drug therapy; Z88.5 Allergy status to narcotic agent; Z88.0 Allergy status to penicillin
CPT/HCPCS: 36415; 80053; 85025; 94640; J7620

== ENCOUNTER → 2019-01-09 | Outpatient (CLI) | payer MEDICARE, MEDICAID ==
--- NOTE | 2019-01-10 12:44 | US ---
EXAM DESCRIPTION: Soft Tissue,Head/Neck CLINICAL HISTORY: 63 years Male, SOFT TISSUE SWELLING LEFT NECK COMPARISON: None. TECHNIQUE: Real-time sonographic images of the neck are obtained in the area of palpable abnormality. FINDINGS: Small lymph node with central echogenicity is seen in the area of palpable abnormality of the left neck measuring 9 x 7 x 4 mm. IMPRESSION: Small less than 1 cm lymph nodes in the left lateral neck is seen on ultrasound images. This is not pathologically enlarged by ultrasound criteria. Electronically signed by: Nadeem Newell MD 01/10/2019 12:42 PM CDT
== END ==
LOC: US 14:55
PROVIDERS: ATTEND General Practice
DX: M79.89 Other specified soft tissue disorders (principal)

== ENCOUNTER 2019-02-05 22:12 | Emergency (ER) | payer MEDICARE, MEDICAID ==
[2019-02-05] MEDS ORDERED: IPRATROPIUM/ALBUTEROL 3 ML VIAL NEB ONE (22:19)
--- NOTE | 2019-02-05 22:24 | ED.PDOC ---
History of Present Illness - General Time Seen by Provider: 02/05/19 22:19 Source: patient, RN notes reviewed Additional Information: 63 YR OLD OBESE WHITE MALE WITH A KNOWN HISTORY OF CAD TYPE II DM COPD HTN PRESENTS WITH SHORTNESS OF BREATH HE HAS BEEN STAYING AT MOTOR HOME WITH NO AIR-CONDITIONER LAST WEEK HE WAS TREATED FOR BRONCHITIS HE HAS NO FEVER CHILLS NO CHEST PAIN DIAPHORESIS - History of Present Illness Timing/Duration: 1 week Severity: moderate Improving Factors: nothing Worsening Factors: nothing Associated Symptoms: denies symptoms Allergies/Adverse Reactions: Allergies Codeine Allergy (Verified 10/10/18 11:05) Penicillins Allergy (Verified 10/10/18 11:05) Home Medications: Ambulatory Orders Glipizide [Glipizide Xl] 2.5 mg PO BID 06/08/16 Albuterol Sulfate Nebs [Proventil Nebs] 2.5 mg INH Q4H PRN 07/06/17 Amlodipine Besylate 10 mg PO DAILY 02/23/18 Fidvj-4-Sajf Ethyl Esters [Gwtkm-3-Fewp Ethyl Esters 1 gm] 1 cap PO DAILY 02/23/18 Propranolol HCl [Propranolol HCl ER] 60 mg PO DAILY 02/23/18 Tamsulosin [Flomax] 0.4 mg PO QD 02/23/18 Hydrochlorothiazide 25 mg PO DAILY 12/29/18 Budesonide Nebs [Pulmicort Respules] 0.5 mg NEB BID 02/05/19 Ipratropium/Albuterol [Duoneb] 3 ml NEB QID 02/05/19 Methylprednisolone [Medrol Dose Siva] 4 mg PO DAILY 6 Days #21 tab 02/05/19 Primidone 50 mg PO BID 02/05/19 Review of Systems - Review of Systems Constitutional: States: no symptoms reported, weakness EENTM: States: no symptoms reported Respiratory: States: cough, short of breath, wheezing Cardiology: States: no symptoms reported Gastrointestinal/Abdominal: States: no symptoms reported Genitourinary: States: no symptoms reported Musculoskeletal: States: no symptoms reported Skin: States: no symptoms reported Neurological: States: no symptoms reported Endocrine: States: no symptoms reported Hematologic/Lymphatic: States: no symptoms reported Past Medical History (General) - Patient Medical History Hx Seizures: No Hx Stroke: No Hx Dementia: No Hx Asthma: No Hx of COPD: Yes Hx Cardiac Disorders: Yes Hx Congestive Heart Failure: No Hx Pacemaker: No Hx Hypertension: Yes Hx Thyroid Disease: No Hx Diabetes: Yes Hx Gastroesophageal Reflux: Yes Hx Renal Disease: No 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 Hx of HIV: No Hx Hepatitis C: No Hx MRSA: No - Vaccination History Hx Tetanus, Diphtheria Vaccination: Yes Hx Influenza Vaccination: No Hx Pneumococcal Vaccination: Yes - Social History Hx Tobacco Use: Yes Hx Chewing Tobacco Use: Yes - chews cigars, does not smoke Hx Alcohol Use: Yes Hx Substance Use: No Hx Substance Use Treatment: No Hx Depression: No Hx Physical Abuse: No Hx Emotional Abuse: No Hx Suspected Abuse: No - Female History Patient : No Family Medical History - Family History Mother Living Status: Hx Cardiac Disease: Yes - brother Hx Family Diabetes: Yes - mom Brother Family History: Unknown Name: Eliezer Braden Age (years): 60 Living Status: Still Living Hx Family Asthma: No Hx Family Congestive Heart Failure: No Hx Family Hypertension: Yes Hx Family Stroke: No Hx Cardiac Disease: No Hx Family Diabetes: Yes Hx Family Cancer: No Physical Exam - Physical Exam General Appearance: Alert, Obese Eye Exam: bilateral normal Ears, Nose, Throat: hearing grossly normal, normal ENT inspection, normal pharynx Neck: non-tender, full range of motion, supple Respiratory: chest non-tender, lungs clear, respiratory distress, rhonchi, wheezing Cardiovascular/Chest: normal peripheral pulses, regular rate, rhythm, no edema, no gallop Gastrointestinal/Abdominal: normal bowel sounds, non tender, no organomegaly Back Exam: normal inspection, no CVA tenderness Extremity: normal range of motion, non-tender, normal inspection Neurologic: human resources office assistant II-XII nml as tested, no motor/sensory deficits, alert, normal mood/affect, oriented x 3 Progress - Results/Orders Results/Orders: Laboratory Tests 02/05/19 02/05/19 22:28 22:28 WBC 8.1 RBC 4.62 L Hgb 15.0 Hct 44.8 MCV 96.9 H MCH 32.6 H MCHC 33.6 RDW 14.0 Plt Count 140 MPV 7.7 Absolute Neuts (auto) 5.60 Absolute Lymphs (auto) 1.70 Absolute Monos (auto) 0.60 Absolute Eos (auto) 0.10 Absolute Basos (auto) 0.10 Neutrophils % 68.9 Lymphocytes % 21.4 Monocytes % 7.7 Eosinophils % 1.4 Basophils % 0.6 Sodium 136 Potassium 3.6 Chloride 94 L Carbon Dioxide 31 Anion Gap 14.6 BUN 18 Creatinine 0.80 BUN/Creatinine Ratio 22.5 H Random Glucose 206 H Serum Osmolality 279.8 Calcium 9.7 Total Bilirubin 0.7 AST 17 ALT 28 Alkaline Phosphatase 60 Serum Total Protein 7.3 Albumin 4.0 Globulin 3.3 Albumin/Globulin Ratio 1.2 PATIENT APPEARS COMFORTABLE HIS VS STABLE NO HYPOXIA NOTED LUNGS WHEEZING IS MUCH DIMINISHED Departure - Departure Clinical Impression: COPD with exacerbation, COPD exacerbation, Diabetes, Bronchospasm Time of Disposition: 23:18 Disposition: Discharge to Home or Self Care Condition: Good Referrals: Felipe Escudero MD [Primary Care Provider] - 1-2 Weeks Prescriptions: Methylprednisolone [Medrol Dose Siva] 4 mg PO DAILY 6 Days #21 tab Home Medications: Ambulatory Orders Glipizide [Glipizide Xl] 2.5 mg PO BID 06/08/16 Albuterol Sulfate Nebs [Proventil Nebs] 2.5 mg INH Q4H PRN 07/06/17 Amlodipine Besylate 10 mg PO DAILY 02/23/18 Pzbmm-4-Lgal Ethyl Esters [Evbwv-7-Pxbm Ethyl Esters 1 gm] 1 cap PO DAILY 02/23/18 Propranolol HCl [Propranolol HCl ER] 60 mg PO DAILY 02/23/18 Tamsulosin [Flomax] 0.4 mg PO QD 02/23/18 Hydrochlorothiazide 25 mg PO DAILY 12/29/18 Budesonide Nebs [Pulmicort Respules] 0.5 mg NEB BID 02/05/19 Ipratropium/Albuterol [Duoneb] 3 ml NEB QID 02/05/19 Methylprednisolone [Medrol Dose Siva] 4 mg PO DAILY 6 Days #21 tab 02/05/19 Primidone 50 mg PO BID 02/05/19
--- NOTE | 2019-02-05 22:38 | RAD ---
EXAM: XR Chest, 1 View CLINICAL HISTORY: The patient is 63 years old and is Male; SOB TECHNIQUE: Frontal view of the chest. COMPARISON: Chest radiograph October 03, 2018. FINDINGS: LUNGS: Left basilar opacity is noted. The right lung is clear. PLEURAL SPACE: Unremarkable. No pneumothorax. HEART: The cardiac silhouette is enlarged. MEDIASTINUM: Unremarkable. BONES/JOINTS: There are degenerative changes of the bones. VASCULATURE: Prominence of the central vasculature is present. IMPRESSION: 1. Cardiomegaly with findings suggestive of mild venous congestion. 2. Probable left lower lobe atelectasis. Electronically signed by: Rhonda Rudolph MD 02/05/2019 10:36 PM CDT
[2019-02-05] MEDS ORDERED: DEXAMETHASONE INJ 10 MG/ML VIAL IM ONE (23:12)
[2019-02-05 23:34] VITALS: BP 136/72; TEMP 98.1; O2SAT 92
== END 2019-02-05 23:34 | disposition home or self-care (01) ==
LOC: ER 22:12
DX: J44.1 Chronic obstructive pulmonary disease with (acute) exacerbation (principal); J98.01 Acute bronchospasm; E11.9 Type 2 diabetes mellitus without complications; I51.9 Heart disease, unspecified; I10 Essential (primary) hypertension; K21.9 Gastro-esophageal reflux disease without esophagitis; Z72.0 Tobacco use; Z85.89 Personal history of malignant neoplasm of other organs and systems; Z79.899 Other long term (current) drug therapy; Z88.5 Allergy status to narcotic agent; Z88.0 Allergy status to penicillin
CPT/HCPCS: 71045; 80053; 85025; 94640; J1100; J7620

== ENCOUNTER 2019-04-05 07:19 | Emergency (ER) | payer MEDICARE, MEDICAID ==
[2019-04-05 07:42] VITALS: TEMP 97.2
[2019-04-05 13:27] VITALS: BP 140/71; O2SAT 93
== END 2019-04-05 13:15 | disposition home or self-care (01) ==
LOC: ER 07:19
DX: S92.514A Nondisplaced fracture of proximal phalanx of right lesser toe(s), initial encounter for closed fracture (principal); R60.0 Localized edema; E11.9 Type 2 diabetes mellitus without complications; K21.9 Gastro-esophageal reflux disease without esophagitis; F17.290 Nicotine dependence, other tobacco product, uncomplicated; J44.9 Chronic obstructive pulmonary disease, unspecified; I10 Essential (primary) hypertension; Z85.89 Personal history of malignant neoplasm of other organs and systems; Z79.82 Long term (current) use of aspirin; Z79.899 Other long term (current) drug therapy; Z88.5 Allergy status to narcotic agent; Z88.0 Allergy status to penicillin; X58.XXXA Exposure to other specified factors, initial encounter; Y92.9 Unspecified place or not applicable

== ENCOUNTER 2019-07-22 13:50 | Observation (INO) | payer MEDICARE, MEDICAID ==
[2019-07-22] MEDS ORDERED: IPRATROPIUM/ALBUTEROL 3 ML VIAL NEB ONE (14:00)
[2019-07-22] MEDS ORDERED: methylPREDNISolone SODIUM SUC 125 MG/2 ML VIAL IV ONE (14:02)
[2019-07-22] MEDS ORDERED: cefTRIAXone SODIUM 1 GM in SODIUM CHL 0.9% 50ML MIN-BAG+ 50 ML IVPB ONE (14:03)
--- NOTE | 2019-07-22 14:06 | ED.PDOC ---
History of Present Illness - General Chief Complaint: Respiratory Problem Time Seen by Provider: 07/22/19 13:55 Source: patient Exam Limitations: no limitations - History of Present Illness Initial Comments: 63-year-old male presents to the emergency department complaining of worsening shortness of breath onset 1 day ago. He has a history of COPD and is on oxygen as needed and over the last day has had increasing shortness of breath. He reports that he had where his oxygen all night last night. He has been doing home albuterol and treatments the last was at 2 AM this morning. He denies any significant cough or sputum production. He has had subjective fever and chills. He denies any associated chest pain, abdominal pain, nausea or vomiting. He has not had any known ill contacts. Symptoms are currently moderate in severity and it progressively worsened over time. Nothing he does seems to make the symptoms significantly better or worse. Allergies/Adverse Reactions: Allergies Codeine Allergy (Verified 07/22/19 14:08) Penicillins Allergy (Verified 07/22/19 14:08) Home Medications: Ambulatory Orders Glipizide [Glipizide Xl] 2.5 mg PO BID 06/08/16 Albuterol Sulfate Nebs [Proventil Nebs] 2.5 mg INH Q4H PRN 07/06/17 Amlodipine Besylate 10 mg PO DAILY 02/23/18 Oobqo-2-Osrs Ethyl Esters [Nusrj-6-Vmop Ethyl Esters 1 gm] 1 cap PO DAILY 02/23/18 Propranolol HCl [Propranolol HCl ER] 60 mg PO DAILY 02/23/18 Tamsulosin [Flomax] 0.4 mg PO DAILY 02/23/18 Hydrochlorothiazide 25 mg PO DAILY 12/29/18 Budesonide Nebs [Pulmicort Respules] 0.5 mg NEB BID 02/05/19 Ipratropium/Albuterol [Duoneb] 3 ml NEB QID 02/05/19 Methylprednisolone [Medrol Dose Siva] 4 mg PO DAILY 6 Days #21 tab 02/05/19 Primidone 50 mg PO BID 02/05/19 Aspirin [Aspirin Low Strength] 81 mg PO DAILY 04/05/19 Bumetanide [Bumex] 2 mg PO DAILY #5 day 04/05/19 Montelukast [Singulair] 10 mg PO DAILY 04/05/19 Potassium Chloride [Klor-Con] 20 meq PO DAILY #10 day 04/05/19 Review of Systems - Review of Systems Constitutional: States: chills, fever EENTM: Denies: nose congestion, throat pain Respiratory: States: short of breath. 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 Hx of HIV: No Hx Hepatitis C: No Hx MRSA: No - Vaccination History Hx Tetanus, Diphtheria Vaccination: Yes Hx Influenza Vaccination: Yes Hx Pneumococcal Vaccination: Yes - Social History Hx Tobacco Use: Yes Hx Chewing Tobacco Use: Yes - chews cigars, does not smoke Hx Alcohol Use: Yes - not current Hx Substance Use: No Hx Substance Use Treatment: No Hx Depression: No Hx Physical Abuse: No Hx Emotional Abuse: No Hx Suspected Abuse: No - Female History Patient : No Family Medical History - Family History Mother Living Status: Hx Cardiac Disease: Yes - brother Hx Family Diabetes: Yes - mom Brother Family History: Unknown Name: Eliezer Braden Age (years): 60 Living Status: Still Living Hx Family Asthma: No Hx Family Congestive Heart Failure: No Hx Family Hypertension: Yes Hx Family Stroke: No Hx Cardiac Disease: No Hx Family Diabetes: Yes Hx Family Cancer: No Physical Exam - Physical Exam General Appearance: Alert, Well Developed, Well Nourished Eyes, Ears, Nose, Throat Exam: PERRL/EOMI, pharynx normal Neck: normal inspection, other - No JVD Respiratory: decreased breath sounds - throughout , wheezing - faint end Cardiovascular/Chest: regular rate, rhythm, no murmur Peripheral Pulses: radial,right: 2+, radial,left: 2+, dorsalis pedis,right: 2+, dorsalis pedis,left: 2+ Gastrointestinal/Abdominal: normal bowel sounds, non tender, soft Extremity: normal range of motion, normal inspection Neurologic: alert, oriented x 3, other - Moves all extremities without focal deficits Skin Exam: normal color, warm/dry Comments: Vital Signs - 24 hr 07/22/19 13:50 Temperature 97.3 F L Pulse Rate [ 79 Pulse ox] Respiratory 24 Rate Blood Pressure 159/82 [L brachial] O2 Sat by Pulse 91 L Oximetry Progress - Progress Progress: 07/22/19 15:15 Patient recheck: All lab and imaging results so far were discussed with the charis ent. He has increased air movement on exam but diffuse expiratory wheezes continued tachypnea. The patient states that he does not feel comfortable going home and preferred to be treated in the hospital. I discussed with him the plan for admission for continued frequent breathing treatments as well as steroids. The patient voices understanding and agrees with this plan. - Results/Orders Results/Orders: 07/22/19 14:23 BLOOD CULTURE Stat Laboratory Results - last 24 hr 07/22/19 07/22/19 14:23 14:23 WBC 5.7 RBC 3.94 L Hgb 13.0 L Hct 38.5 L MCV 97.9 H MCH 32.9 H MCHC 33.6 RDW 13.9 Plt Count 117 L MPV 8.0 Absolute Neuts (auto) 3.10 Absolute Lymphs (auto) 1.80 Absolute Monos (auto) 0.60 Absolute Eos (auto) 0.10 Absolute Basos (auto) 0.10 Neutrophils % 54.7 Lymphocytes % 31.3 Monocytes % 10.4 H Eosinophils % 2.6 Basophils % 1.0 PT 10.1 INR 1.01 PTT (SP) 26.0 Sodium 136 Potassium 4.0 Chloride 96 L Carbon Dioxide 32 H Anion Gap 12.0 BUN 13 Creatinine 0.73 BUN/Creatinine Ratio 17.8 Random Glucose 151 H Serum Osmolality 275.0 Lactic Acid 1.4 Calcium 9.3 Magnesium 1.6 L Creatine Kinase 56 CK-MB (CK-2) 1.6 CK-MB (CK-2) % Not Reportable Troponin I < 0.02 B-Natriuretic Peptide 34.0 Portable Chest XR read by radiology and reviewed by myself: IMPRESSION: Stable cardiomegaly, otherwise unremarkable exam. Electronically signed by: Jaspreet Segura MD 07/22/2019 2:42 PM TECHNICAL SALES DIRECTOR EK-Interpreted by myself as sinus rhythm rate 69. Normal axis. Normal intervals. No ST elevation and nonspecific ST-T changes. Departure - Departure Clinical Impression: COPD exacerbation Time of Disposition: 15:25 Disposition: Admit Patient Condition: Fair Home Medications: Ambulatory Orders Glipizide [Glipizide Xl] 2.5 mg PO BID 06/08/16 Albuterol Sulfate Nebs [Proventil Nebs] 2.5 mg INH Q4H PRN 07/06/17 Amlodipine Besylate 10 mg PO DAILY 02/23/18 Xfvqq-8-Acrq Ethyl Esters [Bthju-3-Sncb Ethyl Esters 1 gm] 1 cap PO DAILY 02/23 Propranolol HCl [Propranolol HCl ER] 60 mg PO DAILY 02/23/18 Tamsulosin [Flomax] 0.4 mg PO DAILY 02/23/18 Hydrochlorothiazide 25 mg PO DAILY 12/29/18 Budesonide Nebs [Pulmicort Respules] 0.5 mg NEB BID 02/05/19 Ipratropium/Albuterol [Duoneb] 3 ml NEB QID 02/05/19 Methylprednisolone [Medrol Dose Siva] 4 mg PO DAILY 6 Days #21 tab 02/05/19 Primidone 50 mg PO BID 02/05/19 Aspirin [Aspirin Low Strength] 81 mg PO DAILY 04/05/19 Bumetanide [Bumex] 2 mg PO DAILY #5 day 04/05/19 Montelukast [Singulair] 10 mg PO DAILY 04/05/19 Potassium Chloride [Klor-Con] 20 meq PO DAILY #10 day 04/05/19 Decision To Admit - Decistion To Admit Decision to Admit Reason: Admit from ER Decision to Admit Date: 07/22/19 Decision to Admit Time: 15:15
[2019-07-22] MEDS ORDERED: SODIUM CHL 0.9% 50ML MIN-BAG+ 50 ML IVPB ONE (14:31)
[2019-07-22] MEDS ORDERED: cefTRIAXone SODIUM 1 GM VIAL ONE (14:31)
--- NOTE | 2019-07-22 14:44 | RAD ---
EXAM DESCRIPTION: Chest,1 View CLINICAL HISTORY: SOB COMPARISON: February 05, 2019 FINDINGS: The cardiac silhouette is enlarged, stable from February 05, 2019. Mediastinal contours are otherwise unremarkable. There is no airspace consolidation or pleural effusion. The bronchovascular markings are within normal limits, and the lungs are not hyperinflated. There is no pneumothorax or acute fracture. IMPRESSION: Stable cardiomegaly, otherwise unremarkable exam. Electronically signed by: Jaspreet Segura MD 07/22/2019 2:42 PM TNT POWDER WORKER
--- NOTE | 2019-07-22 16:05 | HP ---
SUPERVISING PHYSICIAN: Camilo Fulton MD CHIEF COMPLAINT: Shortness of breath. HISTORY OF PRESENT ILLNESS: This is a 63-year-old male patient who presented to the Emergency Room complaining of worsening shortness of breath that started about two days ago. He just did not feel good and had some shortness of breath. He woke up this morning and could not breathe. He had several breathing treatments at home and he actually put his oxygen on that he has as needed. He has had some shortness of breath for several weeks, but it worsened to the point that he had to come to the Emergency Room. In the Emergency Room, his vital signs showed temperature 97.3, heart rate 79, blood pressure 159/82, respiratory rate 44, O2 saturation 91%. He had lab drawn and his CBC was within normal limits. Electrolytes were basically within normal limits with blood sugar 151, lactic acid 1.4, magnesium 1.6. He received several DuoNebs in the Emergency Room. Blood cultures were drawn. He was started on ceftriaxone as well as azithromycin. Chest x-ray was done which showed stable cardiomegaly. Otherwise unremarkable exam. I was called for hospital admission. PAST MEDICAL HISTORY: 1. Hypertension. 2. Chronic obstructive pulmonary disease. 3. Diabetes mellitus, type 2. 4. Obesity. 5. Sleep apnea. 6. Emphysema. 7. Plantar fasciitis. PAST SURGICAL HISTORY: 1. Tonsillectomy. 2. Right arm lymph node removed in 2013. 3. Multiple skin lesion excision due to skin cancer. CURRENT MEDICATIONS: Per the EMR and awaiting verification. ALLERGIES: CODEINE, PENICILLIN. FAMILY HISTORY: Noncontributory. SOCIAL HISTORY: He is a former smoker, but quit about 20 to 30 years ago. He denies any ETOH or illicit drug use. He is single, lives in [place]. REVIEW OF SYSTEMS: GENERAL: Positive for chills. Negative for fever or weight changes. HEENT: Negative for sinus symptoms, ear pain, vision changes or sore throat. RESPIRATORY: Positive for shortness of breath, wheezing and coughing. CARDIAC: Negative for chest pain, palpitations or tachycardia. GASTROINTESTINAL: Negative for nausea, vomiting, diarrhea or abdominal pain. GENITOURINARY: Negative for hematuria, dysuria or polyuria. NEUROLOGIC: Negative for headache, dizziness or seizures. PHYSICAL EXAMINATION: VITAL SIGNS: Temperature 98.1. Heart rate 90. Blood pressure 111/64. Respiratory rate 20. O2 saturation 91% on room air. GENERAL: This is a 63-year-old male patient who is lying in his hospital bed. He is in mild respiratory distress. HEENT: Normocephalic, atraumatic. Pupils are equal and reactive. Oropharynx is clear. NECK: Supple without mass. RESPIRATORY: Diminished breath sounds throughout with a few scattered rhonchi. No wheezing or crackles noted. CHEST: There is equal rise and fall of the chest with inspiration and expiration. CARDIOVASCULAR: Regular rate and rhythm. GASTROINTESTINAL: Abdomen is soft. He is obese. It is nontender. Bowel sounds are positive. EXTREMITIES: No cyanosis, clubbing or edema. NEUROLOGIC: Awake, alert and oriented times three. Cranial nerves II-XII are grossly intact as tested. LABORATORY: Labs and films are as per history of present illness. IMPRESSION: 1. Acute exacerbation of chronic obstructive pulmonary disease with a significant history of chronic obstructive pulmonary disease. 2. Hypertension. 3. Diabetes mellitus, type 2. 4. Obesity. 5. Obstructive sleep apnea. PLAN: The patient has been placed in observation. We will continue his antibiotics, azithromycin and Rocephin. I have continued an IV steroid taper and we will need to continue the taper tomorrow. He will have aggressive pulmonary hygiene including nebulizer treatments. Lovenox has been started for DVT prophylaxis, proton pump inhibitor for ulcer prophylaxis. His home medications will be restarted as they are verified. He has been started on blood sugars a.c. and h.s. with sliding scale Humalog insulin. We will monitor his cultures and change his antibiotics as needed. Tomorrow morning, I have done labs and chest x-ray. We will continue to monitor the patient closely and follow as needed. #[id number] [facility]
[2019-07-22] MEDS ORDERED: ONDANSETRON INJ 4 MG/2 ML VIAL IV PRN (16:41)
[2019-07-22] MEDS ORDERED: ALBUTEROL SULFATE 2.5 MG/3 ML VIAL NEB PRN (16:41)
[2019-07-22] MEDS ORDERED: SODIUM CHLORIDE 0.9% (FLUSH) 10 ML SYG IV PRN (16:41)
[2019-07-22] MEDS ORDERED: GLUCAGON INJ 1 MG VIAL SUBCU PRN (16:50)
[2019-07-22] MEDS ORDERED: DEXTROSE 50% 25 GM/50 ML SYG IV PRN (16:50)
[2019-07-22] MEDS ORDERED: AZITHROMYCIN IV 500 MG in SODIUM CHLORIDE 0.9% 250ML 250 ML IVPB SCH (17:00)
[2019-07-22] MEDS ORDERED: IV SET AND CAP CHANGE INJ INJ SCH (17:00)
[2019-07-22] MEDS ORDERED: SODIUM CHLORIDE 0.9% 250ML 250 ML ONE (17:58)
[2019-07-22] MEDS ORDERED: AZITHROMYCIN IV 500 MG VIAL IVPB ONE (17:58)
[2019-07-22] MEDS ORDERED: IPRATROPIUM/ALBUTEROL 3 ML VIAL INH SCH (20:00)
[2019-07-22] MEDS: SODIUM CHLORIDE 0.9% (FLUSH) 10 ML SYG IV SCH (20:48)
[2019-07-22] MEDS ORDERED: INSULIN LISPRO 100 UNITS/ML PEN SUBCU ONE (20:50)
[2019-07-22] MEDS: INSULIN LISPRO 100 UNITS/ML PEN SUBCU SCH (20:54)
[2019-07-22] MEDS ORDERED: traMADol HCL 50 MG TAB PO PRN (21:24)
[2019-07-22] MEDS ORDERED: ENOXAPARIN SODIUM 40 MG/0.4 ML SYG SUBCU SCH (21:30)
[2019-07-23] MEDS ORDERED: methylPREDNISolone SODIUM SUC 40 MG/ML VIAL IV SCH
[2019-07-23] MEDS: IPRATROPIUM/ALBUTEROL 3 ML VIAL NEB SCH ×4 (00:27→11:58)
[2019-07-23] MEDS ORDERED: PANTOPRAZOLE SODIUM IV 40 MG VIAL IV SCH (06:30)
[2019-07-23] MEDS: INSULIN LISPRO 100 UNITS/ML PEN SUBCU SCH (07:15)
[2019-07-23] MEDS ORDERED: POTASSIUM CHLORIDE 20 MEQ TAB PO SCH (07:30)
[2019-07-23] MEDS ORDERED: glipiZIDE EXTENDED REL (XL) 2.5 MG TAB PO SCH (07:30)
--- NOTE | 2019-07-23 07:35 | RAD ---
EXAM DESCRIPTION: Chest,2 Views CLINICAL HISTORY: 63 years Male, Pneumonia COMPARISON: 07/22/2019 TECHNIQUE: 2 view radiograph of the chest. IMPRESSION: Stable enlarged cardiac silhouette. Partially calcified aorta. Increased bilateral perihilar prominence and interstitial opacification predominantly involving the mid and lower lungs which may represent underlying vascular congestion and pulmonary edema versus pneumonia and/or aspiration. Probable small left pleural effusion. No right pleural effusion appreciated. No pneumothorax. Thoracic spondylosis. Electronically signed by: Terry Brown MD 07/23/2019 7:32 AM GROUP BILLING COORDINATOR
[2019-07-23] MEDS ORDERED: SODIUM CHL 0.9% 50ML MIN-BAG+ 50 ML IVPB ONE (07:43)
[2019-07-23] MEDS ORDERED: cefTRIAXone SODIUM 1 GM VIAL ONE (07:44)
[2019-07-23] MEDS ORDERED: methylPREDNISolone SODIUM SUC 40 MG/ML VIAL IV ONE (08:00)
[2019-07-23] MEDS ORDERED: hydroCHLOROthiazide 25 MG TAB PO SCH (09:00)
[2019-07-23] MEDS ORDERED: TAMSULOSIN 0.4 MG CAP PO SCH (09:00)
[2019-07-23] MEDS ORDERED: PROPRANOLOL HCL 60 MG PO SCH (09:00)
[2019-07-23] MEDS ORDERED: cefTRIAXone SODIUM 1 GM in SODIUM CHL 0.9% 50ML MIN-BAG+ 50 ML IVPB SCH (09:00)
[2019-07-23] MEDS ORDERED: BUDESONIDE NEBS 0.5 MG/2 ML INH NEB SCH (09:00)
[2019-07-23] MEDS ORDERED: ASPIRIN (CHEWABLE) 81 MG TAB PO SCH (09:00)
[2019-07-23] MEDS ORDERED: PRIMIDONE 50 MG TAB PO SCH (09:00)
[2019-07-23] MEDS ORDERED: BUMETANIDE TAB 2 MG TAB PO SCH (09:00)
[2019-07-23] MEDS ORDERED: predniSONE 20 MG TAB PO SCH (09:00)
[2019-07-23 09:03] VITALS: BP 160/78; TEMP 98.1
[2019-07-23] MEDS: SODIUM CHLORIDE 0.9% (FLUSH) 10 ML SYG IV SCH (09:15)
[2019-07-23] MEDS ORDERED: DEXTROSE 10% 500ML IVPB PRN (09:30)
[2019-07-23 12:20] VITALS: O2SAT 99
[2019-07-23] MEDS ORDERED: MONTELUKAST 10 MG TAB PO SCH (21:00)
[2019-07-24] MEDS ORDERED: PANTOPRAZOLE SODIUM TAB 40 MG PO SCH (06:30)
--- NOTE | 2019-07-30 08:37 | DS ---
SUPERVISING PHYSICIAN: Laron Valenzuela MD ADMISSION DIAGNOSIS: 1. Acute exacerbation of chronic obstructive pulmonary disease with a significant history of chronic obstructive pulmonary disease. 2. Hypertension. 3. Diabetes mellitus, type 2. 4. Obesity. 5. Obstructive sleep apnea. DISCHARGE DIAGNOSIS: 1. Acute exacerbation of chronic obstructive pulmonary disease, showing good response to treatment. 2. Hypertension, stable. 3. Diabetes mellitus, type 2. 4. Obesity. 5. Obstructive sleep apnea. REASON FOR HOSPITALIZATION: This is a 63-year-old male patient who presented to the Emergency Room complaining of worsening shortness of breath that started about two days ago. He just did not feel good and had some shortness of breath. He woke up this morning and could not breathe. He had several breathing treatments at home and he actually put his oxygen on that he has as needed. He has had some shortness of breath for several weeks, but it worsened to the point that he had to come to the Emergency Room. In the Emergency Room, his vital signs showed temperature 97.3, heart rate 79, blood pressure 159/82, respiratory rate 44, O2 saturation 91%. He had lab drawn and his CBC was within normal limits. Electrolytes were basically within normal limits with blood sugar 151, lactic acid 1.4, magnesium 1.6. He received several DuoNebs in the Emergency Room. Blood cultures were drawn. He was started on ceftriaxone as well as azithromycin. Chest x-ray was done which showed stable cardiomegaly. Otherwise unremarkable exam. The patient was placed in observation in stable condition. LABORATORY: White count on admission and on discharge was normal. At discharge, it was 9,200. Hemoglobin and hematocrit were stable at 13.5 and 39.5 respectively. There was a slight left shift prior to discharge on differential. Coagulation studies were within normal limits. On discharge, sodium was 132, creatinine 175, blood sugars remained elevated between 151 and 321. Lactic acid was normal at 1.4. Magnesium was 1.6 on admission. Liver functions were all within normal limits. MICROBIOLOGY: Blood cultures remained negative after 5 days. RADIOLOGY: Chest x-ray per radiologic interpretation showed stable cardiomegaly, otherwise urinalysis exam. He had a repeat chest x-ray prior to discharge and per radiologic interpretation showed stable enlarged cardiac silhouette, partially calcified aorta. Please see that final report for details. EKG on admission showed normal sinus rhythm with no acute changes. HOSPITAL COURSE: Mr. Braden was admitted for chronic obstructive pulmonary disease exacerbation and started on aggressive bronchial hygiene, breathing treatments as well as antibiotic coverage for concern for developing pneumonia with Rocephin and given some Solu-Medrol along with azithromycin. On the morning of discharge, the patient was found to be stable. Vital signs were stable. Saturation 96% on 2 liters nasal cannula. Blood pressure was 160/78 and he was afebrile with T-max of 98.1. It was felt that he had clinically responded to the treatment course and was stable enough to continue with outpatient management. Therefore, he was discharged. PLAN: Mr. Braden was discharged to followup with Dr. Escudero in 7 days or sooner as needed. He was to resume his home medications as prior to hospitalization. He was given instructions to return to the hospital should he have any worsening symptoms. Diet on discharge was diabetic. Activities to increase as tolerated. MEDICATIONS PRESCRIBED ON DISCHARGE: 1. Azithromycin 500 mg for 3 days total. 2. Medrol Dosepak 4 mg tablets to take as directed. CONDITION ON DISCHARGE: Stable. DISPOSITION: The patient is discharged home to care of family members. #[id number] [facility]
== END 2019-07-23 12:00 | disposition home health service (06) ==
LOC: ER 13:50 → MS 16:04
PROVIDERS: ADMIT Nurse Practitioner Acute Care; ATTEND Nurse Practitioner Family
DX: J44.1 Chronic obstructive pulmonary disease with (acute) exacerbation (principal); I11.9 Hypertensive heart disease without heart failure; E11.9 Type 2 diabetes mellitus without complications; E66.9 Obesity, unspecified; G47.33 Obstructive sleep apnea (adult) (pediatric); K21.9 Gastro-esophageal reflux disease without esophagitis; F17.220 Nicotine dependence, chewing tobacco, uncomplicated; I70.0 Atherosclerosis of aorta; M47.814 Spondylosis without myelopathy or radiculopathy, thoracic region; Z68.37 Body mass index [BMI] 37.0-37.9, adult; Z99.81 Dependence on supplemental oxygen; Z79.51 Long term (current) use of inhaled steroids; Z79.84 Long term (current) use of oral hypoglycemic drugs; Z79.82 Long term (current) use of aspirin; Z79.899 Other long term (current) drug therapy; Z88.0 Allergy status to penicillin; Z88.6 Allergy status to analgesic agent; Z85.828 Personal history of other malignant neoplasm of skin
CPT/HCPCS: 96366; 96367; 96365; 96375 ×2; 96376 ×2; 96372 ×2; J0696 ×2; J1030 ×2; J2930; J7050 ×3; J1650; J7626; J0456; J7620 ×6; J1815; 80053; 82948 ×2; 36415 ×3; 82550; 80048; 82553; 85025 ×2; 85730; 85610; 84484; 87077; 87186; 87040 ×2; 83880; 36416; 83605; 71045; 71046; 94640 ×6; 94760 ×4; 99285; 93005; G0378

== ENCOUNTER → 2019-09-03 | Outpatient (CLI) | payer MEDICARE, MEDICAID | LOC: NC 09:58 | PROVIDERS: ATTEND General Practice | DX: R30.0 Dysuria (principal) ==

== ENCOUNTER 2019-09-11 20:51 | Emergency (ER) | payer MEDICARE, MEDICAID ==
[2019-09-11] MEDS ORDERED: ACETAMINOPHEN-CAFF-BUTALBITAL 1 EA TAB PO ONE (21:06)
[2019-09-11 21:10] VITALS: O2SAT 96
--- NOTE | 2019-09-11 21:40 | RAD ---
EXAM: XR Chest, 2 Views CLINICAL HISTORY: chf TECHNIQUE: Frontal and lateral views of the chest. COMPARISON: 07/23/2019. FINDINGS: Lungs: Stable interstitial scarring. No consolidation. Pleural space: Unremarkable. No pneumothorax. Heart: Stable cardiac enlargement. Mediastinum: Unremarkable. Bones/joints: Unremarkable. IMPRESSION: Chronic changes as above. No acute disease. Electronically signed by: Pennie Blandon MD 09/11/2019 9:38 PM POLICE SURGEON
[2019-09-11 21:46] VITALS: BP 132/72; TEMP 97.1
--- NOTE | 2019-09-11 21:46 | ED.PDOC ---
History of Present Illness - General Chief Complaint: Lower Extremity Injury Stated Complaint: lower leg edema and pain Time Seen by Provider: 09/11/19 20:52 Source: patient Exam Limitations: no limitations - History of Present Illness Initial Comments: The patient is a 63-year-old male with chronic dependent edema presenting secondary to pain in bilateral lower extremities. Apparently his home health had wrapped his bilateral lower extremities to help move all fluid earlier in the day. He reports that was about 8 or 9 hours ago. He is started having pain underneath where they are wrapped. It does look like the Jim wrap that started to slide up and down and create some constriction banding areas. No skin breakdown. Pain did improve significantly once these were taken off. He was given a dose of 40 mg of IV Lasix with EMS. The patient is breathing fairly well. He is oxygenating normally for him on his 2 L. No desaturation with lying back. No respiratory distress. No chest pain. He actually apparently saw his primary care doctor earlier today and they olaf blood so we did not repeat that here today. Timing/Duration: 1-3 hours Severity: moderate Improving Factors: nothing Worsening Factors: nothing Associated Symptoms: denies symptoms Allergies/Adverse Reactions: Allergies Codeine Allergy (Verified 07/22/19 14:08) Penicillins Allergy (Verified 07/22/19 14:08) Home Medications: Ambulatory Orders Glipizide [Glipizide Xl] 2.5 mg PO BID 06/08/16 Albuterol Sulfate Nebs [Proventil Nebs] 2.5 mg INH Q4H PRN 07/06/17 Vyrxn-3-Avjn Ethyl Esters [Hmomf-9-Izyb Ethyl Esters 1 gm] 1 cap PO DAILY 02/23/18 Propranolol HCl [Propranolol HCl ER] 60 mg PO DAILY 02/23/18 Tamsulosin [Flomax] 0.4 mg PO DAILY 02/23/18 Hydrochlorothiazide 25 mg PO DAILY 12/29/18 Budesonide Nebs [Pulmicort Respules] 0.5 mg NEB BID 02/05/19 Ipratropium/Albuterol [Duoneb] 3 ml NEB QID 02/05/19 Primidone 50 mg PO BID 02/05/19 Aspirin [Aspirin Low Strength] 81 mg PO DAILY 04/05/19 Bumetanide [Bumex] 2 mg PO DAILY #5 day 04/05/19 Montelukast [Singulair] 10 mg PO BEDTIME 04/05/19 Potassium Chloride [Klor-Con] 20 meq PO DAILY #10 day 04/05/19 Azithromycin 500 mg PO DAILY #3 tab 07/23/19 Empagliflozin [Jardiance] 10 mg PO DAILY 09/11/19 Lisinopril & Hydrochlorothiazi [Lisinopril/Hydrochlorothi 10-12.5 mg] 1 tab PO DAILY 09/11/19 Review of Systems - Review of Systems Constitutional: States: no symptoms reported EENTM: States: no symptoms reported Respiratory: States: no symptoms reported, see HPI Cardiology: States: edema Gastrointestinal/Abdominal: States: no symptoms reported Genitourinary: States: no symptoms reported Musculoskeletal: States: no symptoms reported Skin: States: see HPI Neurological: States: no symptoms reported Endocrine: States: no symptoms reported All other Systems: No Change from Baseline Past Medical History (General) - Patient Medical History Hx Seizures: No Hx Stroke: No Hx Dementia: No Hx Asthma: No Hx of COPD: Yes Hx Cardiac Disorders: No Hx Congestive Heart Failure: No Hx Pacemaker: No Hx Hypertension: Yes Hx Thyroid Disease: No Hx Diabetes: Yes Hx Gastroesophageal Reflux: Yes Hx Renal Disease: No 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 Hx of HIV: No Hx Hepatitis C: No Hx MRSA: No - Vaccination History Hx Tetanus, Diphtheria Vaccination: Yes Hx Influenza Vaccination: Yes Hx Pneumococcal Vaccination: Yes Immunizations Up to Date: Yes - Social History Hx Tobacco Use: Yes Hx Chewing Tobacco Use: Yes - chews cigars, does not smoke Hx Alcohol Use: No Hx Substance Use: No Hx Substance Use Treatment: No Hx Depression: No Hx Physical Abuse: No Hx Emotional Abuse: No Hx Suspected Abuse: No - Female History Patient : No Family Medical History - Family History Mother Living Status: Hx Cardiac Disease: Yes - brother Hx Family Diabetes: Yes - mom Brother Family History: Unknown Name: Eliezer Braden Age (years): 64 Living Status: Still Living Hx Family Asthma: No Hx Family Congestive Heart Failure: No Hx Family Hypertension: No Hx Family Stroke: No Hx Cardiac Disease: No Hx Family Diabetes: No Hx Family Cancer: No Hx Family;Other: Patient doesn't know family medical history reports brother takes morphine for pain at home and is a disabled . Physical Exam - Physical Exam General Appearance: Alert, No apparent distress Eye Exam: bilateral normal Ears, Nose, Throat: hearing grossly normal, normal pharynx Neck: non-tender, supple Respiratory: lungs clear, normal breath sounds, no respiratory distress, no accessory muscle use Cardiovascular/Chest: normal peripheral pulses, no edema, other - Regular rate Peripheral Pulses: radial,right: 2+, radial,left: 2+ Gastrointestinal/Abdominal: non tender - Obese, soft Rectal Exam: deferred Extremity: normal range of motion, normal capillary refill, pedal edema Neurologic: registrar museum II-XII nml as tested, alert, normal mood/affect, oriented x 3 Skin Exam: normal color - Mild constriction banding at the lower extremities with Jim wraps were Comments: Vital Signs - 24 hr 09/11/19 09/11/19 21:01 21:45 Temperature 98.4 F 97.1 F L Pulse Rate [ 73 70 Right] Respiratory 20 16 Rate Blood Pressure 129/67 132/72 [Left Arm] O2 Sat by Pulse 96 96 Oximetry Progress - Progress Progress: 09/11/19 21:47 The patient is a 63-year-old male presenting to the emergency room secondary to pain in his lower extremities that is due to the Jim wraps moving and causing some constriction banding areas. Jim wraps were removed and the pain did improve significantly. He needs to discuss with his home health agency about getting him some compression stockings to use. He may be able to get these on and off easier than ijm wraps. Two-view chest x-ray shows no new pat hology and no significant effusions. He is oxygenating at his baseline on his 2 L. He needs to keep follow-up with his primary care doctor. Continue home medications as dictated by his primary care doctor. ER warnings are given. 09/11/19 21:49 archie hays [id number] - Results/Orders Results/Orders: 2 view chest x-ray shows no acute pathology. No effusions. No increased fluid overload. Chronic changes only. Departure - Departure Clinical Impression: Peripheral edema Disposition: Discharge to Home or Self Care Condition: Fair Departure Forms: ED Discharge - Pt. Copy, Patient Portal Self Enrollment Diet: low salt diet Activity: increase activity as tolerated Referrals: Felipe Escudero MD [Primary Care Provider] - 1-2 Weeks Home Medications: Ambulatory Orders Glipizide [Glipizide Xl] 2.5 mg PO BID 06/08/16 Albuterol Sulfate Nebs [Proventil Nebs] 2.5 mg INH Q4H PRN 07/06/17 Xyfoi-4-Bkki Ethyl Esters [Ydrbh-9-Mjpd Ethyl Esters 1 gm] 1 cap PO DAILY 02/23/18 Propranolol HCl [Propranolol HCl ER] 60 mg PO DAILY 02/23/18 Tamsulosin [Flomax] 0.4 mg PO DAILY 02/23/18 Hydrochlorothiazide 25 mg PO DAILY 12/29/18 Budesonide Nebs [Pulmicort Respules] 0.5 mg NEB BID 02/05/19 Ipratropium/Albuterol [Duoneb] 3 ml NEB QID 02/05/19 Primidone 50 mg PO BID 02/05/19 Aspirin [Aspirin Low Strength] 81 mg PO DAILY 04/05/19 Bumetanide [Bumex] 2 mg PO DAILY #5 day 04/05/19 Montelukast [Singulair] 10 mg PO BEDTIME 04/05/19 Potassium Chloride [Klor-Con] 20 meq PO DAILY #10 day 04/05/19 Azithromycin 500 mg PO DAILY #3 tab 07/23/19 Empagliflozin [Jardiance] 10 mg PO DAILY 09/11/19 Lisinopril & Hydrochlorothiazi [Lisinopril/Hydrochlorothi 10-12.5 mg] 1 tab PO DAILY 09/11/19 Additional Instructions: The patient is a 63-year-old male presenting to the emergency room secondary to pain in his lower extremities that is due to the Jim wraps moving and causing some constriction banding areas. Jim wraps were removed and the pain did improve significantly. He needs to discuss with his home health agency about getting him some compression stockings to use. He may be able to get these on and off easier than jim wraps. Two-view chest x-ray shows no new pathology and no significant effusions. He is oxygenating at his baseline on his 2 L. He needs to keep follow-up with his primary care doctor. Continue home medications as dictated by his primary care doctor. ER warnings are given.
== END 2019-09-11 21:05 | disposition home or self-care (01) ==
LOC: ER 20:51
DX: R60.0 Localized edema (principal); I10 Essential (primary) hypertension; K21.9 Gastro-esophageal reflux disease without esophagitis; J44.9 Chronic obstructive pulmonary disease, unspecified; Z85.89 Personal history of malignant neoplasm of other organs and systems; Z87.891 Personal history of nicotine dependence; Z79.82 Long term (current) use of aspirin; Z79.899 Other long term (current) drug therapy; Z88.5 Allergy status to narcotic agent; Z88.0 Allergy status to penicillin

== ENCOUNTER → 2019-10-19 | Outpatient (CLI) | payer MEDICARE, MEDICAID | DX: M19.011 Primary osteoarthritis, right shoulder (principal) ==

== ENCOUNTER 2020-01-16 08:29 | Emergency (ER) | payer MEDICARE, MEDICAID ==
--- NOTE | 2020-01-16 08:53 | ED.PDOC ---
History of Present Illness - General Chief Complaint: Neuro Symptoms/Deficits Stated Complaint: right leg pain Time Seen by Provider: 01/16/20 08:45 - History of Present Illness Initial Comments: 64 y/o male awoke this morning with pain, burning/numbness in RLE. He had varicose vein surgery 5 days ago in [place] by Dr Oneill. He has no F/C, CP, or SOB. NO other neuro deficit Timing/Duration: 1-3 hours Severity: moderate Improving Factors: rest Worsening Factors: nothing Associated Symptoms: denies symptoms Allergies/Adverse Reactions: Allergies Codeine Allergy (Verified 07/22/19 14:08) Penicillins Allergy (Verified 07/22/19 14:08) Home Medications: Ambulatory Orders Glipizide [Glipizide Xl] 2.5 mg PO BID 06/08/16 Jbleu-9-Cisz Ethyl Esters [Wbljv-6-Qqsw Ethyl Esters 1 gm] 1 cap PO DAILY 02/23/18 Propranolol HCl [Propranolol HCl ER] 60 mg PO DAILY 02/23/18 Tamsulosin [Flomax] 0.4 mg PO DAILY 02/23/18 Primidone 50 mg PO BID 02/05/19 Aspirin [Aspirin Low Strength] 162 mg PO DAILY 04/05/19 Montelukast [Singulair] 10 mg PO BEDTIME 04/05/19 Empagliflozin [Jardiance] 10 mg PO DAILY 09/11/19 Lisinopril & Hydrochlorothiazi [Lisinopril/Hydrochlorothi 10-12.5 mg] 1 tab PO DAILY 09/11/19 Bumetanide [Bumex] 2 mg PO DAILY PRN 01/16/20 Citalopram Hydrobromide [Citalopram] 20 mg PO BEDTIME 01/16/20 Dulaglutide [Trulicity] 1.5 mg SC MO 01/16/20 Hydrochlorothiazide 12.5 mg PO DAILY 01/16/20 Potassium Chloride [Potassium Chloride ER] 10 meq PO DAILY 01/16/20 Tramadol HCl 50 mg PO Q6H PRN 01/16/20 Review of Systems - Review of Systems Constitutional: States: weakness - RLE EENTM: States: no symptoms reported Respiratory: States: no symptoms reported Cardiology: States: no symptoms reported Gastrointestinal/Abdominal: States: no symptoms reported Genitourinary: States: other - frequent urination on diuretics Musculoskeletal: States: muscle pain, other - weakness RLE and burning Skin: States: no symptoms reported Neurological: States: numbness, paresthesia, weakness - RLE Hematologic/Lymphatic: States: see HPI Past Medical History (General) - Patient Medical History Hx Seizures: No Hx Stroke: No Hx Dementia: No Hx Asthma: No Hx of COPD: Yes Hx Cardiac Disorders: No Hx Congestive Heart Failure: No Hx Pacemaker: No Hx Hypertension: Yes Hx Thyroid Disease: No Hx Diabetes: Yes Hx Gastroesophageal Reflux: Yes Hx Renal Disease: No 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 Hx of HIV: No Hx Hepatitis C: No Hx MRSA: No - Vaccination History Hx Tetanus, Diphtheria Vaccination: Yes Hx Influenza Vaccination: Yes Hx Pneumococcal Vaccination: Yes - Social History Hx Tobacco Use: Yes Hx Chewing Tobacco Use: Yes - chews cigars, does not smoke Hx Alcohol Use: No Hx Substance Use: No Hx Substance Use Treatment: No Hx Depression: No Hx Physical Abuse: No Hx Emotional Abuse: No Hx Suspected Abuse: No - Female History Patient : No Family Medical History - Family History Mother Living Status: Hx Cardiac Disease: Yes - brother Hx Family Diabetes: Yes - mom Brother Family History: Unknown Name: Eliezer Braden Age (years): 64 Living Status: Still Living Hx Family Asthma: No Hx Family Congestive Heart Failure: No Hx Family Hypertension: No Hx Family Stroke: No Hx Cardiac Disease: No Hx Family Diabetes: No Hx Family Cancer: No Hx Family;Other: Patient doesn't know family medical history reports brother takes morphine for pain at home and is a disabled . Physical Exam - Physical Exam General Appearance: Alert Ears, Nose, Throat: hearing grossly normal Neck: non-tender, full range of motion, supple, normal inspection Respiratory: chest non-tender, lungs clear, normal breath sounds, no respiratory distress, no accessory muscle use Cardiovascular/Chest: normal peripheral pulses, regular rate, rhythm, no edema, no JVD, no murmur Peripheral Pulses: dorsalis pedis,right: 2+, dorsalis pedis,left: 2+ Gastrointestinal/Abdominal: normal bowel sounds, non tender, soft, distended Back Exam: normal inspection, no CVA tenderness, no vertebral tenderness Extremity: normal capillary refill, calf tenderness, swelling, other - He is able to hold both lower extremities up off the bed Neurologic: normal mood/affect, oriented x 3, abnormal gait Skin Exam: normal color, warm/dry - WESLEY tender calf, soft compartments Progress - Progress Progress: 01/16/20 11:50 Spoke with Peggy Kamara hospitalist, will consult with pharmacy and call back Departure - Departure Clinical Impression: Pulmonary embolism on left, Leg edema, right Time of Disposition: 12:42 Disposition: Discharge to Home or Self Care Condition: Good Departure Forms: ED Discharge - Pt. Copy, Patient Portal Self Enrollment Instructions: Anti-Clotting Medicines: Direct Oral Anticoagulants Referrals: Felipe Escudero MD [Primary Care Provider] - 1-2 Weeks Home Medications: Ambulatory Orders Glipizide [Glipizide Xl] 2.5 mg PO BID 06/08/16 Kmxsd-2-Dbfz Ethyl Esters [Osthv-6-Beub Ethyl Esters 1 gm] 1 cap PO DAILY 02/23/18 Propranolol HCl [Propranolol HCl ER] 60 mg PO DAILY 02/23/18 Tamsulosin [Flomax] 0.4 mg PO DAILY 02/23/18 Primidone 50 mg PO BID 02/05/19 Aspirin [Aspirin Low Strength] 162 mg PO DAILY 04/05/19 Montelukast [Singulair] 10 mg PO BEDTIME 04/05/19 Empagliflozin [Jardiance] 10 mg PO DAILY 09/11/19 Lisinopril & Hydrochlorothiazi [Lisinopril/Hydrochlorothi 10-12.5 mg] 1 tab PO DAILY 09/11/19 Bumetanide [Bumex] 2 mg PO DAILY PRN 01/16/20 Citalopram Hydrobromide [Citalopram] 20 mg PO BEDTIME 01/16/20 Dulaglutide [Trulicity] 1.5 mg SC MO 01/16/20 Hydrochlorothiazide 12.5 mg PO DAILY 01/16/20 Potassium Chloride [Potassium Chloride ER] 10 meq PO DAILY 01/16/20 Tramadol HCl 50 mg PO Q6H PRN 01/16/20
--- NOTE | 2020-01-16 09:13 | RAD ---
EXAM DESCRIPTION: Chest,1 View CLINICAL HISTORY: 64 years Male, possible PE COMPARISON: Previous study September 11, 2019 TECHNIQUE: AP portable chest. FINDINGS: Heart size is large with centrally increased pulmonary vascularity. Increased density in the region of the left lower lung zone could be partial volume loss or infiltrate obscuring the left hemidiaphragm. However large overlying panniculus in this area obscures the anatomy. No pulmonary mass or worrisome nodule. No pneumothorax or pleural effusion. Bones are unremarkable. IMPRESSION: Large heart with centrally increased vascularity. Question infiltrate or partial volume loss left lung base. Electronically signed by: Adrian Richmond MD 01/16/2020 9:12 AM CDT
[2020-01-16] MEDS ORDERED: SODIUM CHLORIDE 0.9% 50 ML BAG IVS ONE (09:30)
[2020-01-16] MEDS ORDERED: SODIUM CHLORIDE 0.9% 500ML 500 ML IVS PRN (09:35)
--- NOTE | 2020-01-16 09:51 | US ---
EXAM DESCRIPTION: Venous,Lower Extremity LT (accession [id number]), Venous,Lower Extremity RT (accession [id number]): Ultrasound. CLINICAL HISTORY: blood clot COMPARISON: CTA of the chest on this visit. TECHNIQUE: Two -dimensional and doppler sonographic evaluation of the deep venous system of the bilateral lower extremities. FINDINGS: Doppler evaluation shows normal color flow and normal phasicity and augmentation of the bilateral common femoral veins, junctions with the bilateral proximal saphenous veins, femoral veins, popliteal veins, greater saphenous veins, peroneal and posterior tibial veins. These veins showed normal occlusion with transducer pressure. Two-dimensional survey showed no echogenic clot within these veins. IMPRESSION: Duplex ultrasound evaluation of the bilateral lower extremity deep venous systems showing no evidence of thrombosis. Electronically signed by: Navid Gallagher MD 01/16/2020 9:50 AM CDT
--- NOTE | 2020-01-16 09:52 | US ---
EXAM DESCRIPTION: Venous,Lower Extremity LT (accession [id number]), Venous,Lower Extremity RT (accession [id number]): Ultrasound. CLINICAL HISTORY: blood clot COMPARISON: CTA of the chest on this visit. TECHNIQUE: Two -dimensional and doppler sonographic evaluation of the deep venous system of the bilateral lower extremities. FINDINGS: Doppler evaluation shows normal color flow and normal phasicity and augmentation of the bilateral common femoral veins, junctions with the bilateral proximal saphenous veins, femoral veins, popliteal veins, greater saphenous veins, peroneal and posterior tibial veins. These veins showed normal occlusion with transducer pressure. Two-dimensional survey showed no echogenic clot within these veins. IMPRESSION: Duplex ultrasound evaluation of the bilateral lower extremity deep venous systems showing no evidence of thrombosis. Electronically signed by: Navid Gallagher MD 01/16/2020 9:50 AM CDT
--- NOTE | 2020-01-16 11:23 | CT ---
EXAM DESCRIPTION: CTA Chest CLINICAL HISTORY: 64 years Male, PE COMPARISON: Chest radiograph 01/16/2020.. TECHNIQUE: CT images through the thorax with IV contrast using PE protocol. Multiplanar reformations provided. This examination was performed according to a CT angiographic (CTA) protocol with 3D post-processing. This involves 3D reconstructions, MIPS, volume rendered images and/or shaded surface rendering. This exam was performed according to our departmental dose-optimization program, which includes automated exposure control, adjustment of the mA and/or kV according to patient size and/or use of iterative reconstruction technique. CT CHEST PE FINDINGS: Pulmonary arteries and vascular: Diagnostic quality bolus. Filling defect within posterior basilar segmental branch of right lower lobe pulmonary artery. Nondilated main pulmonary artery trunk. No greater than mild atherosclerosis. Heart and mediastinum: Normal heart size. Small pericardial effusion measuring greater than 3 mm in thickness. Unremarkable esophagus. No mediastinal or hilar adenopathy. Thyroid Gland: Normal. Lungs: Linear atelectasis or scarring in the posterolateral left lower lobe. Airways: Normal. Pleura: Normal. Musculoskeletal and Soft Tissues: No acute fracture or aggressive appearing osseous lesion. Soft tissues unremarkable. Subphrenic Structures: Relative hypoattenuation of liver parenchyma. IMPRESSION: 1. Small burden pulmonary embolism within posterior basilar segmental branch of a right lower lobe pulmonary artery. No associated pulmonary findings for infarction. 2. Fatty liver. Electronically signed by: Terry Brown MD 01/16/2020 11:22 AM CDT
[2020-01-16 11:52] VITALS: O2SAT 94
[2020-01-16 14:08] VITALS: BP 93/55; TEMP 97.4
== END 2020-01-16 14:09 | disposition home or self-care (01) ==
LOC: ER 08:29
DX: I26.99 Other pulmonary embolism without acute cor pulmonale (principal); R60.0 Localized edema; M79.661 Pain in right lower leg; I10 Essential (primary) hypertension; J44.9 Chronic obstructive pulmonary disease, unspecified; F17.220 Nicotine dependence, chewing tobacco, uncomplicated; Z79.899 Other long term (current) drug therapy; Z79.82 Long term (current) use of aspirin
CPT/HCPCS: 36415; 71045; 71275; 80053; 82550; 85025; 93971; J7040

== ENCOUNTER 2020-01-19 13:59 | Emergency (ER) | payer MEDICARE, MEDICAID ==
[2020-01-19] MEDS ORDERED: diazePAM 2 MG TAB PO ONE (14:18)
[2020-01-19] MEDS ORDERED: traMADol HCL 50 MG TAB PO ONE (14:18)
[2020-01-19] MEDS ORDERED: ALUM & MAG HYDROX-SIMETHICONE 30 ML, LIDOCAINE VISCOUS 2% 15 ML PO ONE ×2 (14:18)
[2020-01-19 14:21] VITALS: TEMP 97.8
--- NOTE | 2020-01-19 14:37 | RAD ---
EXAM DESCRIPTION: Chest,2 Views CLINICAL HISTORY: 64 years Male, recent pe, chest wall pain COMPARISON: 01/16/2020 FINDINGS: There is mild cardiomegaly. There is atherosclerosis about the thoracic aorta. The lung granados are clear of active infiltrates. The pulmonary vascularity is unremarkable. No active pleural disease is present. IMPRESSION: 1. No active infiltrates. 2. Mild cardiomegaly, stable. 3. Atherosclerotic disease. Electronically signed by: Frank Robb MD 01/19/2020 2:36 PM CDT
[2020-01-19] MEDS ORDERED: SODIUM CHLORIDE 0.9% 1000ML 500 ML IVS ONE (15:44)
[2020-01-19] MEDS ORDERED: FAMOTIDINE 20 MG TAB PO ONE (16:07)
--- NOTE | 2020-01-19 16:30 | ED.PDOC ---
History of Present Illness - General Chief Complaint: General Stated Complaint: weakness,dizzy,chest discomfort Time Seen by Provider: 01/19/20 14:00 Source: patient Exam Limitations: no limitations - History of Present Illness Initial Comments: The patient is a 64-year-old male presented emergency room complaining of burning chest pain to the left anterior chest for the last 30 or 40 minutes. Additionally he is having some burning in his legs. No syncope. He has had some dizziness issues recently and also some mild hearing issues recently. No fevers. No altered mental status. No new focal neurological changes. He does have chronic dependent edema for which he takes diuretics. He also has chronic peripheral neuropathy that causes him some pain. Additionally he was recently diagnosed with a DVT and small pulmonary embolus for which she is now on Xarelto. He has some mild epigastric discomfort to palpation. He is not on any acid reducing medications. No vomiting. The patient has bilateral cerumen impaction. The patient has 2+ edema to bilateral lower extremities that starts about mid calf. Blood pressures are low normal here. The patient is very anxious. Timing/Duration: 1 hour Severity: moderate Improving Factors: nothing Worsening Factors: nothing Associated Symptoms: chest pain Allergies/Adverse Reactions: Allergies Codeine Allergy (Verified 07/22/19 14:08) Penicillins Allergy (Verified 07/22/19 14:08) Home Medications: Ambulatory Orders Glipizide [Glipizide Xl] 2.5 mg PO BID 06/08/16 Propranolol HCl [Propranolol HCl ER] 60 mg PO DAILY 02/23/18 Tamsulosin [Flomax] 0.4 mg PO DAILY 02/23/18 Primidone 50 mg PO BID 02/05/19 Aspirin [Aspirin Low Strength] 81 mg PO DAILY 04/05/19 Montelukast [Singulair] 10 mg PO BEDTIME 04/05/19 Lisinopril & Hydrochlorothiazi [Lisinopril/Hydrochlorothi 10-12.5 mg] 1 tab PO DAILY 09/11/19 Bumetanide [Bumex] 2 mg PO BID PRN 01/16/20 Dulaglutide [Trulicity] 1.5 mg SC MO 01/16/20 Hydrochlorothiazide 12.5 mg PO DAILY 01/16/20 Potassium Chloride [Potassium Chloride ER] 10 meq PO DAILY 01/16/20 Tramadol HCl 50 mg PO Q6H PRN 01/16/20 Citalopram Hydrobromide [Citalopram] 20 mg PO DAILY 01/19/20 Empagliflozin [Jardiance] 10 mg PO DAILY 01/19/20 Famotidine 20 mg PO BID #60 tab 01/19/20 Rivaroxaban [Xarelto] 15 mg PO BID 01/19/20 Review of Systems - Review of Systems Constitutional: States: no symptoms reported EENTM: States: no symptoms reported Respiratory: States: no symptoms reported Cardiology: States: chest pain Gastrointestinal/Abdominal: States: no symptoms reported Genitourinary: States: no symptoms reported Musculoskeletal: States: no symptoms reported Skin: States: no symptoms reported Neurological: States: anxiety, paresthesia Endocrine: States: no symptoms reported All other Systems: No Change from Baseline Past Medical History (General) - Patient Medical History Hx Seizures: No Hx Stroke: No Hx Dementia: No Hx Asthma: No Hx of COPD: Yes Hx Cardiac Disorders: No Hx Congestive Heart Failure: No Hx Pacemaker: No Hx Hypertension: Yes Hx Thyroid Disease: No Hx Diabetes: Yes Hx Gastroesophageal Reflux: Yes Hx Renal Disease: No 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 Hx of HIV: No Hx Hepatitis C: No Hx MRSA: No Surgical History: cancer surgery, tonsillectomy - Vaccination History Hx Tetanus, Diphtheria Vaccination: Yes Hx Influenza Vaccination: Yes Hx Pneumococcal Vaccination: Yes - Social History Hx Tobacco Use: No Hx Chewing Tobacco Use: Yes - chews cigars, does not smoke Hx Alcohol Use: No Hx Substance Use: No Hx Substance Use Treatment: No Hx Depression: No Hx Physical Abuse: No Hx Emotional Abuse: No Hx Suspected Abuse: No - Female History Patient : No Family Medical History - Family History Mother Living Status: Hx Cardiac Disease: Yes - brother Hx Family Diabetes: Yes - mom Brother Family History: Unknown Name: Eliezer Braden Age (years): 64 Living Status: Still Living Hx Family Asthma: No Hx Family Congestive Heart Failure: No Hx Family Hypertension: No Hx Family Stroke: No Hx Cardiac Disease: No Hx Family Diabetes: No Hx Family Cancer: No Hx Family;Other: Patient doesn't know family medical history reports brother takes morphine for pain at home and is a disabled . Physical Exam - Physical Exam General Appearance: Alert, Anxious, No apparent distress Eye Exam: bilateral normal Ears, Nose, Throat: normal pharynx, other - Bilateral cerumen impaction. Decreased hearing as a result. Neck: full range of motion, supple Respiratory: lungs clear, normal breath sounds, no respiratory distress, no accessory muscle use, other - Left pectoralis discomfort to palpation. This does reproduce his chest pain. Cardiovascular/Chest: normal peripheral pulses, other - Regular rate Peripheral Pulses: radial,right: 2+, radial,left: 2+ Gastrointestinal/Abdominal: soft, other - Mild epigastric discomfort to palpation. Rectal Exam: deferred Back Exam: no CVA tenderness, no vertebral tenderness Extremity: normal range of motion, non-tender, normal inspection, normal capillary refill, pedal edema Neurologic: auto refinisher II-XII nml as tested, alert, oriented x 3, other - Chronic peripheral neuropathy and the patient is anxious Skin Exam: normal color Comments: Vital Signs - 24 hr 01/19/20 01/19/20 01/19/20 14:13 14:17 14:19 Temperature 97.8 F Pulse Rate [ 72 87 69 monitor] Respiratory 22 Rate Blood Pressure 122/71 111/56 107/65 [Left Arm] O2 Sat by Pulse 94 L Oximetry 01/19/20 01/19/20 14:21 15:00 Temperature Pulse Rate [ 80 70 monitor] Respiratory 21 Rate Blood Pressure 104/60 102/59 [Left Arm] O2 Sat by Pulse 96 Oximetry Progress - Progress Progress: 01/19/20 16:33 The patient is a 64-year-old male presenting with dizziness and what appears to be muscular chest pain. Chest pain is reproducible with palpation of the pectoralis muscle. Initial heart enzymes are negative and patient defers further draws due to difficulty with the sticks. Additionally the patient's burning in his lower extremities is likely due to the peripheral edema. This is likely flaring his peripheral neuropathy. I would recommend that he wears compression stockings in order to help with the problem. The dizziness is likely due to bilateral cerumen impaction which is also affecting his hearing, as well as a low blood pressure that is likely due to mild to moderate dehydration and medications. I am going to have the patient hold his Bumex for the rest of the weekend. Additionally I want him to stop his lisinopril hydrochlorothiazide until he sees his primary care doctor again. Systolic blood pressures have been ranging from 100-110, which I believe is too low, causing him to have dizziness. The cerumen impaction is also contributing to that. I did spend about 25 minutes trying to disimpact both ears. We did remove a fair amount of cerumen however there is still a significant amount present. He is going to use hydrogen peroxide each night in both ears before he showers in order to get them disimpacted. His primary care doctor needs to check on this again at his visit this coming week. The patient also has a gastritis and will be started on Pepcid twice daily for the next month. This is likely been complicated by the Xarelto. Incidentally found is that the patient has moderate thrombocytopenia. Being that he is now on a potent blood thinner, this does need to be followed. Additional outpt work-up may be warranted. The patient will be allowed to go home. Vital signs are stable. He needs to ambulate carefully and follow back up with his primary care doctor next week. archie hays [phone] - Results/Orders Results/Orders: Chest x-ray shows no evidence of any acute fluid overload. Mild cardiomegaly. No significant infiltrate. Laboratory Tests 01/19/20 01/19/20 15:08 15:08 WBC 7.8 RBC 4.45 L Hgb 14.9 Hct 44.2 MCV 99.3 H MCH 33.6 H MCHC 33.8 RDW 15.2 H Plt Count 63 L MPV 8.8 Absolute Neuts (auto) 4.90 Absolute Lymphs (auto) 1.80 Absolute Monos (auto) 0.80 Absolute Eos (auto) 0.10 Absolute Basos (auto) 0.10 Neutrophils % 62.7 Lymphocytes % 23.5 Monocytes % 10.9 H Eosinophils % 1.9 Basophils % 1.0 Sodium 133 L Potassium 3.7 Chloride 90 L Carbon Dioxide 31 Anion Gap 15.7 BUN 16 Creatinine 0.97 BUN/Creatinine Ratio 16.5 Random Glucose 202 H Serum Osmolality 273.3 L Calcium 9.2 Magnesium 2.0 Total Bilirubin 0.4 AST 33 ALT 44 Alkaline Phosphatase 69 Creatine Kinase 41 CK-MB (CK-2) 1.6 CK-MB (CK-2) % Not Reportable Troponin I < 0.02 B-Natriuretic Peptide 32.4 Serum Total Protein 7.6 Albumin 4.4 Globulin 3.2 Albumin/Globulin Ratio 1.4 EKG shows normal sinus rhythm at 68 bpm. Normal axis. Mild right bundle branch block. Normal R wave progression. No ST segment or T wave changes indicative of acute ischemia. Normal QT interval. Departure - Departure Clinical Impression: Thrombocytopenia, Orthostasis Peripheral neuropathy Qualifiers: Peripheral neuropathy type: polyneuropathy, unspecified Qualified Code(s): G62.9 - Polyneuropathy, unspecified Cerumen impaction Qualifiers: Laterality: bilateral Qualified Code(s): H61.23 - Impacted cerumen, bilateral Gastritis Qualifiers: Gastritis type: superficial Chronicity: acute Gastritis bleeding: without bleeding Qualified Code(s): K29.00 - Acute gastritis without bleeding Disposition: Discharge to Home or Self Care Condition: Fair Departure Forms: ED Discharge - Pt. Copy, Patient Portal Self Enrollment Instructions: Dehydration, Adult (DC), Gastritis Diet: diabetic diet Activity: increase activity as tolerated Referrals: Felipe Escudero MD [Primary Care Provider] - 1-5 Days Prescriptions: Famotidine 20 mg PO BID #60 tab Home Medications: Ambulatory Orders Glipizide [Glipizide Xl] 2.5 mg PO BID 06/08/16 Propranolol HCl [Propranolol HCl ER] 60 mg PO DAILY 02/23/18 Tamsulosin [Flomax] 0.4 mg PO DAILY 02/23/18 Primidone 50 mg PO BID 02/05/19 Aspirin [Aspirin Low Strength] 81 mg PO DAILY 04/05/19 Montelukast [Singulair] 10 mg PO BEDTIME 04/05/19 Lisinopril & Hydrochlorothiazi [Lisinopril/Hydrochlorothi 10-12.5 mg] 1 tab PO DAILY 09/11/19 Bumetanide [Bumex] 2 mg PO BID PRN 01/16/20 Dulaglutide [Trulicity] 1.5 mg SC MO 01/16/20 Hydrochlorothiazide 12.5 mg PO DAILY 01/16/20 Potassium Chloride [Potassium Chloride ER] 10 meq PO DAILY 01/16/20 Tramadol HCl 50 mg PO Q6H PRN 01/16/20 Citalopram Hydrobromide [Citalopram] 20 mg PO DAILY 01/19/20 Empagliflozin [Jardiance] 10 mg PO DAILY 01/19/20 Famotidine 20 mg PO BID #60 tab 01/19/20 Rivaroxaban [Xarelto] 15 mg PO BID 01/19/20 Additional Instructions: The patient is a 64-year-old male presenting with dizziness and what appears to be muscular chest pain. Chest pain is reproducible with palpation of the pectoralis muscle. Initial heart enzymes are negative and patient defers further draws due to difficulty with the sticks. Additionally the patient's burning in his lower extremities is likely due to the peripheral edema. This is likely flaring his peripheral neuropathy. I would recommend that he wears compression stockings in order to help with the problem. The dizziness is likely due to bilateral cerumen impaction which is also affecting his hearing, as well as a low blood pressure that is likely due to mild to moderate dehydration and medications. I am going to have the patient hold his Bumex for the rest of the weekend. Additionally I want him to stop his lisinopril hydrochlorothiazide until he sees his primary care doctor again. Systolic blood pressures have been ranging from 100-110, which I believe is too low, causing him to have dizziness. The cerumen impaction is also contributing to that. I did spend about 25 minutes trying to disimpact both ears. We did remove a fair amount of cerumen however there is still a significant amount present. He is going to use hydrogen peroxide each night in both ears before he showers in order to get them disimpacted. His primary care doctor needs to check on this again at his visit this coming week. The patient also has a gastritis and will be started on Pepcid twice daily for the next month. This is likely been complicated by the Xarelto. Incidentally found is that the patient has moderate thrombocytopenia. Being that he is now on a potent blood thinner, this does need to be followed. Additional outpt work-up may be warranted. The patient will be allowed to go home. Vital signs are stable. He needs to ambulate carefully and follow back up with his primary care doctor next week.
[2020-01-19 16:57] VITALS: BP 114/68; O2SAT 97
== END 2020-01-19 16:57 | disposition home or self-care (01) ==
LOC: ER 13:59
DX: G62.9 Polyneuropathy, unspecified (principal); H61.23 Impacted cerumen, bilateral; K29.00 Acute gastritis without bleeding; R07.89 Other chest pain; R42 Dizziness and giddiness; I10 Essential (primary) hypertension; F17.220 Nicotine dependence, chewing tobacco, uncomplicated

== ENCOUNTER 2020-07-15 05:28 | Day surgery (SDC) | payer MEDICARE, MEDICAID ==
[2020-07-15] MEDS ORDERED: LIDOCAINE 1% 10 ML VIAL INJ ONE (05:29)
[2020-07-15] MEDS ORDERED: PROPOFOL 200 MG/20 ML VIAL IV ONE (05:29)
[2020-07-15] MEDS ORDERED: LACTATED RINGERS 1,000 ML IVS ONE (08:30)
[2020-07-15] MEDS ORDERED: SODIUM CHLORIDE 0.9% (FLUSH) 10 ML SYG ONE (08:34)
[2020-07-15] MEDS ORDERED: KETAMINE HCL 100 MG/ML VIAL ONE (10:20)
[2020-07-15] MEDS ORDERED: MIDAZOLAM INJ 2 MG/2 ML VIAL ONE (10:20)
[2020-07-15] MEDS ORDERED: HYDROcodone 5MG/APAP 325MG 1 EA TAB ONE (11:10)
[2020-07-15] MEDS ORDERED: HYDROcodone 5MG/APAP 325MG 1 EA TAB PO ONE (11:10)
[2020-07-15 12:19] VITALS: BP 144/72; TEMP 97.4; O2SAT 95
--- NOTE | 2020-07-18 10:13 | OP ---
DATE OF PROCEDURE: 07/15/20 PREOPERATIVE DIAGNOSIS: 1. Arthrofibrosis of the right shoulder. POSTOPERATIVE DIAGNOSIS: 1. Arthrofibrosis of the right shoulder. PROCEDURE: 1. Closed manipulation. SURGEON: Roscoe Quniones MD. DIGITAL ACCOUNT SUPERVISOR: Navid Goldsmith CST, SA-C. ANESTHESIA: Conscious sedation. COMPLICATIONS: None. FINDINGS: Preoperative abduction to approximately 50 degrees, forward flexion to approximately 60 degrees, external rotation to 20 degrees and internal rotation to the plane of the body. Postoperative abduction to about 160 degrees, forward flexion full, external rotation to 75 degrees, internal rotation beyond the plane of the body. INDICATION: Mr. Braden has a history of rotator cuff repair. Unfortunately, he has failed to be fully participating in his therapy and, therefore, he has developed a frozen shoulder. Because of that, he and I discussed the options available to him. After discussing the risks, benefits and alternatives to closed manipulation, he gave informed consent for the above procedure. PROCEDURE: The patient was brought to the Operating Room and placed in supine position. Sedation was administered and a closed manipulation was performed. The arm was carefully taken through a range of motion and I achieved the ranges of motion noted above. A fluoroscopic image was taken to ensure that there were no acute complications. Following, the patient was taken back to the Day Surgery Unit. POSTOPERATIVE PLAN: The patient will begin immediate aggressive therapy. He has expressed understanding that that is imperative. #[id number] MTDD
== END 2020-07-15 12:05 | disposition home or self-care (01) ==
LOC: AMB 05:28
PROVIDERS: ATTEND Orthopaedic Surgery
DX: M24.611 Ankylosis, right shoulder (principal); F32.9 Major depressive disorder, single episode, unspecified; E11.9 Type 2 diabetes mellitus without complications; I10 Essential (primary) hypertension; Z88.5 Allergy status to narcotic agent; Z88.0 Allergy status to penicillin; Z79.899 Other long term (current) drug therapy
CPT/HCPCS: 01620; 23700; 36416; 76000; 80307; 82948; A4216; J2250; J3490; J7120